=== PATIENT | female | born 1930 | race Caucasian/White ===

== ENCOUNTER 2017-12-25 17:10 | Inpatient (IN) ==
--- NOTE | 2017-12-25 17:24 | Emergency Department Note ---
Fall HPI - General Chief Complaint: Fall Stated Complaint: Fall Time Seen by Provider: 12/25/17 17:13 Source: patient Mode of arrival: EMS - History of Present Illness HPI Narrative: 87-year-old female who was seen 3 days ago for a fall in the bathroom which occurred days ago. She received some thoracic compression fractures.. She states that she was using a walker when she fell in the laundry room , she did have some help with the nursing staff with this fall. some tenderness to the right anterior rib cage area. There is no shortness of breath. no Loss of consciousness patient states she has very ;little pain, but unsure how reliable this is. she is on the indeendent living side and may need more asistance no head injury. - Related Data Home Medications Medication Instructions Recorded Confirmed FLUoxetine HCL [Fluoxetine HCl] 40 mg PO DAILYP 12/02/16 12/21/17 Gabapentin [Neurontin] 100 mg PO BID 12/02/16 12/21/17 Levothyroxine [Synthroid] 100 mcg PO DAILY 12/02/16 12/21/17 Losartan [Cozaar] 100 mg PO DAILY 12/02/16 12/21/17 Memantine [Namenda] 10 mg PO DAILY 12/02/16 12/21/17 Tolterodine [Detrol LA] 2 mg PO DAILY 12/02/16 12/21/17 Trimethoprim 100 mg PO DAILY 12/02/16 12/21/17 amLODIPine [Norvasc] 2.5 mg PO ONCE 12/02/16 12/21/17 Ranitidine HCl [Zantac] 300 mg PO DAILY 09/18/17 12/21/17 Previous Rx's Medication Instructions Recorded Naproxen 500 mg PO BID #20 tab 12/23/17 Allergies Allergy/AdvReac Type Severity Reaction Status Date / Time No Known Drug Allergies Allergy Verified 12/25/17 17:12 Fall PMH - Past Medical History Medical history: Reports: dementia, GERD, hypertension, thyroid disease, other ( urinary incontinence) Psychiatric history: Reports: depression Family history: Reports: no significant family history - Social History smoking status: Never smoker Alcohol use: Reports: None Drug use: Reports: none Physical Exam Limitations: no limitations Course Vital Signs Temperature 97.0 F 12/25/17 17:10 Pulse Rate 84 12/25/17 17:10 Respiratory Rate 14 12/25/17 17:10 Blood Pressure 134/78 12/25/17 17:10 Pulse Oximetry (%) 91 12/25/17 17:10 Temperature 98.0 F 12/25/17 19:00 Pulse Rate 76 12/25/17 18:42 Respiratory Rate 14 12/25/17 17:10 Blood Pressure 122/65 12/25/17 18:42 Pulse Oximetry (%) 94 12/25/17 18:42 Fall - Lab Data Result diagrams: 12/25/17 08:03 Lab Results 12/25/17 12/25/17 12/25/17 Range/Units 08:03 17:55 18:03 WBC 12.1 H (4.5-11.0) K/mcL RBC 4.27 (4.00-5.20) M/mcL Hgb 13.1 (12.0-15.0) g/dL Hct 39.3 (36.0-48.0) % POC Hct 38.0 (36.0-48.0) % MCV 92.0 (80.0-100.0) fL MCH 30.6 (26.0-34.0) pg MCHC 33.2 (31.0-36.0) g/dL RDW 15.2 H (11.5-14.5) % Plt Count 383 (140-440) K/mcL MPV 7.4 (7.4-10.4) fL Gran % 74.9 (38.0-78.0) % Lymph % (Auto) 13.8 L (15.5-49.0) % [place] % (Auto) 6.8 (1.0-12.0) % Eos % (Auto) 4.2 (0.0-7.0) % Baso % (Auto) 0.3 (0.0-2.0) % Gran # 9.0 H (1.8-8.0) K/mcL Lymph # (Auto) 1.7 (1.5-4.8) K/mcL [place] # (Auto) 0.8 (0.1-0.9) K/mcL Eos # (Auto) 0.5 (0.0-0.7) K/mcL Baso # (Auto) 0 (0.0-0.3) K/mcL VBG Lactic Acid (0.5-2.2) mmol/L POC Sodium 138 (133-145) mmol/L POC Potassium 4.1 (3.3-5.1) mmol/L POC Chloride 102 (96-108) mmol/L POC Total CO2 26 (22-30) mmol/L POC BUN 24 H (8-23) mg/dl POC Creatinine 0.9 (0.6-1.1) mg/dl POC Glucose 96 (70-105) mg/dL POC WB Ioniz Calcium 1.20 (1.16-1.32) mmol/L Urine Color Yellow Urine Appearance Hazy Urine pH 5.0 (5.0-9.0) Ur Specific [place] 1.019 (1.000-1.035) Urine Protein 30 A (NEG) mg/dL Urine Glucose (UA) Negative (NEG) mg/dL Urine Ketones Neg (NEG) mg/dL Urine Occult Blood 0.03 A (<0.03) mg/dL Urine Nitrate Neg (NEG) Urine Bilirubin Neg (NEG) mg/dL Urine Urobilinogen Neg (NEG) mg/dL Ur Leukocyte Esterase 500 A (NEG) /uL Urine RBC 6 H (0-1) /hpf Urine WBC 95 H (0-4) /hpf Ur Squamous Epith Cells 7 H (0-4) /hpf Ur Transition Epith Cell 4 H (0-2) /hpf Urine Bacteria Many A (0) /hpf Urine Mucus Many A (0) /hpf 12/25/17 Range/Units 18:58 WBC (4.5-11.0) K/mcL RBC (4.00-5.20) M/mcL Hgb (12.0-15.0) g/dL Hct (36.0-48.0) % POC Hct (36.0-48.0) % MCV (80.0-100.0) fL MCH (26.0-34.0) pg MCHC (31.0-36.0) g/dL RDW (11.5-14.5) % Plt Count (140-440) K/mcL MPV (7.4-10.4) fL Gran % (38.0-78.0) % Lymph % (Auto) (15.5-49.0) % [place] % (Auto) (1.0-12.0) % Eos % (Auto) (0.0-7.0) % Baso % (Auto) (0.0-2.0) % Gran # (1.8-8.0) K/mcL Lymph # (Auto) (1.5-4.8) K/mcL [place] # (Auto) (0.1-0.9) K/mcL Eos # (Auto) (0.0-0.7) K/mcL Baso # (Auto) (0.0-0.3) K/mcL VBG Lactic Acid 0.8 (0.5-2.2) mmol/L POC Sodium (133-145) mmol/L POC Potassium (3.3-5.1) mmol/L POC Chloride (96-108) mmol/L POC Total CO2 (22-30) mmol/L POC BUN (8-23) mg/dl POC Creatinine (0.6-1.1) mg/dl POC Glucose (70-105) mg/dL POC WB Ioniz Calcium (1.16-1.32) mmol/L Urine Color Urine Appearance Urine pH (5.0-9.0) Ur Specific [place] (1.000-1.035) Urine Protein (NEG) mg/dL Urine Glucose (UA) (NEG) mg/dL Urine Ketones (NEG) mg/dL Urine Occult Blood (<0.03) mg/dL Urine Nitrate (NEG) Urine Bilirubin (NEG) mg/dL Urine Urobilinogen (NEG) mg/dL Ur Leukocyte Esterase (NEG) /uL Urine RBC (0-1) /hpf Urine WBC (0-4) /hpf Ur Squamous Epith Cells (0-4) /hpf Ur Transition Epith Cell (0-2) /hpf Urine Bacteria (0) /hpf Urine Mucus (0) /hpf Disposition Pt seen by [facility]/PA only: No Referrals: Shaye Noonan MD [Primary Care Provider] -
[2017-12-25 18:27] LABS: Basophils # (Auto) 0 K/mcL (0.0-0.3); Basophils % (Auto) 0.3 % (0.0-2.0); Eosinophils # (Auto) 0.5 K/mcL (0.0-0.7); Eosinophils % (Auto) 4.2 % (0.0-7.0); Granulocytes % (Auto) 74.9 % (38.0-78.0); Lymphocytes # (Auto) 1.7 K/mcL (1.5-4.8); Lymphocytes % (Auto) 13.8 % (15.5-49.0); Mean Corpuscular HGB Conc 33.2 g/dL (31.0-36.0); Mean Corpuscular Hemoglobin 30.6 pg (26.0-34.0); Monocytes # (Auto) 0.8 K/mcL (0.1-0.9); Monocytes % (Auto) 6.8 % (1.0-12.0); Platelet Count 383 K/mcL (140-440); RBC 4.27 M/mcL (4.00-5.20); Red Cell Distribution Width 15.2 % (11.5-14.5)
[2017-12-25 18:34] LABS: Appearance,Urine HAZY; Bacteria,Urine MANY /hpf (0); Bilirubin,Urine NEG (NEG); Color,Urine YELLOW; Glucose,Urine (UA) NEGATIVE (NEG); Leukocyte Esterase,Urine 500 /uL (NEG); Mucus,Urine MANY /hpf (0); Protein,Urine 30 mg/dL (NEG); Specific Gravity,Urine 1.019 (1.000-1.035); Urine Blood 0.03 mg/dL (<0.03); Urine RBC 6 /hpf (0-1); Urine Squamous Epithelial Cell 7 /hpf (0-4); Urine Transitional Epi Cells 4 /hpf (0-2); Urine WBC 95 /hpf (0-4); Urobilinogen,Urine NEG (NEG)
[2017-12-25] MEDS: 0.9 % SODIUM CHLORIDE 1,000 ML IV SCH ×2 (19:00→22:21)
--- NOTE | 2017-12-25 19:22 | XRay Report ---
CLINICAL INFORMATION: Trauma COMPARISON: 06/03/2017 FINDINGS: Heart size, mediastinum and pulmonary vessels are normal. There is minor bibasilar atelectasis. No effusions or pneumothorax. No evidence of rib fracture IMPRESSION: Negative Interpreted and Authenticated by: Oumar Lei 12/25/17
[2017-12-25] MEDS ORDERED: LEVOFLOXACIN 500 MG/100 ML BAG IV ONE (19:46)
[2017-12-25] MEDS ORDERED: ACETAMINOPHEN 325 MG TABLET PO PRN (21:52)
[2017-12-25] MEDS ORDERED: ONDANSETRON 4 MG/2 ML VIAL IV PRN (21:52)
[2017-12-25] MEDS ORDERED: traMADol 50 MG TABLET PO PRN (21:52)
[2017-12-25] MEDS ORDERED: BISACODYL 5 MG TABLET PO PRN (21:52)
[2017-12-25] MEDS ORDERED: MAGNESIUM HYDROXIDE 30 ML ORAL.SUSP PO PRN (21:52)
[2017-12-25] MEDS: 0.9 % SODIUM CHLORIDE 10 ML SYRINGE IV SCH (22:25)
--- NOTE | 2017-12-25 22:34 | Internal Med History&Physical ---
Medical - H&P: HPI Patient information: Note initiated : 12/25/17 at 10:30 pm Service Date, if different from initiated Date: [] Patient: Fidelina Blackwell 87 y/o F admitted on 12/25/17 for Fall. Chief Complaint: fall, found to have UTI History of present illness: The patient's an 87-year-old female with a history of hypertension, dementia, depression, hypothyroidism who presents after a fall. History is obtained through reviewing old records that are available, significant Dr. Martines from the Emergency Department. The patient was seen here 2 days ago after a fall at home. She had a T8 compression fracture on imaging, was unclear if that was new or old. She does have a history of frequent falls at home and reviewing ED records. She returned home. Apparently yesterday she was seen by primary care, as she now has a fentanyl patch on and Dr. Noonan had ordered MRI of the thoracic and lumbar spine (confirming an acute T8 compression fracture). Today she was at home, had another episode of a fall which led her to be brought to the emergency department. She states that she gets lightheaded/ woozy prior to these falls, does not think she trips. She had just gotten up from a seated position prior to this fall. Her memory is poor, but apparently this occurs frequently prior to her falls (having just gotten up from a seated position, developing lightheadedness). She may have had a little shortness of breath as stated with the lightheadedness. She generally can walk as much as she wants without dyspnea or chest symptoms. In the emergency department she was found to have pyuria and bacteriuria. She does take trimethoprim to prevent urinary tract infections. She does have a history of frequent UTIs as well as urge incontinence. Lately she's been urinating more than usual, but she's had no dysuria. She denies any fevers or chills. No headache, sore throat. No dyspnea, no cough, no sputum. No chest tightness or squeezing. No nausea or vomiting or diarrhea. She does have problems with constipation and after bowel care occasionally will have loose stools. Has noted no dysuria. She has poor memory which is chronic, perhaps as worsened. She is complaining of some back pain while lying in the gurney, unclear how long that's been going on. She is having some right-sided chest pain with deep inspirations and some pain on the right chest with movement. She is unsure if she fell on her right side earlier today. Radiographs have shown no fracture. She's been hospitalized secondary to urinary tract infection which has failed outpatient therapy as she developed a while on trimethoprim and as given this is the second fall in 3 days she is not safe to be home alone in an unmonitored situation. All systems: reviewed and no additional remarkable complaints except as stated Medical - H&P: PMH Medical history: Hypertension Hypothyroidism Depression Dementia GERD Urinary incontinence/urge incontinence History of frequent UTIs Hemorrhoids History of hives Frequent falls Surgical history: The patient does not recall surgeries, though lumbar fusion and laminectomies are evident on imaging done 12/24. Pertinent family history: Father had DM, CVA; Mother had DM. Social history: She lives at [facility], on the independent side. Never smoked, rare alcohol use. Recently (in past few years) moved here to be closer to her daughter, had been living in [place]. Medical - H&P: Meds Home Medications Medication Instructions Recorded Confirmed Type FLUoxetine HCL [Fluoxetine HCl] 40 mg PO DAILYP 12/02/16 12/21/17 History Gabapentin [Neurontin] 100 mg PO BID 12/02/16 12/21/17 History Levothyroxine [Synthroid] 100 mcg PO DAILY 12/02/16 12/21/17 History Losartan [Cozaar] 100 mg PO DAILY 12/02/16 12/21/17 History Memantine [Namenda] 10 mg PO DAILY 12/02/16 12/21/17 History Tolterodine [Detrol LA] 2 mg PO DAILY 12/02/16 12/21/17 History Trimethoprim 100 mg PO DAILY 12/02/16 12/21/17 History amLODIPine [Norvasc] 2.5 mg PO ONCE 12/02/16 12/21/17 History Ranitidine HCl [Zantac] 300 mg PO DAILY 09/18/17 12/21/17 History Naproxen 500 mg PO BID #20 tab 12/23/17 Rx fentaNYL [Fentanyl] 12 mcg TD Q3 12/25/17 12/25/17 History Allergies Allergy/AdvReac Type Severity Reaction Status Date / Time No Known Drug Allergies Allergy Verified 12/25/17 17:12 Medical - H&P: Exam - Constitutional Vitals: Temp Pulse Resp BP Pulse Ox 96.8 F L 71 18 114/97 93 12/25/17 21:47 12/25/17 21:47 12/25/17 21:47 12/25/17 21:47 12/25/17 21:47 General appearance: average body habitus, cooperative, no acute distress - Head Head exam: Present: atraumatic, normal inspection - Eye Eye exam: Present: PERRL. Absent: conjunctival injection, scleral icterus - ENT ENT exam: Present: mucous membranes moist, normal oropharynx - Neck Neck exam: Present: full ROM. Absent: lymphadenopathy, meningismus, thyromegaly - Respiratory Respiratory exam: Present: normal respiratory exam, CTAB. Absent: accessory muscle use, rales, rhonchi, wheezes - Cardiovascular Cardiovascular exam: Present: normal rate and rhythm. Absent: diastolic murmur , JVD, rubs, +S3, +S4, systolic murmur - GI/Abdominal GI/Abdominal exam: Present: normal bowel sounds, soft. Absent: guarding, rigid , tenderness - Extremities Exam Extremities exam: Present: full ROM, normal inspection, neurovascular intact. Absent: calf tenderness, joint swelling, pedal edema - Back Exam Back exam: Present: tenderness (Lower thoracic area) - Neurological Exam Neurological exam: Present: alert (oriented to person and being at hospital only ), CN II-XII intact. Absent: motor sensory deficit - Psychiatric Psychiatric exam: Present: normal affect, normal mood - Skin Skin exam: Present: dry, normal color, warm Medical - H&P: Reslt - Labs CBC & Chem 7: 12/25/17 08:03 Labs: Laboratory Results - last 24 hr 12/25/17 12/25/17 12/25/17 08:03 17:55 18:03 WBC 12.1 H RBC 4.27 Hgb 13.1 Hct 39.3 POC Hct 38.0 MCV 92.0 MCH 30.6 MCHC 33.2 RDW 15.2 H Plt Count 383 MPV 7.4 Gran % 74.9 Lymph % (Auto) 13.8 L [place] % (Auto) 6.8 Eos % (Auto) 4.2 Baso % (Auto) 0.3 Gran # 9.0 H Lymph # (Auto) 1.7 [place] # (Auto) 0.8 Eos # (Auto) 0.5 Baso # (Auto) 0 VBG Lactic Acid POC Sodium 138 POC Potassium 4.1 POC Chloride 102 POC Total CO2 26 POC BUN 24 H POC Creatinine 0.9 POC Glucose 96 POC WB Ioniz Calcium 1.20 TSH Urine Color Yellow Urine Appearance Hazy Urine pH 5.0 Ur Specific [place] 1.019 Urine Protein 30 A Urine Glucose (UA) Negative Urine Ketones Neg Urine Occult Blood 0.03 A Urine Nitrate Neg Urine Bilirubin Neg Urine Urobilinogen Neg Ur Leukocyte Esterase 500 A Urine RBC 6 H Urine WBC 95 H Ur Squamous Epith Cells 7 H Ur Transition Epith Cell 4 H Urine Bacteria Many A Urine Mucus Many A - Impressions CXR with Ribs 12/25, Reviewed FINDINGS: Heart size, mediastinum and pulmonary vessels are normal. There is minor bibasilar atelectasis. No effusions or pneumothorax. No evidence of rib fracture IMPRESSION: Negative MRI T-Spine 12/24 IMPRESSION: 1. Minimal acute T4 and moderate acute T8 compression fractures 2. Chronic mild T7, T10 and T12 compression fractures arrested by kyphoplasty 3. 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 No acute fracture or other acute posttraumatic change 2. Mild chronic L1 compression fracture 3. L3-4 and L4-5 anterior/posterior fusion and wide laminectomy. L2-3 anterior fusion and L5-S1 wide laminectomy. Alignment is anatomic. There are no marrow signal abnormalities. At L2-3, there is mild central canal stenosis due to facet arthropathy. At L5-S1 there is moderate IV foraminal narrowing due to facet arthropathy with mild impingement exiting L5 nerve roots. 4. Significant degenerative stenosis at T11-T12, T12-L1 and L1-2 resulting in central canal and IV foraminal narrowing. Please see above and correlate with radiculopathy in these nerve root distributions Medical - H&P: A/P (1) UTI (urinary tract infection) Current visit: Yes Status: Acute (2) Dementia Current visit: Yes Status: Chronic (3) Hypertension Current visit: Yes Status: Chronic (4) Compression fracture of body of thoracic vertebra Current visit: Yes Status: Acute (5) Chest wall pain Current visit: Yes Status: Acute - Narrative A/P Narrative: 87-year-old female with falls at home, returns to the ED after second fallen 3 days, found to have urinary tract infection. Urinary tract infection. She failed outpatient therapy, on trimethoprim at baseline. Likely has led to some of her recent falls. No evidence of sepsis. Plan: Hospitalization, received levofloxacin in the ED, continue with that, follow-up cultures. T8 thoracic spine compression fracture. Secondary to fall 2 days ago. Confirmed by MRI yesterday. Plan: Continue with fentanyl patch, tramadol when necessary Frequent falls. Looking back through ED records, she is presented frequently with falls. Complains of feeling lightheadedness/wobbly prior to the falls. She tells me she often falls after getting up from a seated position starting to walk, though given her memory impairment it's unclear how accurate that history is. Plan: Physical therapy evaluation and treatment. Check orthostatic blood pressures. Hypertension. On 2 antihypertensives. May be contributing to orthostatic symptoms. Plan: Monitor for orthostasis, hold blood pressure medicines for now and follow her hemodynamics. Hypothyroidism. Euthyroid on current replacement dose. Plan: Continue with levothyroxine replacement. Dementia. Currently pleasant and stable. At risk for delirium however. Plan: Avoid benzodiazepines, avoid anticholinergics, frequent reorientation. Continue Namenda Disposition: Patient may need higher level of care, may need to move to an assisted living situation. Prophylaxis: Low molecular weight heparin. CODE STATUS: DO NOT RESUSCITATE. Medical - H&P: Qual - VTE Deep Vein Thrombosis/Pulmonary Embolism Present on Admission: No
[2017-12-25] MEDS: FENTANYL 12 MCG TD SCH (23:42)
[2017-12-26] MEDS: FENTANYL 12 MCG TD SCH ×2 (01:14→11:02)
[2017-12-26] MEDS: 0.9 % SODIUM CHLORIDE 1,000 ML IV SCH ×2 (01:16→09:04)
[2017-12-26] MEDS: 0.9 % SODIUM CHLORIDE 10 ML SYRINGE IV SCH ×3 (06:01→20:12)
[2017-12-26 06:05] LABS: Basophils # (Auto) 0 K/mcL (0.0-0.3); Basophils % (Auto) 0.3 % (0.0-2.0); Eosinophils # (Auto) 0.4 K/mcL (0.0-0.7); Eosinophils % (Auto) 3.4 % (0.0-7.0); Granulocytes % (Auto) 76.3 % (38.0-78.0); Lymphocytes # (Auto) 1.5 K/mcL (1.5-4.8); Lymphocytes % (Auto) 13.2 % (15.5-49.0); Mean Cell Volume 92.1 fL (80.0-100.0); Mean Corpuscular HGB Conc 33.7 g/dL (31.0-36.0); Monocytes # (Auto) 0.8 K/mcL (0.1-0.9); Monocytes % (Auto) 6.8 % (1.0-12.0); Platelet Count 315 K/mcL (140-440); Red Cell Distribution Width 14.7 % (11.5-14.5)
[2017-12-26 06:24] LABS: Blood Urea Nitrogen 17 mg/dl (8-23)
[2017-12-26] MEDS ORDERED: ENOXAPARIN 40 MG/0.4 ML SYRINGE SQ SCH (09:00)
[2017-12-26] MEDS ORDERED: LEVOFLOXACIN 500 MG/100 ML BAG IV SCH (09:00)
[2017-12-26] MEDS ORDERED: DOCUSATE SODIUM 100 MG CAPSULE PO SCH (09:00)
[2017-12-26] MEDS ORDERED: BISACODYL 5 MG TABLET PO PRN (14:04)
[2017-12-26] MEDS ORDERED: ACETAMINOPHEN 325 MG TABLET PO PRN (14:04)
[2017-12-26] MEDS ORDERED: MAGNESIUM HYDROXIDE 30 ML ORAL.SUSP PO PRN (14:04)
[2017-12-26] MEDS ORDERED: traMADol 50 MG TABLET PO PRN (14:04)
[2017-12-26] MEDS ORDERED: ONDANSETRON 4 MG/2 ML VIAL IV PRN (14:04)
[2017-12-26] MEDS: amLODIPine 5 MG TABLET PO SCH (15:59)
[2017-12-26] MEDS: ACETAMINOPHEN W/CODEINE #3 1 TABLET PO PRN ×2 (15:59→20:11)
--- NOTE | 2017-12-26 16:54 | Internal Med Progress Note ---
Medical - PN: Subj Patient information: Note initiated : 12/26/17 at 4:51 pm Service Date, if different from initiated Date: [] Patient: Fidelina Blackwell 87 y/o F admitted on 12/25/17 for Fall. Chief Complaint: f/u fall, UTI Interval history: 12/25 The patient's an 87-year-old female with a history of hypertension, dementia, depression, hypothyroidism who presents after a fall. History is obtained through reviewing old records that are available, significant Dr. Martines from the Emergency Department. The patient was seen here 2 days ago after a fall at home. She had a T8 compression fracture on imaging, was unclear if that was new or old. She does have a history of frequent falls at home and reviewing ED records. She returned home. Apparently yesterday she was seen by primary care, as she now has a fentanyl patch on and Dr. Noonan had ordered MRI of the thoracic and lumbar spine (confirming an acute T8 compression fracture). Today she was at home, had another episode of a fall which led her to be brought to the emergency department. She states that she gets lightheaded/ woozy prior to these falls, does not think she trips. She had just gotten up from a seated position prior to this fall. Her memory is poor, but apparently this occurs frequently prior to her falls (having just gotten up from a seated position, developing lightheadedness). She may have had a little shortness of breath as stated with the lightheadedness. She generally can walk as much as she wants without dyspnea or chest symptoms. In the emergency department she was found to have pyuria and bacteriuria. She does take trimethoprim to prevent urinary tract infections. She does have a history of frequent UTIs as well as urge incontinence. Lately she's been urinating more than usual, but she's had no dysuria. She denies any fevers or chills. No headache, sore throat. No dyspnea, no cough, no sputum. No chest tightness or squeezing. No nausea or vomiting or diarrhea. She does have problems with constipation and after bowel care occasionally will have loose stools. Has noted no dysuria. She has poor memory which is chronic, perhaps as worsened. She is complaining of some back pain while lying in the gurney, unclear how long that's been going on. She is having some right-sided chest pain with deep inspirations and some pain on the right chest with movement. She is unsure if she fell on her right side earlier today. Radiographs have shown no fracture. She's been hospitalized secondary to urinary tract infection which has failed outpatient therapy as she developed a while on trimethoprim and as given this is the second fall in 3 days she is not safe to be home alone in an unmonitored situation. 12/26 Patient seen and examined. Discussed with her daughter. Patient's fall for which she was seen in the ED on the happened about 2 days earlier. After being seen in the ED on the , patient was seen by Dr. Noonan, her PCP later that day. MRI was ordered, reports of which are included in the H&P and was done on 12/24 showing acute T8 compression fracture amongst other degenerative changes. She then had another fall, apparently in the laundry room and was brought to the ED. Today the patient is complaining of back pain. She's been medicated with Ultram. Home meds are reconciled, she uses Tylenol 3. A fentanyl patch was started on the . She was able to get up and work with physical therapy today. The daughter confirms that she has a history of recurrent UTIs, was on antibiotics at the time of this current UTI. - Constitutional Vitals: Vital Signs Temp Pulse Resp BP Pulse Ox 98.5 F 78 16 182/82 94 12/26/17 15:31 12/26/17 09:00 12/26/17 15:31 12/26/17 15:31 12/26/17 15:31 Period Temp Pulse Resp BP Sys/Bacon Pulse Ox Last 24 Hr 96.8 F-98.5 F 71-88 14-18 114-188/55-97 91-97 Intake and Output 12/26/17 12/26/17 12/26/17 05:59 13:59 21:59 Intake Total 1483 / 1483 Output Total 375 / 375 275 / 275 100 / 100 Balance -375 / -375 1208 / 1208 -100 / -100 Weight 128 lb 8.472 oz Patient Weight 12/27/17 05:59 Weight 128 lb 8.472 oz Intake & Output: Intake & Output 12/26/17 12/26/17 12/26/17 05:59 13:59 21:59 Intake Total 1483 / 1483 Output Total 375 / 375 275 / 275 100 / 100 Balance -375 / -375 1208 / 1208 -100 / -100 Weight 128 lb 8.472 oz Intake: IV 1243 / 1243 Sodium Chloride 0.9% 1,000 ml @ 1143 / 1143 100 mls/hr IV .Q10H [facility] Rx#: [id number] Oral 240 / 240 Output: Void Amount 375 / 375 275 / 275 100 / 100 Other: Meal Lunch Percent of Meal Consumed 100% Feeding Ability Assist with Tray Set Up # Voids 1 Exam: General: Laying in bed, looks mildly uncomfortable Chest: Clear, no rales Cardiovascular: Regular, no murmur Abdomen: Soft, nontender Neuro: Alert, oriented to self, remembers me. Moves all extremities equally. Does not recall the events leading to her arrival at the hospital yesterday. Medical - PN: Obj Da - Labs CBC & Chem 7: 12/26/17 04:22 12/26/17 04:22 Labs: Abnormal Lab Results 12/26/17 12/25/17 12/25/17 04:22 18:03 17:55 WBC 11.5 H RBC 3.80 L Hgb 11.8 L Hct 34.9 L RDW 14.7 H Lymph % (Auto) 13.2 L Gran # 8.8 H POC BUN 24 H Urine Protein 30 A Urine Occult Blood 0.03 A Ur Leukocyte Esterase 500 A Urine RBC 6 H Urine WBC 95 H Ur Squamous Epith Cells 7 H Ur Transition Epith Cell 4 H Urine Bacteria Many A Urine Mucus Many A 12/25/17 08:03 WBC 12.1 H RBC Hgb Hct RDW 15.2 H Lymph % (Auto) 13.8 L Gran # 9.0 H POC BUN Urine Protein Urine Occult Blood Ur Leukocyte Esterase Urine RBC Urine WBC Ur Squamous Epith Cells Ur Transition Epith Cell Urine Bacteria Urine Mucus Microbiology 12/25/17 17:55 Urine Culture - Preliminary Urine - Clean Void Mid-Stream Gram negative bacillus 12/25/17 22:09 MRSA (PCR) - Final Nose Meds: Medications Acetaminophen (Tylenol) 650 mg PO Q6HP PRN PRN Reason: PAIN/FEVER > 101 Acetaminophen/Codeine Phosphate (Tylenol #3) 1 tab PO TIDP PRN PRN Reason: Pain Last Admin: 12/26/17 15:59 Dose: 1 tab Amlodipine Besylate (Norvasc) 2.5 mg PO DAILY [facility] Last Admin: 12/26/17 15:59 Dose: 2.5 mg Bisacodyl (Dulcolax) 10 mg PO DAILYP PRN PRN Reason: Constipation Docusate Sodium (Colace) 100 mg PO BID [facility] Enoxaparin Sodium (Lovenox) 40 mg SQ DAILY [facility] Famotidine (Pepcid) 20 mg PO DAILY [facility] Fentanyl (Duragesic) 12 mcg TOPICAL Q72H [facility] Fluoxetine HCl (Prozac) 40 mg PO DAILY [facility] Gabapentin (Neurontin) 200 mg PO BID [facility] Levofloxacin (Levaquin) 500 mg in 100 mls @ 100 mls/hr IV Q24H [facility] Levothyroxine Sodium (Synthroid) 100 mcg PO QAMAC [facility] Losartan Potassium (Cozaar) 100 mg PO DAILY [facility] Magnesium Hydroxide (Milk Of Magnesia) 30 ml PO DAILYP PRN PRN Reason: Constipation Memantine (Namenda) 10 mg PO DAILY [facility] Ondansetron HCl (Zofran) 4 mg IV Q4HP PRN PRN Reason: Nausea And Vomiting Sodium Chloride (Saline Flush) 10 ml IV Q8 [facility] Tolterodine Tartrate (Detrol La) 2 mg PO DAILY [facility] Vitamin D (Vitamin D3) 400 unit PO DAILY [facility] Medical - PN: A/P - Time Spent With Patient Total time spent is greater than 50% in coordination of care (as documented) at patient's floor/unit and/or counseling patient: 25 - 35 minutes (1) UTI (urinary tract infection) Status: Acute Current Visit: Yes (2) Dementia Status: Chronic Current Visit: Yes (3) Hypertension Status: Chronic Current Visit: Yes (4) Compression fracture of body of thoracic vertebra Status: Acute Current Visit: Yes (5) Chest wall pain Status: Acute Current Visit: Yes - Narrative A/P Narrative: 87-year-old female with falls at home, returns to the ED after second fallen 3 days, found to have urinary tract infection. Urinary tract infection. Failed outpatient therapy. Gram-negative bacillus on initial culture. Tolerating levofloxacin. White count still mildly elevated. Plan: Continue levofloxacin, follow-up cultures, adjust antibiotic as needed T8 thoracic spine compression fracture. Secondary to fall on about 12/21. Confirmed by MRI 12/24. Plan: Continue with fentanyl patch, resume PRN home Tylenol #3 Frequent falls. History of feeling lightheaded. No arrhythmia on telemetry. Plan: Physical therapy evaluation and treatment. [facility]red [facility]. Hypertension. On 2 antihypertensives. May be contributing to orthostatic symptoms, however blood pressures running high off medications, and was not orthostatic when checked earlier today. Plan: Resume home blood pressure medications, monitor for orthostasis. Hypothyroidism. Euthyroid on current replacement dose. Plan: Continue with levothyroxine replacement. Dementia. Currently pleasant and stable. At risk for delirium. Plan: Avoid benzodiazepines, avoid anticholinergics, frequent reorientation. Continue Namenda Disposition: Patient may need higher level of care, may need to move to an assisted living situation. Medical - PN: Qual - VTE Deep Vein Thrombosis/Pulmonary Embolism Present on Admission: No
[2017-12-26] MEDS: DOCUSATE SODIUM 100 MG CAPSULE PO SCH (20:10)
[2017-12-26] MEDS: GABAPENTIN 100 MG CAPSULE PO SCH (20:11)
[2017-12-26] MEDS ORDERED: fentaNYL 12 MCG PATCH TOPICAL SCH ×2 (21:00)
[2017-12-26] MEDS ORDERED: cloNIDine HCL 0.1 MG TABLET PO PRN (21:16)
[2017-12-26] MEDS ORDERED: hydrALAZINE 20 MG/ML VIAL IV PRN (21:16)
[2017-12-26] MEDS ORDERED: cloNIDine HCL 0.1 MG TABLET ONE (21:24)
[2017-12-26] MEDS: QUEtiapine 25 MG TABLET PO SCH (22:36)
[2017-12-27 05:53] LABS: Basophils # (Auto) 0 K/mcL (0.0-0.3); Basophils % (Auto) 0.3 % (0.0-2.0); Eosinophils # (Auto) 0.5 K/mcL (0.0-0.7); Eosinophils % (Auto) 4.6 % (0.0-7.0); Lymphocytes # (Auto) 1.7 K/mcL (1.5-4.8); Lymphocytes % (Auto) 16.6 % (15.5-49.0); Mean Cell Volume 92.3 fL (80.0-100.0); Mean Corpuscular HGB Conc 33.2 g/dL (31.0-36.0); Mean Corpuscular Hemoglobin 30.7 pg (26.0-34.0); Monocytes # (Auto) 0.6 K/mcL (0.1-0.9); Monocytes % (Auto) 6.5 % (1.0-12.0); Platelet Count 323 K/mcL (140-440); RBC 3.72 M/mcL (4.00-5.20); Red Cell Distribution Width 14.7 % (11.5-14.5)
[2017-12-27] MEDS: 0.9 % SODIUM CHLORIDE 10 ML SYRINGE IV SCH ×3 (05:56→20:19)
[2017-12-27 06:11] LABS: Blood Urea Nitrogen 10 mg/dl (8-23)
[2017-12-27] MEDS: TOLTERODINE 2 MG CAP.XL.24H PO SCH (07:29)
[2017-12-27] MEDS: LEVOTHYROXINE 100 MCG TABLET PO SCH (07:30)
[2017-12-27] MEDS: LEVOFLOXACIN 500 MG/100 ML BAG IV SCH (08:47)
[2017-12-27] MEDS: FLUoxetine HCL 20 MG CAPSULE PO SCH (08:48)
[2017-12-27] MEDS: GABAPENTIN 100 MG CAPSULE PO SCH ×2 (08:49→20:18)
[2017-12-27] MEDS: VITAMIN D3 400 UNIT TABLET PO SCH (08:49)
[2017-12-27] MEDS: MEMANTINE 10 MG TABLET PO SCH (08:49)
[2017-12-27] MEDS: FAMOTIDINE 20 MG TABLET PO SCH (08:50)
[2017-12-27] MEDS: amLODIPine 5 MG TABLET PO SCH (08:50)
[2017-12-27] MEDS: DOCUSATE SODIUM 100 MG CAPSULE PO SCH ×2 (08:51→20:18)
[2017-12-27] MEDS: ENOXAPARIN 40 MG/0.4 ML SYRINGE SQ SCH (08:52)
[2017-12-27] MEDS ORDERED: LOSARTAN 50 MG TABLET PO SCH (09:00)
[2017-12-27] MEDS: ACETAMINOPHEN W/CODEINE #3 1 TABLET PO PRN ×2 (10:34→19:27)
--- NOTE | 2017-12-27 14:15 | Internal Med Progress Note ---
Medical - PN: Subj Patient information: Note initiated : 12/27/17 at 2:13 pm Service Date, if different from initiated Date: [] Patient: Fidelina Blackwell 87 y/o F admitted on 12/25/17 for Fall,UTI. Chief Complaint: f/u fall, UTI Interval history: 12/25 The patient's an 87-year-old female with a history of hypertension, dementia, depression, hypothyroidism who presents after a fall. History is obtained through reviewing old records that are available, significant Dr. Martines from the Emergency Department. The patient was seen here 2 days ago after a fall at home. She had a T8 compression fracture on imaging, was unclear if that was new or old. She does have a history of frequent falls at home and reviewing ED records. She returned home. Apparently yesterday she was seen by primary care, as she now has a fentanyl patch on and Dr. Noonan had ordered MRI of the thoracic and lumbar spine (confirming an acute T8 compression fracture). Today she was at home, had another episode of a fall which led her to be brought to the emergency department. She states that she gets lightheaded/ woozy prior to these falls, does not think she trips. She had just gotten up from a seated position prior to this fall. Her memory is poor, but apparently this occurs frequently prior to her falls (having just gotten up from a seated position, developing lightheadedness). She may have had a little shortness of breath as stated with the lightheadedness. She generally can walk as much as she wants without dyspnea or chest symptoms. In the emergency department she was found to have pyuria and bacteriuria. She does take trimethoprim to prevent urinary tract infections. She does have a history of frequent UTIs as well as urge incontinence. Lately she's been urinating more than usual, but she's had no dysuria. She denies any fevers or chills. No headache, sore throat. No dyspnea, no cough, no sputum. No chest tightness or squeezing. No nausea or vomiting or diarrhea. She does have problems with constipation and after bowel care occasionally will have loose stools. Has noted no dysuria. She has poor memory which is chronic, perhaps as worsened. She is complaining of some back pain while lying in the gurney, unclear how long that's been going on. She is having some right-sided chest pain with deep inspirations and some pain on the right chest with movement. She is unsure if she fell on her right side earlier today. Radiographs have shown no fracture. She's been hospitalized secondary to urinary tract infection which has failed outpatient therapy as she developed a while on trimethoprim and as given this is the second fall in 3 days she is not safe to be home alone in an unmonitored situation. 12/26 Patient seen and examined. Discussed with her daughter. Patient's fall for which she was seen in the ED on the happened about 2 days earlier. After being seen in the ED on the , patient was seen by Dr. Noonan, her PCP later that day. MRI was ordered, reports of which are included in the H&P and was done on 12/24 showing acute T8 compression fracture amongst other degenerative changes. She then had another fall, apparently in the laundry room and was brought to the ED. Today the patient is complaining of back pain. She's been medicated with Ultram. Home meds are reconciled, she uses Tylenol 3. A fentanyl patch was started on the . She was able to get up and work with physical therapy today. The daughter confirms that she has a history of recurrent UTIs, was on antibiotics at the time of this current UTI. 12/27 No complaints today. Was anxious little confused overnight last night, feels fine this morning. Less suprapubic discomfort. Working with therapies. Back pain generally controlled. - Constitutional Vitals: Vital Signs Temp Pulse Resp BP Pulse Ox 98.4 F 72 16 118/57 94 12/27/17 12:12 12/27/17 12:12 12/27/17 12:12 12/27/17 12:12 12/27/17 12:12 Period Temp Pulse Resp BP Sys/Bacon Pulse Ox Last 24 Hr 98.3 F-99.0 F 71-86 -18 101-210/56-88 92-95 Intake and Output 12/27/17 12/27/17 12/27/17 05:59 13:59 21:59 Intake Total 300 / 300 480 / 480 Output Total 350 / 350 Balance -50 / -50 480 / 480 Intake & Output: Intake & Output 12/27/17 12/27/17 12/27/17 05:59 13:59 21:59 Intake Total 300 / 300 480 / 480 Output Total 350 / 350 Balance -50 / -50 480 / 480 Intake: Oral 300 / 300 480 / 480 Output: Void Amount 350 / 350 Other: Meal Nourishment/Supplement Breakfast Percent of Meal Consumed 100% 100% Feeding Ability Independent Independent # Voids 1 Exam: General: In no acute distress Chest: Clear, respirations are unlabored Cardiovascular: Regular Abdomen: Soft, very mild suprapubic tenderness, active bowel sounds Neuro: Alert, oriented person, recalls me from prior visits,in the hospital for urine infection. Medical - PN: Obj Da - Labs CBC & Chem 7: 12/27/17 04:10 12/27/17 04:10 Labs: Abnormal Lab Results 12/27/17 12/26/17 12/25/17 04:10 04:22 18:03 WBC 11.5 H RBC 3.72 L 3.80 L Hgb 11.4 L 11.8 L Hct 34.3 L 34.9 L RDW 14.7 H 14.7 H Lymph % (Auto) 13.2 L Gran # 8.8 H POC BUN 24 H Urine Protein Urine Occult Blood Ur Leukocyte Esterase Urine RBC Urine WBC Ur Squamous Epith Cells Ur Transition Epith Cell Urine Bacteria Urine Mucus 12/25/17 12/25/17 17:55 08:03 WBC 12.1 H RBC Hgb Hct RDW 15.2 H Lymph % (Auto) 13.8 L Gran # 9.0 H POC BUN Urine Protein 30 A Urine Occult Blood 0.03 A Ur Leukocyte Esterase 500 A Urine RBC 6 H Urine WBC 95 H Ur Squamous Epith Cells 7 H Ur Transition Epith Cell 4 H Urine Bacteria Many A Urine Mucus Many A Microbiology 12/25/17 17:55 Urine Culture - Final Urine - Clean Void Mid-Stream Klebsiella pneumoniae 12/25/17 19:22 Blood Culture - Preliminary Blood 12/25/17 18:58 Blood Culture - Preliminary Blood Meds: Medications Acetaminophen (Tylenol) 650 mg PO Q6HP PRN PRN Reason: PAIN/FEVER > 101 Acetaminophen/Codeine Phosphate (Tylenol #3) 1 tab PO TIDP PRN PRN Reason: Pain Last Admin: 12/27/17 10:34 Dose: 1 tab Amlodipine Besylate (Norvasc) 2.5 mg PO DAILY [facility] Last Admin: 12/27/17 08:50 Dose: 2.5 mg Bisacodyl (Dulcolax) 10 mg PO DAILYP PRN PRN Reason: Constipation Clonidine HCl (Catapres) 0.1 mg PO Q4HP PRN PRN Reason: Hypertension Docusate Sodium (Colace) 100 mg PO BID [facility] Last Admin: 12/27/17 08:51 Dose: 100 mg Enoxaparin Sodium (Lovenox) 40 mg SQ DAILY [facility] Last Admin: 12/27/17 08:52 Dose: 40 mg Famotidine (Pepcid) 20 mg PO DAILY [facility] Last Admin: 12/27/17 08:50 Dose: 20 mg Fentanyl (Duragesic) 12 mcg TOPICAL Q72H [facility] Last Admin: 12/26/17 20:11 Dose: 12 mcg Fluoxetine HCl (Prozac) 40 mg PO DAILY [facility] Last Admin: 12/27/17 08:48 Dose: 40 mg Gabapentin (Neurontin) 200 mg PO BID [facility] Last Admin: 12/27/17 08:49 Dose: 200 mg Hydralazine HCl (Apresoline) 10 mg IV Q4-6HP PRN PRN Reason: Hypertension Last Admin: 12/26/17 22:11 Dose: 10 mg Levofloxacin (Levaquin) 500 mg in 100 mls @ 100 mls/hr IV Q24H [facility] Last Admin: 12/27/17 08:47 Dose: 100 mls/hr Levothyroxine Sodium (Synthroid) 100 mcg PO QAMAC [facility] Last Admin: 12/27/17 07:30 Dose: 100 mcg Losartan Potassium (Cozaar) 100 mg PO DAILY [facility] Last Admin: 12/27/17 08:51 Dose: 100 mg Magnesium Hydroxide (Milk Of Magnesia) 30 ml PO DAILYP PRN PRN Reason: Constipation Memantine (Namenda) 10 mg PO DAILY [facility] Last Admin: 12/27/17 08:49 Dose: 10 mg Ondansetron HCl (Zofran) 4 mg IV Q4HP PRN PRN Reason: Nausea And Vomiting Quetiapine Fumarate (Seroquel) 25 mg PO HS [facility] Last Admin: 12/26/17 22:36 Dose: 25 mg Sodium Chloride (Saline Flush) 10 ml IV Q8 [facility] Last Admin: 12/27/17 05:56 Dose: 10 ml Tolterodine Tartrate (Detrol La) 2 mg PO DAILY [facility] Last Admin: 12/27/17 07:29 Dose: 2 mg Vitamin D (Vitamin D3) 400 unit PO DAILY [facility] Last Admin: 12/27/17 08:49 Dose: 400 unit Medical - PN: A/P - Time Spent With Patient Total time spent is greater than 50% in coordination of care (as documented) at patient's floor/unit and/or counseling patient: 25 - 35 minutes (1) UTI (urinary tract infection) Status: Acute Current Visit: Yes (2) Dementia Status: Chronic Current Visit: Yes (3) Hypertension Status: Chronic Current Visit: Yes (4) Compression fracture of body of thoracic vertebra Status: Acute Current Visit: Yes (5) Chest wall pain Status: Acute Current Visit: Yes - Narrative A/P Narrative: 87-year-old female with falls at home, returns to the ED after second fallen 3 days, found to have urinary tract infection. Urinary tract infection. Failed outpatient therapy. Klebsiella pneumoniae on culture. Tolerating levofloxacin. White count has now normalized. Blood cultures without growth to date. Plan: Continue levofloxacin, follow-up blood cultures T8 thoracic spine compression fracture. Secondary to fall on about 12/21. Confirmed by MRI 12/24. Plan: Continue with fentanyl patch, resume PRN home Tylenol #3 Frequent falls. History of feeling lightheaded. No arrhythmia on telemetry, no orthostasis. Plan: Physical therapy evaluation and treatment. Hypertension. On 2 antihypertensives. May be contributing to orthostatic symptoms, however blood pressures were high off of medications after admission. This morning, SBP did fall from 123 to 101 from supine to standing. Plan: Decrease losartan to 50 mg daily, continue amlodipine at 2.5 mg/day. Recheck orthostatics in AM. Hypothyroidism. Euthyroid on current replacement dose. Plan: Continue with levothyroxine replacement. Dementia. Currently pleasant and stable. At risk for delirium. Plan: Avoid benzodiazepines, avoid anticholinergics, frequent reorientation. Continue Namenda Disposition: Patient will need further strengthening before returning to an independent living. Should be stable for discharge tomorrow if blood cultures remain negative. Medical - PN: Qual - VTE Deep Vein Thrombosis/Pulmonary Embolism Present on Admission: No
--- NOTE | 2017-12-27 19:39 | Consultation ---
DATE OF CONSULTATION: 12/27/2017 CHIEF COMPLAINT: Back pain. HISTORY OF PRESENT ILLNESS: The patient is an 87-year-old woman who has a long history of thoracic and lumbar back pain. In 2013, she fell and had compression fractures and vertebroplasty at T7, 10 and 12. She apparently has gotten along regarding that, had chronic complaints of back pain and she fell again apparently on approximately 10/25. She has been having a lot of trouble with urinary tract infections, recurrent despite prophylaxis and was admitted to the hospital for more intensive therapy and treatment of her back pain. Dr. Noonan ordered an MRI of the thoracic and lumbar spine which shows an acute T8-T4 compression fracture. Today, she was seen and states her pain is definitely better. She still complains of some back pain but states while she is very unstable on her feet she can get up and move around pretty well. REVIEW OF SYSTEMS: Remarkable in that she states she has a little less urgency regarding her need to void today and her pain is somewhat better today as well. OBJECTIVE: GENERAL: On exam the patient is able to stand and ambulate without difficulty. She is able to get in and out of bed, going from a standing to sitting or lying position and back up again with minimal or no pain behavior or difficulty. LUNGS: Clear to auscultation. CARDIOVASCULAR: Regular rate and rhythm without murmur. EXTREMITIES: Are negative for edema. BACK: Back exam is remarkable in that percussion of her spinous processes is largely nontender. She has some minor tenderness to the lumbar spine. RADIOGRAPHIC STUDIES: The patient's thoracic MRI was viewed and this is remarkable in the stir images for having signal changes in T8 and T4. She has previous vertebroplasty at T7, 10 and 12. She has an extensive fusion of the lumbar spine. IMPRESSION: The patient is an 87-year-old woman who has a significant fall risk. Apparently fell approximately 5 days ago and was admitted with significant back pain which has markedly improved. At this point, it looks like she will go ahead and heal those fractures on her own. PLAN: I explained to the patient that she would continue to improve. If she has a marked escalation of her back pain, I would repeat AP and lateral thoracic spine films and if she continues to collapse those T4-T8 fractures, then vertebroplasty may be in order at that time. LES:tyrese Job ID: [id number] Doc ID: [id number] Robert Greer MD
[2017-12-27] MEDS: QUEtiapine 25 MG TABLET PO SCH (20:18)
[2017-12-28 05:32] LABS: Basophils # (Auto) 0 K/mcL (0.0-0.3); Basophils % (Auto) 0.3 % (0.0-2.0); Eosinophils # (Auto) 0.4 K/mcL (0.0-0.7); Lymphocytes # (Auto) 1.7 K/mcL (1.5-4.8); Lymphocytes % (Auto) 16.1 % (15.5-49.0); Mean Cell Volume 92.9 fL (80.0-100.0); Mean Corpuscular Hemoglobin 30.6 pg (26.0-34.0); Monocytes # (Auto) 0.7 K/mcL (0.1-0.9); Monocytes % (Auto) 6.6 % (1.0-12.0); Platelet Count 349 K/mcL (140-440); RBC 3.95 M/mcL (4.00-5.20); Red Cell Distribution Width 15.1 % (11.5-14.5)
[2017-12-28 06:17] LABS: Blood Urea Nitrogen 21 mg/dl (8-23)
[2017-12-28] MEDS: VITAMIN D3 400 UNIT TABLET PO SCH (08:04)
[2017-12-28] MEDS: FLUoxetine HCL 20 MG CAPSULE PO SCH (08:04)
[2017-12-28] MEDS: ACETAMINOPHEN W/CODEINE #3 1 TABLET PO PRN ×2 (08:05→13:13)
[2017-12-28] MEDS: amLODIPine 5 MG TABLET PO SCH (08:05)
[2017-12-28] MEDS: FAMOTIDINE 20 MG TABLET PO SCH (08:06)
[2017-12-28] MEDS: GABAPENTIN 100 MG CAPSULE PO SCH (08:06)
[2017-12-28] MEDS: TOLTERODINE 2 MG CAP.XL.24H PO SCH (08:06)
[2017-12-28] MEDS: MEMANTINE 10 MG TABLET PO SCH (08:06)
[2017-12-28] MEDS: DOCUSATE SODIUM 100 MG CAPSULE PO SCH (08:06)
[2017-12-28] MEDS: ENOXAPARIN 40 MG/0.4 ML SYRINGE SQ SCH (08:06)
[2017-12-28] MEDS: LEVOTHYROXINE 100 MCG TABLET PO SCH (08:08)
[2017-12-28] MEDS: 0.9 % SODIUM CHLORIDE 10 ML SYRINGE IV SCH (08:09)
[2017-12-28] MEDS ORDERED: LOSARTAN 50 MG TABLET PO SCH (09:00)
[2017-12-28] MEDS ORDERED: LIDOCAINE PATCH TOPICAL SCH ×2 (10:00→22:00)
[2017-12-28] MEDS: LEVOFLOXACIN 500 MG/100 ML BAG IV SCH (10:47)
--- NOTE | 2017-12-28 12:42 | Discharge Summary ---
Medical - DS: Prov Patient information: Note initiated : 12/28/17 at 12:40 pm Service Date, if different from initiated Date: [] Patient: Fidelina Blackwell 87 y/o F admitted on 12/25/17 for Fall,UTI. Date of admission: 12/25/17 21:47 Discharge date: 12/28/17 Primary care physician: Shaye Noonan Attending physician on admission: Jelena Greco Consults: 12/25/17 20:34 Consult to Physician [CONS] Stat Comment: Consulting Provider: Jelena Greco Reason For Exam: Physician to Consult Attending physician on discharge: Jelena Greco Medical - DS: Meds - Discharge Medications Prescriptions: Acetaminophen W/Codeine #3 [Tylenol #3] 1 tab PO TIDP PRN #30 tab PRN Reason: Pain fentaNYL [Fentanyl] 12 mcg TD Q72H #10 patch.td72 Nitrofurantoin Monohyd/M-Cryst [Macrobid 100 mg Capsule] 100 mg PO BID #8 cap Active and Home Medications: Home Medications FLUoxetine HCL [Fluoxetine HCl] 40 mg PO DAILY 12/02/16 [History Confirmed 12/26 Last Taken Unknown] Gabapentin [Neurontin] 200 mg PO BID 12/02/16 [History Confirmed 12/26/17 Last Taken Unknown] Levothyroxine [Synthroid] 100 mcg PO QAMAC 12/02/16 [History Confirmed 12/26/17 Last Taken Unknown] Losartan [Cozaar] 100 mg PO DAILY 12/02/16 [History Confirmed 12/26/17 Last Taken Unknown] Memantine [Namenda] 10 mg PO DAILY 12/02/16 [History Confirmed 12/26/17 Last Taken Unknown] Tolterodine [Detrol LA] 2 mg PO DAILY 12/02/16 [History Confirmed 12/26/17 Last Taken Unknown] Trimethoprim 100 mg PO DAILY 12/02/16 [History Confirmed 12/26/17 Last Taken Unknown] amLODIPine [Norvasc] 2.5 mg PO DAILY 12/02/16 [History Confirmed 12/26/17 Last Taken Unknown] Ranitidine HCl [Zantac] 300 mg PO DAILY 09/18/17 [History Confirmed 12/26/17 Last Taken Unknown] fentaNYL [Fentanyl] 12 mcg TD Q72H 12/25/17 [History Confirmed 12/26/17 Last Taken 12/23/17 21:00] Acetaminophen W/Codeine #3 [Tylenol #3] 1 tab PO TIDP PRN 12/26/17 [History Confirmed 12/26/17 Last Taken Unknown] Vitamin D3 400 unit PO DAILY 12/26/17 [History Confirmed 12/26/17 Last Taken Unknown] Medical - DS: Hosp Hospital course: 12/25 The patient's an 87-year-old female with a history of hypertension, dementia, depression, hypothyroidism who presents after a fall. History is obtained through reviewing old records that are available, significant Dr. Martines from the Emergency Department. The patient was seen here 2 days ago after a fall at home. She had a T8 compression fracture on imaging, was unclear if that was new or old. She does have a history of frequent falls at home and reviewing ED records. She returned home. Apparently yesterday she was seen by primary care, as she now has a fentanyl patch on and Dr. Noonan had ordered MRI of the thoracic and lumbar spine (confirming an acute T8 compression fracture). Today she was at home, had another episode of a fall which led her to be brought to the emergency department. She states that she gets lightheaded/ woozy prior to these falls, does not think she trips. She had just gotten up from a seated position prior to this fall. Her memory is poor, but apparently this occurs frequently prior to her falls (having just gotten up from a seated position, developing lightheadedness). She may have had a little shortness of breath as stated with the lightheadedness. She generally can walk as much as she wants without dyspnea or chest symptoms. In the emergency department she was found to have pyuria and bacteriuria. She does take trimethoprim to prevent urinary tract infections. She does have a history of frequent UTIs as well as urge incontinence. Lately she's been urinating more than usual, but she's had no dysuria. She denies any fevers or chills. No headache, sore throat. No dyspnea, no cough, no sputum. No chest tightness or squeezing. No nausea or vomiting or diarrhea. She does have problems with constipation and after bowel care occasionally will have loose stools. Has noted no dysuria. She has poor memory which is chronic, perhaps as worsened. She is complaining of some back pain while lying in the [facility], unclear how long that's been going on. She is having some right-sided chest pain with deep inspirations and some pain on the right chest with movement. She is unsure if she fell on her right side earlier today. Radiographs have shown no fracture. She's been hospitalized secondary to urinary tract infection which has failed outpatient therapy as she developed a while on trimethoprim and as given this is the second fall in 3 days she is not safe to be home alone in an unmonitored situation. 12/26 Patient seen and examined. Discussed with her daughter. Patient's fall for which she was seen in the ED on the happened about 2 days earlier. After being seen in the ED on the , patient was seen by Dr. Noonan, her PCP later that day. MRI was ordered, reports of which are included in the H&P and was done on 12/24 showing acute T8 compression fracture amongst other degenerative changes. She then had another fall, apparently in the laundry room and was brought to the ED. Today the patient is complaining of back pain. She's been medicated with Ultram. Home meds are reconciled, she uses Tylenol 3. A fentanyl patch was started on the . She was able to get up and work with physical therapy today. The daughter confirms that she has a history of recurrent UTIs, was on antibiotics at the time of this current UTI. 12/27 No complaints today. Was anxious little confused overnight last night, feels fine this morning. Less suprapubic discomfort. Working with therapies. Back pain generally controlled. 12/28 Remains stable. Back pain about the same. Also some sternal pain (chronic). Seen by pain management, they do not currently recommend kyphoplasty or a brace for the compression fracture. Discharge diagnosis: Urinary tract infection Secondary discharge diagnosis: T8 and T4 thoracic spine compression fracture. Frequent falls Hypertension Hypothyroidism Dementia Pertinent studies/significant findings: Urine culture positive for Klebsiella pneumoniae, only resistant to ampicillin - Time Spent with Patient Total time spent providing and/or coordinating discharge services: Greater than 30 minutes Medical - DS: Exam - Constitutional Vitals: Vital Signs Temp Pulse Resp BP BP Pulse Ox 12/28/17 07:06 99 F 14 159/83 92 12/28/17 04:43 166/82 12/28/17 04:00 99.1 F H 75 18 192/83 94 05/01/18 00:00 97.8 F 73 22 166/80 93 12/27/17 20:00 98.1 F 73 24 H 131/78 94 12/27/17 15:34 98 F 16 112/66 93 Intake and Output 12/27/17 12/28/17 12/28/17 21:59 05:59 13:59 Intake Total 620 / 620 400 / 400 240 / 240 Output Total 200 / 200 352 / 352 250 / 250 Balance 420 / 420 48 / 48 -10 / -10 Intake: Oral 620 / 620 400 / 400 240 / 240 Output: Void Amount 200 / 200 351 / 351 250 / 250 # of times incontinent of urine Other: Meal Dinner Breakfast Percent of Meal Consumed 75% 100% Feeding Ability Independent Independent # Voids 1 2 Weight 127 lb Additional comments: General: No acute distress Chest: Clear, unlabored Cardio vascular: Regular, no peripheral edema Abdomen: Soft, very mild suprapubic discomfort to palpation Neuro: Alert, oriented to self, knows she's in the hospital, moves all extremities equally. Gait is unsteady. Medical - DS: Data Labs on day of discharge: Labs from last 24 hours 12/28/17 12/28/17 03:45 03:45 WBC 10.5 RBC 3.95 L Hgb 12.1 Hct 36.7 MCV 92.9 MCH 30.6 MCHC 33.0 RDW 15.1 H Plt Count 349 MPV 7.6 Gran % 73.0 Lymph % (Auto) 16.1 [place] % (Auto) 6.6 Eos % (Auto) 4.0 Baso % (Auto) 0.3 Gran # 7.7 Lymph # (Auto) 1.7 [place] # (Auto) 0.7 Eos # (Auto) 0.4 Baso # (Auto) 0 Sodium 139 Potassium 3.8 Chloride 100 Carbon Dioxide 25 Anion Gap 14.0 BUN 21 Creatinine 0.8 GFR Calculation 67 Glucose 95 Calcium 9.0 Preliminary micro results at discharge 12/25/17 19:22 Blood Culture - Preliminary Blood 12/25/17 18:58 Blood Culture - Preliminary Blood - Impressions Rib X-ray FINDINGS: Heart size, mediastinum and pulmonary vessels are normal. There is minor bibasilar atelectasis. No effusions or pneumothorax. No evidence of rib fracture IMPRESSION: Negative MRI T-Spine 4/27 IMPRESSION: 1. Minimal acute T4 and moderate acute T8 compression fractures 2. Chronic mild T7, T10 and T12 compression fractures arrested by kyphoplasty 3. 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 No acute fracture or other acute posttraumatic change 2. Mild chronic L1 compression fracture 3. L3-4 and L4-5 anterior/posterior fusion and wide laminectomy. L2-3 anterior fusion and L5-S1 wide laminectomy. Alignment is anatomic. There are no marrow signal abnormalities. At L2-3, there is mild central canal stenosis due to facet arthropathy. At L5-S1 there is moderate IV foraminal narrowing due to facet arthropathy with mild impingement exiting L5 nerve roots. 4. Significant degenerative stenosis at T11-T12, T12-L1 and L1-2 resulting in central canal and IV foraminal narrowing. Please see above and correlate with radiculopathy in these nerve root distributions Medical - DS: A/P - Patient/Caregiver Discharge Instructions Activity: ambulate only with your walker, as per physical therapy, increase activity as tolerated Diet: Regular Diet Other Amb Orders: Physical Therapy at Discharge - General Location: Determined By Patient - Problem Maintenance (1) UTI (urinary tract infection) Status: Resolved Qualifiers: Urinary tract infection type: acute cystitis Hematuria presence: without hematuria Qualified Code(s): N30.00 - Acute cystitis without hematuria (2) Dementia Status: Chronic Qualifiers: Dementia type: unspecified type Dementia behavioral disturbance: without behavioral disturbance Qualified Code(s): F03.90 - Unspecified dementia without behavioral disturbance (3) Hypertension Status: Chronic Qualifiers: Hypertension type: essential hypertension Qualified Code(s): I10 - Essential (primary) hypertension (4) Compression fracture of body of thoracic vertebra Status: Acute (5) Chest wall pain Status: Acute - Follow up Plan Follow up with: Shaye Noonan MD [Primary Care Provider] - (1-2 weeks) Disposition: Xfer SNF Prognosis: Fair Rehab Potential: Fair I certify that the patient requires SNF services: Yes Overall status at discharge: patient is progressing back to baseline Medical - DS: Qual - VTE Deep Vein Thrombosis/Pulmonary Embolism Present on Admission: No
== END 2017-12-28 14:00 | DRG 690 ==
LOC: ED 17:10 → ICU 21:47 → MEDSUR 12-26 14:45
PROVIDERS: ADMIT Internal Medicine; ATTEND Internal Medicine

== ENCOUNTER 2018-03-07 18:37 | Inpatient (IN) ==
--- NOTE | 2018-03-07 18:59 | Emergency Department Note ---
Chest Pain HPI - General Chief Complaint: Chest Pain Stated Complaint: Chest Pain Time Seen by Provider: 03/07/18 18:52 Source: patient, EMS Mode of arrival: EMS Limitations: altered mental status - History of Present Illness HPI Narrative: Patient is sent from [facility] at the request of either her primary care or on- call for her primary care after having a sodium of 122 and then some chest pains that have been present off and on. Patient has had several falls in the past several days and the nurse at [facility] thought that the chest discomforts are most likely related to these falls. Patient has significant dementia making her history quite difficult and unreliable. She reports that her balance is off but is unable to otherwise explain why she is falling. Her review of systems is limited and unreliable. REVIEW OF SYSTEMS: Patient indicates she has some cough and some abdominal pain and some nausea but no vomiting and some headaches and some dizziness. It appears that most questions I asked her she will respond positively to. This makes her history quite unreliable. [facility] reports no other specific problems or symptoms. - Related Data Home Medications Medication Instructions Recorded Confirmed FLUoxetine HCL [Fluoxetine HCl] 40 mg PO DAILY 12/02/16 12/26/17 Levothyroxine [Synthroid] 100 mcg PO QAMAC 12/02/16 12/26/17 Losartan [Cozaar] 100 mg PO DAILY 12/02/16 12/26/17 Memantine [Namenda] 10 mg PO DAILY 12/02/16 12/26/17 Tolterodine [Detrol LA] 2 mg PO DAILY 12/02/16 12/26/17 Trimethoprim 100 mg PO DAILY 12/02/16 12/26/17 amLODIPine [Norvasc] 2.5 mg PO DAILY 12/02/16 12/26/17 Ranitidine HCl [Zantac] 300 mg PO DAILY 09/18/17 12/26/17 Vitamin D3 400 unit PO DAILY 12/26/17 12/26/17 Bisacodyl [Dulcolax] 10 mg ME DAILYP PRN 03/07/18 03/07/18 Docusate Sodium [Colace] 100 mg PO BID 03/07/18 03/07/18 Magnesium Hydroxide [Milk of 30 ml PO DAILYP PRN 03/07/18 03/07/18 Magnesia] Melatonin [Melatin] 3 mg PO HSP PRN 03/07/18 03/07/18 Spironolactone [Aldactone] 50 mg PO DAILY 03/07/18 03/07/18 Valsartan [Diovan] 80 mg PO DAILY 03/07/18 03/07/18 diphenhydrAMINE [Benadryl] 25 mg PO HSP PRN 03/07/18 03/07/18 Previous Rx's Medication Instructions Recorded Acetaminophen W/Codeine #3 1 tab PO TIDP PRN #30 tab 12/28/17 [Tylenol #3] Lidocaine [Lidoderm] 1 patch TOPICAL DAILY@1000 patch 12/28/17 fentaNYL [Fentanyl] 12 mcg TD Q72H #10 patch.td72 12/28/17 Allergies Allergy/AdvReac Type Severity Reaction Status Date / Time Sulfa (Sulfonamide AdvReac Intermediate Rash Verified 03/05/18 10:45 Antibiotics) Chest Pain PMH - Past Medical History [facility] Narrative: All Active Problems (Last Reviewed 12/21/17 @ 14:22 by Avi Weir PA-C) Hives (Acute) Allergic reaction (Acute) Fall (Acute) Hydrocephalus (Acute) Occipital scalp laceration (Acute) Neck pain, musculoskeletal (Acute) Atypical chest pain (Acute) Contusion, hip and thigh (Acute) Orthostatic hypotension (Acute) Hypertension (Chronic) Compression fracture of body of thoracic vertebra (Acute) Dementia (Chronic) Fall (Acute) Wrist sprain (Acute) Phalanx, distal fracture of finger (Acute) Contusion, hip (Acute) Bilateral hip pain (Acute) Chest wall pain (Acute) Thoracic back pain (Acute) Medical history: Reports: dementia, GERD, hypertension, thyroid disease, other ( urinary incontinence) Psychiatric history: Reports: depression Family history: Reports: no significant family history - Social History smoking status: Never smoker Alcohol use: Reports: None Drug use: Reports: none Physical Exam Limitations: altered mental status General appearance: alert, in no apparent distress Head: atraumatic, normocephalic Eye: Present: EOMI Neck: Present: trachea midline. Absent: lymphadenopathy, thyromegaly Chest: Present: symmetric chest wall rise, other (Rather market tenderness in the posterior lateral mid rib cage area. No obvious abrasion or redness.) Respiratory: Present: normal lung sounds bilaterally (Except for few scattered medium toned crackles in the bases bilaterally.). Absent: respiratory distress , wheezes, stridor, accessory muscle use, prolonged expiratory phase Cardiovascular: Present: regular rate, normal rhythm. Absent: systolic murmur, diastolic murmur Abdominal: Present: soft. Absent: distention, tenderness, guarding, rebound, rigidity, organomegaly, mass Extremities: Absent: pedal edema, pretibial edema, calf tenderness Neurological: Present: alert Patient oriented to: Present: person. Absent: place, time Speech: Present: fluid speech Cranial nerves: EOM function (II, III, IV, ): Normal Course Course Narrative: 6:45 PM Patient with low sodium and confusion with chest pain and falls. Falls are likely due to previous injuries but is at risk based on her age. Will do initial ACS workup. Vital Signs Temperature 98.1 F 03/07/18 18:38 Pulse Rate 85 03/07/18 18:38 Respiratory Rate 18 03/07/18 18:38 Blood Pressure 136/61 03/07/18 18:38 Pulse Oximetry (%) 93 03/07/18 18:38 Temperature 98.1 F 03/07/18 18:38 Pulse Rate 89 03/07/18 22:31 Respiratory Rate 18 03/07/18 18:38 Blood Pressure 183/114 03/07/18 22:31 Pulse Oximetry (%) 100 03/07/18 22:31 Chest Pain - Lab Data Result diagrams: 03/07/18 19:00 03/07/18 19:00 Lab Results 03/07/18 03/07/18 03/07/18 Range/Units 18:55 19:00 19:00 WBC 15.2 H (4.5-11.0) K/mcL RBC 4.11 (4.00-5.20) M/mcL Hgb 12.1 (12.0-15.0) g/dL Hct 36.0 (36.0-48.0) % MCV 87.6 (80.0-100.0) fL MCH 29.3 (26.0-34.0) pg MCHC 33.5 (31.0-36.0) g/dL RDW 13.9 (11.5-14.5) % Plt Count 506 H (140-440) K/mcL MPV 7.6 (7.4-10.4) fL Gran % 80.9 H (38.0-78.0) % Lymph % (Auto) 10.2 L (15.5-49.0) % [place] % (Auto) 6.9 (1.0-12.0) % Eos % (Auto) 1.7 (0.0-7.0) % Baso % (Auto) 0.3 (0.0-2.0) % Gran # 12.3 H (1.8-8.0) K/mcL Lymph # (Auto) 1.5 (1.5-4.8) K/mcL [place] # (Auto) 1.1 H (0.1-0.9) K/mcL Eos # (Auto) 0.3 (0.0-0.7) K/mcL Baso # (Auto) 0 (0.0-0.3) K/mcL Sodium 120 L (133-145) mmol/L Potassium 4.7 (3.3-5.1) mmol/L Chloride 86 L (96-108) mmol/L Carbon Dioxide 24 (22-30) mmol/L Anion Gap 10.0 (8-16) BUN 16 (8-23) mg/dl Creatinine 0.8 (0.6-1.1) mg/dl GFR Calculation 67 Glucose 134 H (70-105) mg/dL Calcium 9.8 (8.6-10.4) mg/dl Total Bilirubin 0.3 (0.0-1.0) mg/dL AST 15 (0-37) U/l ALT 19 (0-40) U/l Alkaline Phosphatase 110 (39-117) U/L Troponin T (0-0.03) ng/ml NT-Pro-B Natriuret Pep 54.2 (0-450) pg/ml Total Protein 7.4 (5.9-8.4) gm/dL Albumin 4.0 (3.2-5.2) gm/dL Globulin 3.4 (2.2-3.7) gm/dL Albumin/Globulin Ratio 1.2 (1.0-2.3) Urine Color Urine Appearance Urine pH (5.0-9.0) Ur Specific [place] (1.000-1.035) Urine Protein (NEG) mg/dL Urine Glucose (UA) (NEG) mg/dL Urine Ketones (NEG) mg/dL Urine Occult Blood (<0.03) mg/dL Urine Nitrate (NEG) Urine Bilirubin (NEG) mg/dL Urine Urobilinogen (NEG) mg/dL Ur Leukocyte Esterase (NEG) /uL Urine RBC (0-1) /hpf Urine WBC (0-4) /hpf Ur Squamous Epith Cells (0-4) /hpf Urine Bacteria (0) /hpf Urine Mucus (0) /hpf 03/07/18 03/07/18 Range/Units 19:00 20:30 WBC (4.5-11.0) K/mcL RBC (4.00-5.20) M/mcL Hgb (12.0-15.0) g/dL Hct (36.0-48.0) % MCV (80.0-100.0) fL MCH (26.0-34.0) pg MCHC (31.0-36.0) g/dL RDW (11.5-14.5) % Plt Count (140-440) K/mcL MPV (7.4-10.4) fL Gran % (38.0-78.0) % Lymph % (Auto) (15.5-49.0) % [place] % (Auto) (1.0-12.0) % Eos % (Auto) (0.0-7.0) % Baso % (Auto) (0.0-2.0) % Gran # (1.8-8.0) K/mcL Lymph # (Auto) (1.5-4.8) K/mcL [place] # (Auto) (0.1-0.9) K/mcL Eos # (Auto) (0.0-0.7) K/mcL Baso # (Auto) (0.0-0.3) K/mcL Sodium (133-145) mmol/L Potassium (3.3-5.1) mmol/L Chloride (96-108) mmol/L Carbon Dioxide (22-30) mmol/L Anion Gap (8-16) BUN (8-23) mg/dl Creatinine (0.6-1.1) mg/dl GFR Calculation Glucose (70-105) mg/dL Calcium (8.6-10.4) mg/dl Total Bilirubin (0.0-1.0) mg/dL AST (0-37) U/l ALT (0-40) U/l Alkaline Phosphatase (39-117) U/L Troponin T < 0.01 (0-0.03) ng/ml NT-Pro-B Natriuret Pep (0-450) pg/ml Total Protein (5.9-8.4) gm/dL Albumin (3.2-5.2) gm/dL Globulin (2.2-3.7) gm/dL Albumin/Globulin Ratio (1.0-2.3) Urine Color Yellow Urine Appearance Hazy Urine pH 7.0 (5.0-9.0) Ur Specific [place] 1.011 (1.000-1.035) Urine Protein Neg (NEG) mg/dL Urine Glucose (UA) Negative (NEG) mg/dL Urine Ketones Neg (NEG) mg/dL Urine Occult Blood Neg (<0.03) mg/dL Urine Nitrate Pos A (NEG) Urine Bilirubin Neg (NEG) mg/dL Urine Urobilinogen Neg (NEG) mg/dL Ur Leukocyte Esterase 500 A (NEG) /uL Urine RBC 1 (0-1) /hpf Urine WBC 116 H (0-4) /hpf Ur Squamous Epith Cells 1 (0-4) /hpf Urine Bacteria 0 (0) /hpf Urine Mucus Few (0) /hpf Disposition Pt seen by [facility]/PA only: No Clinical Impression: Falls frequently, Hyponatremia, Hydrocephalus, Abnormal ECG Chest pain Qualifiers: Chest pain type: other chest pain Qualified Code(s): R07.89 - Other chest pain ; R07.8 - Other chest pain Dementia Qualifiers: Dementia type: Alzheimer's disease Alzheimer's disease onset: late-onset Dementia behavioral disturbance: without behavioral disturbance Qualified Code(s ): G30.1 - Alzheimer's disease with late onset; F02.80 - Dementia in other diseases classified elsewhere without behavioral disturbance Leukocytosis (leucocytosis) Qualifiers: Leukocytosis type: leukemoid reaction Qualified Code(s): D72.823 - Leukemoid reaction UTI (urinary tract infection) Qualifiers: Urinary tract infection type: acute cystitis Hematuria presence: without hematuria Qualified Code(s): N30.00 - Acute cystitis without hematuria Summary: Patient's workup included her worsening of her hyponatremia, elevated white count at 15,000. Investigation further also of her previous hydrocephalus given that she has possible urinary symptoms with her being on tolterodine plus having dementia and the multiple falls suggesting normal pressure hydrocephalus. Urine demonstrates pyuria in spite of trimethoprim being in her chart as a daily medication. I discussed her case several times with Dr. Alford. Overall she is stable as far as her hydrocephalus compared to previous CTs and her new hyponatremia seems to be her major significant problem. This most likely was caused by her recent Spironolactone which was just very recently discontinued according to [facility]. A UTI with Jose may also sometimes cause some degree of this but this seems less likely. Her ECG seems to demonstrate an old inferior but old EKGs are not easily accessible at this point. BNP was normal as was troponin. Chest x-ray did not show infiltrates or effusion or signs of CHF. Dr. Alford kindly accepts care of this patient inpatient or observation. Disposition: Xfer As Inpt ([facility]) Condition: Fair Referrals: Shaye Noonan MD [Primary Care Provider] -
[2018-03-07] MEDS ORDERED: 0.9 % SODIUM CHLORIDE 1,000 ML IV ONE (19:11)
[2018-03-07 19:37] LABS: Basophils # (Auto) 0 K/mcL (0.0-0.3); Basophils % (Auto) 0.3 % (0.0-2.0); Eosinophils # (Auto) 0.3 K/mcL (0.0-0.7); Eosinophils % (Auto) 1.7 % (0.0-7.0); Granulocytes % (Auto) 80.9 % (38.0-78.0); Lymphocytes # (Auto) 1.5 K/mcL (1.5-4.8); Lymphocytes % (Auto) 10.2 % (15.5-49.0); Mean Cell Volume 87.6 fL (80.0-100.0); Mean Corpuscular HGB Conc 33.5 g/dL (31.0-36.0); Mean Corpuscular Hemoglobin 29.3 pg (26.0-34.0); Monocytes # (Auto) 1.1 K/mcL (0.1-0.9); Monocytes % (Auto) 6.9 % (1.0-12.0); Platelet Count 506 K/mcL (140-440); RBC 4.11 M/mcL (4.00-5.20); Red Cell Distribution Width 13.9 % (11.5-14.5)
[2018-03-07 20:02] LABS: ALT/SGPT 19 U/l (0-40); Albumin/Globulin Ratio 1.2 (1.0-2.3); Alkaline Phosphatase 110 U/L (39-117); Blood Urea Nitrogen 16 mg/dl (8-23)
[2018-03-07 21:31] LABS: proBNP 54.2 pg/ml (0-450)
--- NOTE | 2018-03-07 21:39 | Cat Scan Report ---
CLINICAL INFORMATION: Altered mental status COMPARISON: Brain CT scans dated 09/18/2017, 06/08/2017, 06/03/2017 TECHNIQUE: Axial noncontrast-enhanced images through the brain. FINDINGS: No acute intracranial hemorrhage. No subdural hematoma. No subarachnoid hemorrhage. No intra-axial hematoma. No new focal intra-axial attenuation abnormalities. No localized mass effect. No midline shift. Ventricles are enlarged but unchanged. There is periventricular white matter abnormality most consistent with small vessel ischemic change. Brainstem and cerebellum are negative. Basilar cisterns are normal. No hyperdense middle cerebral artery sign. No calvarial fracture. No lytic lesion. IMPRESSION: 1. Ventricular enlargement, unchanged since 2017 2. White matter abnormality consistent with small vessel ischemic change 3. No acute abnormality. No interval change since 06/03/2017 The exam was performed using radiation dose optimization techniques including, but not limited to, automated exposure control, adjustment of the mA and/or kV according to patient size and use of iterative reconstruction technique. Interpreted and Authenticated by: Oumar Walls 03/07/18
--- NOTE | 2018-03-07 21:44 | XRay Report ---
INDICATION: Chest pain TECHNIQUE: PA and lateral upright chest x-ray COMPARISON: Chest x-rays dated 12/23/2017, 08/16/2017, 02/11/2016. Thoracic MRI scan dated 12/24/2018 FINDINGS: Elevated right hemidiaphragm with interposed colon between the liver and diaphragm. Lungs are negative. No parenchymal infiltrate or mass. Heart size and vascularity are normal. No pulmonary edema. No pulmonary congestion. Kristel and mediastinum are negative. No pleural fluid. Patient has undergone previous kyphoplasty procedures. There is a T8 compression fracture which is unchanged since 12/24/2017. IMPRESSION: No acute abnormality. No interval change since 12/17/2017 Interpreted and Authenticated by: Oumar Walls 03/07/18
[2018-03-07 21:53] LABS: Appearance,Urine HAZY; Bacteria,Urine 0 /hpf (0); Bilirubin,Urine NEG (NEG); Color,Urine YELLOW; Glucose,Urine (UA) NEGATIVE (NEG); Leukocyte Esterase,Urine 500 /uL (NEG); Mucus,Urine FEW /hpf (0); Protein,Urine NEG (NEG); Specific Gravity,Urine 1.011 (1.000-1.035); Urine Blood NEG mg/dL (<0.03); Urine RBC 1 /hpf (0-1); Urine Squamous Epithelial Cell 1 /hpf (0-4); Urine WBC 116 /hpf (0-4); Urobilinogen,Urine NEG (NEG)
[2018-03-07] MEDS ORDERED: cefTRIAXone 1 GM VIAL IV ONE (22:19)
[2018-03-08] MEDS ORDERED: ACETAMINOPHEN W/CODEINE #3 1 TABLET PO ONE ×2 (00:13→04:17)
[2018-03-08] MEDS ORDERED: diphenhydrAMINE 25 MG CAPSULE PO ONE (00:13)
--- NOTE | 2018-03-08 00:51 | Internal Med History&Physical ---
Medical - H&P: [facility] Patient information: Note initiated : 03/08/18 at 12:51 am Service Date, if different from initiated Date: [] Patient: Fidelina Blackwell 87 y/o F admitted on for Chest Pain. Chief Complaint: [] Chief complaint: fall, pain, hyponatremia History of present illness: Ms. Blackwell is a 87 year old F history of dementia, hypertension, hypothyroidism, GERD, frequent falls, T8 compression fracture, and frequent UTI , has recently gone into [facility] from [place] (independence living) due to frequent falls and unsafe to be independent. Her primary care or on-call sent her in for evaluation after several falls in the past several days and finding her serum Na 122 and c/o then some off and on chest pains. The nurse at [facility] thought that the chest discomforts are most likely related to these falls. Preliminary evaluation and records reviewed by Dr. Ricketts (ER) show worsened sodium 120, UTI, leukocytosis (15 K) and CT evidence of hydrocephalus (since 05/2017) or enlarged ventricles, which appears enlarged but unchanged on repeat head CT. She apparently was on Aldactone recently, which was stopped yesterday. Because of her dementia and pains from recent falls, attempted orthostatic check fails. She (and her hyponatremia) is likely dehydrated from Aldactone, will observe her with gentle fluid replacement. ROS unobtainable: due to mental status All systems: reviewed and no additional remarkable complaints except as stated - Constitutional Constitutional: Present: frequent falls, weakness Additional comments: Right hip bruises - Neurological Neurological: Present: memory loss - Psychiatric Psychiatric: Present: memory loss Medical - H&P: [facility] Medical history: T8 compression fractures, enlarged ventricles (Hydrocephalus), Hypertension, frequent UTI, Hypothyroidism, Dementia, Depression, GERD, Frequent Falls. Surgical history: History of lumbar fusion and laminectomies Family history: reviewed and not pertinent Pertinent family history: Parents had diabetes, father had CVA Smoking status: Never smoker Drug use: none Alcohol use: none Medical - H&P: Meds Home Medications Medication Instructions Recorded Confirmed Type FLUoxetine HCL [Fluoxetine HCl] 40 mg PO DAILY 12/02/16 03/08/18 History Levothyroxine [Synthroid] 100 mcg PO QAMAC 12/02/16 03/08/18 History Losartan [Cozaar] 100 mg PO DAILY 12/02/16 03/08/18 History Memantine [Namenda] 10 mg PO DAILY 12/02/16 03/08/18 History Tolterodine [Detrol LA] 2 mg PO DAILY 12/02/16 03/08/18 History Trimethoprim 100 mg PO DAILY 12/02/16 03/08/18 History amLODIPine [Norvasc] 2.5 mg PO DAILY 12/02/16 03/08/18 History Ranitidine HCl [Zantac] 300 mg PO DAILY 09/18/17 03/08/18 History Vitamin D3 5,000 unit PO DAILY 12/26/17 03/08/18 History Acetaminophen W/Codeine #3 1 tab PO TIDP PRN #30 tab 12/28/17 03/08/18 Rx [Tylenol #3] fentaNYL [Fentanyl] 12 mcg TD Q72H #10 patch.td72 12/28/17 03/08/18 Rx Bisacodyl [Dulcolax] 10 mg MA DAILYP PRN 03/07/18 03/08/18 History Docusate Sodium [Colace] 100 mg PO BID 03/07/18 03/08/18 History Magnesium Hydroxide [Milk of 30 ml PO DAILYP PRN 03/07/18 03/08/18 History Magnesia] Melatonin [Melatin] 3 mg PO HSP PRN 03/07/18 03/08/18 History Spironolactone [Aldactone] 25 mg PO DAILY 03/07/18 03/08/18 History Valsartan [Diovan] 80 mg PO DAILY 03/07/18 03/08/18 History diphenhydrAMINE [Benadryl] 25 mg PO HSP PRN 03/07/18 03/08/18 History Lidocaine [Lidoderm] 1 patch TOPICAL DAILY 03/08/18 03/08/18 History Allergies Allergy/AdvReac Type Severity Reaction Status Date / Time Sulfa (Sulfonamide Allergy Intermediate Rash Verified 03/08/18 06:12 Antibiotics) Medical - H&P: Exam - Constitutional Vitals: Temp Pulse Resp BP Pulse Ox 98.1 F 99 H 18 139/107 96 03/07/18 18:38 03/07/18 23:55 03/07/18 18:38 03/07/18 23:31 03/07/18 23:55 General appearance: mild distress Exam: Small framed elderly with slight central obesity, distraught about her own poor memory - Head Head exam: Present: atraumatic, normocephalic - Eye Eye exam: Present: EOMI Pupils: Present: normal accommodation, PERRL - ENT ENT exam: Present: mucous membranes dry, normal oropharynx - Neck Neck exam: Present: full ROM. Absent: lymphadenopathy, meningismus - Respiratory Respiratory exam: Present: CTAB. Absent: accessory muscle use - Cardiovascular Cardiovascular exam: Present: RRR, +S1, +S2. Absent: gallop, JVD, rubs - GI/Abdominal GI/Abdominal exam: Present: normal bowel sounds, soft. Absent: guarding, rebound, tenderness - Extremities Exam Extremities exam: Present: normal capillary refill, tenderness. Absent: pedal edema Additional comments: Right trochanteric bursitis with bulging, bruises and tenderness, apparently due to a recent fall - Neurological Exam Neurological exam: Present: alert, CN II-XII intact, oriented X3 Additional comments: senile dementia and confusion at times - Skin Additional comments: Right trochanteric bursitis with bulging, bruises and tenderness, apparently due to a recent fall Medical - H&P: Reslt - Labs CBC & Chem 7: 03/09/18 04:05 03/09/18 04:05 Labs: Short CBC 03/07/18 Range/Units 19:00 WBC 15.2 H (4.5-11.0) K/mcL Hgb 12.1 (12.0-15.0) g/dL Hct 36.0 (36.0-48.0) % Plt Count 506 H (140-440) K/mcL BMP 03/07/18 19:00 Sodium 120 L Potassium 4.7 Chloride 86 L Carbon Dioxide 24 BUN 16 Creatinine 0.8 Glucose 134 H Calcium 9.8 Cardiac Enzymes 03/07/18 Range/Units 19:00 Troponin T < 0.01 (0-0.03) ng/ml Liver Function 03/07/18 Range/Units 19:00 Total Bilirubin 0.3 (0.0-1.0) mg/dL AST 15 (0-37) U/l ALT 19 (0-40) U/l Alkaline Phosphatase 110 (39-117) U/L Albumin 4.0 (3.2-5.2) gm/dL Urine 03/07/18 Range/Units 20:30 Urine Color Yellow Urine Appearance Hazy Urine pH 7.0 (5.0-9.0) Ur Specific [place] 1.011 (1.000-1.035) Urine Protein Neg (NEG) mg/dL Urine Glucose (UA) Negative (NEG) mg/dL - EKG Data EKG shows normal: sinus rhythm - EKG Data Prior EKG available for review: no (evidence of old inferior infarct) - Imaging and Cardiology CT scan - head Additional comments: IMPRESSION: 1. Ventricular enlargement, unchanged since 2017 2. White matter abnormality consistent with small vessel ischemic change 3. No acute abnormality. No interval change since 06/03/2017 Interpreted and Authenticated by: Oumar Walls 03/07/18 Chest x-ray Additional comments: IMPRESSION: XR chest 2V No acute abnormality. No interval change since 12/17/2017 Interpreted and Authenticated by: Oumar Walls 03/07/18 36 36 Key Carrier: <Electronically signed by Oumar Walls M.D. in [place]> 05/17 Medical - H&P: A/P (1) Hyponatremia Current visit: Yes Status: Acute Unknown volume status, unknown cardiac and kidney function, clinically looks a little bit dry. Her EKG showed evidence of prior cardiac events, she might be on Aldactone for cardiac hypertension. 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 will check thyroid function studies status, adrenal functions, renal functions, and multi-pharmacy review We'll hold diuretic for now, and hold her antihypertensive medications, trimethoprim (2) UTI (urinary tract infection) Current visit: Yes Status: Acute urine cultures, then Rocephin IV antibiotics (3) Leukocytosis (leucocytosis) Current visit: Yes Status: Acute Blood culture 2, Rocephin IV antibiotics (4) Hydrocephalus Current visit: Yes Status: Acute Repeat head CT showed enlarged ventricles, but no change from 2017, Clinically she appears stable and neurologically intact, Will defer hydrocephalus workup to outpatient with her PCP. 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
[2018-03-08] MEDS ORDERED: NALOXONE HCL 0.4 MG/ML VIAL IV PRN (01:56)
[2018-03-08] MEDS ORDERED: cefTRIAXone 1 GM in DEXTROSE 5% IN WATER 50 ML IV SCH (01:56)
[2018-03-08] MEDS ORDERED: ONDANSETRON 4 MG/2 ML VIAL IV PRN (01:56)
[2018-03-08 01:59] LABS: Uric Acid,Urine Random 23.6 mg/dL
[2018-03-08] MEDS: 0.45 % SODIUM CHLORIDE 1,000 ML IV SCH ×2 (02:00→16:04)
[2018-03-08 02:58] LABS: Basophils # (Auto) 0 K/mcL (0.0-0.3); Basophils % (Auto) 0.3 % (0.0-2.0); Eosinophils # (Auto) 0.2 K/mcL (0.0-0.7); Eosinophils % (Auto) 1.4 % (0.0-7.0); Granulocytes % (Auto) 84.1 % (38.0-78.0); Lymphocytes # (Auto) 1.2 K/mcL (1.5-4.8); Lymphocytes % (Auto) 7.9 % (15.5-49.0); Mean Cell Volume 89.2 fL (80.0-100.0); Mean Corpuscular Hemoglobin 29.5 pg (26.0-34.0); Monocytes % (Auto) 6.3 % (1.0-12.0); Platelet Count 445 K/mcL (140-440); RBC 3.65 M/mcL (4.00-5.20); Red Cell Distribution Width 13.8 % (11.5-14.5)
[2018-03-08 03:17] LABS: Blood Urea Nitrogen 15 mg/dl (8-23)
[2018-03-08] MEDS ORDERED: HALOPERIDOL LACTATE 5 MG/ML VIAL ONE (05:04)
[2018-03-08] MEDS: 0.9 % SODIUM CHLORIDE 10 ML SYRINGE IV SCH ×4 (06:21→23:19)
[2018-03-08] MEDS ORDERED: HALOPERIDOL LACTATE 5 MG/ML VIAL IV PRN (06:23)
[2018-03-08] MEDS: DOCUSATE SODIUM 100 MG CAPSULE PO SCH ×2 (09:00→20:14)
[2018-03-08 09:18] LABS: Blood Urea Nitrogen 13 mg/dl (8-23)
[2018-03-08 12:42] LABS: Appearance,Urine CLEAR; Bacteria,Urine FEW /hpf (0); Bilirubin,Urine NEG (NEG); Color,Urine STRAW; Glucose,Urine (UA) NEGATIVE (NEG); Leukocyte Esterase,Urine 250 /uL (NEG); Mucus,Urine FEW /hpf (0); Protein,Urine NEG (NEG); Specific Gravity,Urine 1.012 (1.000-1.035); Urine Blood NEG mg/dL (<0.03); Urine RBC 2 /hpf (0-1); Urine Squamous Epithelial Cell 1 /hpf (0-4); Urine WBC 13 /hpf (0-4); Urobilinogen,Urine NEG (NEG)
[2018-03-08] MEDS: ACETAMINOPHEN W/CODEINE #3 1 TABLET PO PRN ×2 (16:04→23:36)
[2018-03-08] MEDS: cefTRIAXone 1 GM VIAL IV SCH (16:04)
[2018-03-08 16:42] LABS: Blood Urea Nitrogen 13 mg/dl (8-23)
[2018-03-08 21:37] LABS: ALT/SGPT 15 U/l (0-40); Albumin 3.5 gm/dL (3.2-5.2); Albumin/Globulin Ratio 1.1 (1.0-2.3); Alkaline Phosphatase 90 U/L (39-117); Blood Urea Nitrogen 14 mg/dl (8-23); Uric Acid 2.4 mg/dL (2.5-8.0)
[2018-03-08] MEDS ORDERED: ACETAMINOPHEN W/CODEINE #3 1 TABLET PO PRN (22:56)
[2018-03-09] MEDS: 0.9 % SODIUM CHLORIDE 10 ML SYRINGE IV SCH ×3 (05:21→21:07)
[2018-03-09 05:32] LABS: Basophils # (Auto) 0 K/mcL (0.0-0.3); Basophils % (Auto) 0.3 % (0.0-2.0); Eosinophils # (Auto) 0.2 K/mcL (0.0-0.7); Eosinophils % (Auto) 1.8 % (0.0-7.0); Lymphocytes # (Auto) 1.7 K/mcL (1.5-4.8); Lymphocytes % (Auto) 12.9 % (15.5-49.0); Mean Cell Volume 88.3 fL (80.0-100.0); Mean Corpuscular HGB Conc 33.9 g/dL (31.0-36.0); Mean Corpuscular Hemoglobin 29.9 pg (26.0-34.0); Monocytes # (Auto) 0.8 K/mcL (0.1-0.9); Platelet Count 473 K/mcL (140-440); Red Cell Distribution Width 14.1 % (11.5-14.5)
[2018-03-09 05:48] LABS: Blood Urea Nitrogen 10 mg/dl (8-23)
[2018-03-09] MEDS: amLODIPine 5 MG TABLET PO SCH ×2 (06:52→09:33)
[2018-03-09 07:19] LABS: proBNP 71.8 pg/ml (0-450)
[2018-03-09 07:27] LABS: Cortisol,AM 13.9 ug/dl (6.2-19.4)
[2018-03-09] MEDS: LEVOTHYROXINE 100 MCG TABLET PO SCH (07:38)
[2018-03-09] MEDS ORDERED: NON FORMULARY MEDICATION 1 DOSE MISCELL (Ranitidine Hcl [Zantac] 300 MG) PO SCH (09:00)
[2018-03-09] MEDS: DOCUSATE SODIUM 100 MG CAPSULE PO SCH ×2 (09:18→20:47)
[2018-03-09] MEDS: FLUoxetine HCL 20 MG CAPSULE PO SCH (09:19)
[2018-03-09] MEDS: MEMANTINE 10 MG TABLET PO SCH (09:19)
[2018-03-09] MEDS: TOLTERODINE 2 MG CAP.XL.24H PO SCH (09:19)
[2018-03-09] MEDS: VITAMIN D3 400 UNIT TABLET PO SCH (09:34)
[2018-03-09] MEDS: cefTRIAXone 1 GM VIAL IV SCH (09:37)
[2018-03-09] MEDS: LIDOCAINE PATCH TOPICAL SCH ×2 (10:14→22:02)
--- NOTE | 2018-03-09 20:19 | Internal Med Progress Note ---
Medical - PN: Subj Patient information: Note initiated : 03/09/18 at 8:19 pm Service Date, if different from initiated Date: [] Patient: Fidelina Blackwell 87 y/o F admitted on 03/08/18 for Chest Pain/ Hyponatremia. Chief Complaint: [] Interval history: 87 year old F history of dementia, hypertension, hypothyroidism, GERD, frequent falls, T8 compression fracture, and frequent UTI, has recently gone into [facility] from [place] (independence living) due to frequent falls and unsafe to be independent. Her primary care or on-call sent her in for evaluation after several falls in the past several days and finding her serum Na 122 and c/o then some off and on chest pains. The nurse at [facility] thought that the chest discomforts are most likely related to these falls. Preliminary evaluation and records reviewed by Dr. Ricketts (ER) show worsened sodium 120, UTI, leukocytosis (15 K) and CT evidence of hydrocephalus (since 2016) or enlarged ventricles, which appears enlarged but unchanged on repeat head CT. She apparently was on Aldactone recently, which was stopped yesterday. Because of her dementia and pains from recent falls, attempted orthostatic check fails. She (and her hyponatremia) is likely dehydrated from Aldactone, will observe her with gentle fluid replacement. 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 Sodium fluctuated but now up to 124 today. Resume Norvas for antihypertensive medication, recheck orthostatic, cortisol, BN peptide, serial BMP, physical therapy, pain control. - Constitutional Vitals: Vital Signs Temp Pulse Resp BP Pulse Ox 98.7 F 88 20 147/73 97 03/09/18 19:27 03/09/18 19:27 03/09/18 19:27 03/09/18 19:27 03/09/18 19:27 Period Temp Pulse Resp BP Sys/Bacon Pulse Ox Last 24 Hr 97.3 F-98.7 F 81-94 14-22 104-179/64-80 94-97 Intake and Output 03/09/18 03/09/18 03/09/18 05:59 13:59 21:59 Intake Total 120 / 120 400 / 400 80 / 80 Output Total 501 / 501 350 / 350 Balance -381 / -381 400 / 400 -270 / -270 Weight 131 lb 126 lb Patient Weight 03/10/18 05:59 Weight 126 lb Intake & Output: Intake & Output 03/09/18 03/09/18 03/09/18 05:59 13:59 21:59 Intake Total 120 / 120 400 / 400 80 / 80 Output Total 501 / 501 350 / 350 Balance -381 / -381 400 / 400 -270 / -270 Weight 131 lb 126 lb Intake: Oral 120 / 120 400 / 400 80 / 80 Output: Void Amount 500 / 500 350 / 350 # of times incontinent of urine Other: Meal Dinner Percent of Meal Consumed 100% Feeding Ability Independent Stool Size Moderate Small Stool Color Brown Brown Stool Consistency Soft Soft Formed Watery # Voids 1 # Bowel Movements 1 1 # Emeses 0 - Head Additional comments: Now have developed bruises on the right forehead - Eye Eye exam: Present: EOMI Pupils: Present: normal accommodation, PERRL - ENT ENT exam: Present: mucous membranes moist - Neck Neck exam: Absent: lymphadenopathy, meningismus - Respiratory Respiratory exam: Present: CTAB. Absent: accessory muscle use - Cardiovascular Cardiovascular exam: Present: RRR, +S1, +S2. Absent: gallop, rubs - GI/Abdominal GI/Abdominal exam: Present: normal bowel sounds. Absent: guarding, rebound, tenderness - Extremities Exam Extremities exam: Present: normal capillary refill. Absent: pedal edema - Neurological Exam Neurological exam: Present: altered, CN II-XII intact, oriented X3 Additional comments: senile dementia and confusion at times - Skin Additional comments: Right trochanteric bursitis with bulging, bruises and tenderness, apparently due to a recent fall Medical - PN: Obj Da - Labs CBC & Chem 7: 03/10/18 04:05 03/10/18 04:05 Labs: Abnormal Lab Results 03/09/18 03/09/18 03/08/18 04:05 04:05 20:33 WBC 13.1 H RBC 3.80 L Hgb 11.4 L Hct 33.5 L Plt Count 473 H Gran % 79.0 H Lymph % (Auto) 12.9 L Gran # 10.4 H Lymph # (Auto) Garvin # (Auto) ESR Sodium 124 L 124 L Chloride 87 L 88 L Glucose Uric Acid 2.4 L Urine Nitrate Ur Leukocyte Esterase Urine RBC Urine WBC Urine Bacteria 03/08/18 03/08/18 03/08/18 14:07 11:52 07:57 WBC RBC Hgb Hct Plt Count Gran % Lymph % (Auto) Gran # Lymph # (Auto) Garvin # (Auto) ESR Sodium 128 L 130 L Chloride 91 L 92 L Glucose 115 H Uric Acid Urine Nitrate Ur Leukocyte Esterase 250 A Urine RBC 2 H Urine WBC 13 H Urine Bacteria Few A 03/08/18 03/08/18 03/08/18 02:30 02:30 02:30 WBC 15.6 H RBC 3.65 L Hgb 10.8 L Hct 32.6 L Plt Count 445 H Gran % 84.1 H Lymph % (Auto) 7.9 L Gran # 13.1 H Lymph # (Auto) 1.2 L Garvin # (Auto) 1.0 H ESR 48 H Sodium 123 L Chloride 88 L Glucose 167 H Uric Acid Urine Nitrate Ur Leukocyte Esterase Urine RBC Urine WBC Urine Bacteria 03/07/18 03/07/18 03/07/18 20:30 19:00 19:00 WBC 15.2 H RBC Hgb Hct Plt Count 506 H Gran % 80.9 H Lymph % (Auto) 10.2 L Gran # 12.3 H Lymph # (Auto) Garvin # (Auto) 1.1 H ESR Sodium 120 L Chloride 86 L Glucose 134 H Uric Acid Urine Nitrate Pos A Ur Leukocyte Esterase 500 A Urine RBC Urine WBC 116 H Urine Bacteria Meds: Medications Acetaminophen (Tylenol) 650 mg PO Q6HP PRN PRN Reason: PAIN/FEVER > 101 Acetaminophen/Codeine Phosphate (Tylenol #3) 1 tab PO Q6HP PRN PRN Reason: PAIN LEVEL 3-6 Last Admin: 03/08/18 23:36 Dose: 1 tab Acetaminophen/Codeine Phosphate (Tylenol #3) 1 tab PO TIDP PRN PRN Reason: Pain Amlodipine Besylate (Norvasc) 2.5 mg PO DAILY [facility] Last Admin: 03/09/18 09:33 Dose: Not Given Ceftriaxone Sodium (Rocephin) 1 gm IV Q24H [facility] Last Admin: 03/09/18 09:37 Dose: 1 gm Docusate Sodium (Colace) 100 mg PO BID [facility] Last Admin: 03/09/18 09:18 Dose: 100 mg Famotidine (Pepcid) 40 mg PO HS [facility] Fluoxetine HCl (Prozac) 40 mg PO DAILY [facility] Last Admin: 03/09/18 09:19 Dose: 40 mg Levothyroxine Sodium (Synthroid) 100 mcg PO QAMAC [facility] Last Admin: 03/09/18 07:38 Dose: 100 mcg Lidocaine (Lidoderm) 1 patch TOPICAL DAILY@1000 [facility] Last Admin: 03/09/18 10:14 Dose: 1 patch Lidocaine (Lidoderm) 0 patch TOPICAL HS@2200 [facility] Memantine (Namenda) 10 mg PO DAILY [facility] Last Admin: 03/09/18 09:19 Dose: 10 mg Naloxone HCl (Narcan) 0.1 mg IV Q2MIN PRN PRN Reason: Opiate Reversal Ondansetron HCl (Zofran) 4 mg IV Q6HP PRN PRN Reason: Nausea And Vomiting Sodium Chloride (Saline Flush) 10 ml IV Q8 [facility] Last Admin: 03/09/18 13:56 Dose: 10 ml Tolterodine Tartrate (Detrol La) 2 mg PO DAILY [facility] Last Admin: 03/09/18 09:19 Dose: 2 mg Vitamin D (Vitamin D3) 5,000 unit PO DAILY [facility] Last Admin: 03/09/18 09:34 Dose: Not Given Medical - PN: A/P - Time Spent With Patient Total time spent is greater than 50% in coordination of care (as documented) at patient's floor/unit and/or counseling patient: Greater than 35 minutes (1) Hyponatremia Status: Acute Assessment and plan: Continue fluid restriction, serial labs to monitor sodium, pain control, physical therapy, hopefully placement back to [facility] assisted living/SNF in couple days. Current Visit: Yes (2) UTI (urinary tract infection) Status: Acute Assessment and plan: Continue Rocephin IV, awaiting for urine culture results Current Visit: Yes (3) Leukocytosis (leucocytosis) Status: Acute Assessment and plan: WBC down to 13.1 K (from 15.6 K), on IV Rocephin for UTI, pending urine culture and sensitivity. Current Visit: Yes (4) Contusion, hip Status: Acute Assessment and plan: Right hip lateral trochanteric bursitis from recent fall. Pain control with topical Lidoderm, and [place] as needed for breakthrough pain. Current Visit: Yes (5) Hydrocephalus Status: Acute Assessment and plan: Appears stable, will defer outpatient workup with her PCP Current Visit: Yes (6) Dementia Status: Chronic Assessment and plan: Occasional nighttime confusion, otherwise pleasant with poor memory most of the time. Current Visit: Yes (7) Abnormal ECG Status: Acute Assessment and plan: Likely had silent cardiac event in the past Current Visit: Yes (8) Falls frequently Status: Acute Assessment and plan: She likely will need SNF placement Current Visit: Yes Medical - PN: Qual - VTE Deep Vein Thrombosis/Pulmonary Embolism Present on Admission: No
[2018-03-09] MEDS: ACETAMINOPHEN W/CODEINE #3 1 TABLET PO PRN (20:47)
[2018-03-09] MEDS: FAMOTIDINE 20 MG TABLET PO SCH (20:49)
[2018-03-09 22:07] LABS: Blood Urea Nitrogen 16 mg/dl (8-23)
[2018-03-10] MEDS: 0.9 % SODIUM CHLORIDE 10 ML SYRINGE IV SCH ×3 (04:48→22:30)
[2018-03-10 06:14] LABS: Basophils # (Auto) 0 K/mcL (0.0-0.3); Basophils % (Auto) 0.2 % (0.0-2.0); Eosinophils # (Auto) 0.2 K/mcL (0.0-0.7); Eosinophils % (Auto) 1.5 % (0.0-7.0); Granulocytes % (Auto) 76.3 % (38.0-78.0); Lymphocytes # (Auto) 1.8 K/mcL (1.5-4.8); Lymphocytes % (Auto) 14.5 % (15.5-49.0); Mean Cell Volume 87.9 fL (80.0-100.0); Mean Corpuscular Hemoglobin 29.8 pg (26.0-34.0); Monocytes # (Auto) 0.9 K/mcL (0.1-0.9); Monocytes % (Auto) 7.5 % (1.0-12.0); Platelet Count 469 K/mcL (140-440); RBC 3.73 M/mcL (4.00-5.20); Red Cell Distribution Width 14.1 % (11.5-14.5)
[2018-03-10 06:44] LABS: Blood Urea Nitrogen 12 mg/dl (8-23)
[2018-03-10] MEDS: LEVOTHYROXINE 100 MCG TABLET PO SCH (06:48)
[2018-03-10] MEDS: amLODIPine 5 MG TABLET PO SCH (08:07)
[2018-03-10] MEDS: DOCUSATE SODIUM 100 MG CAPSULE PO SCH ×2 (08:07→20:49)
[2018-03-10] MEDS: FLUoxetine HCL 20 MG CAPSULE PO SCH (08:08)
[2018-03-10] MEDS: MEMANTINE 10 MG TABLET PO SCH (08:08)
[2018-03-10] MEDS: cefTRIAXone 1 GM VIAL IV SCH (08:09)
[2018-03-10] MEDS: VITAMIN D3 400 UNIT TABLET PO SCH (08:10)
[2018-03-10] MEDS: ACETAMINOPHEN W/CODEINE #3 1 TABLET PO PRN (08:31)
[2018-03-10] MEDS: LIDOCAINE PATCH TOPICAL SCH ×2 (10:24→22:30)
--- NOTE | 2018-03-10 10:57 | Internal Med Progress Note ---
Medical - PN: Subj Patient information: Note initiated : 03/10/18 at 10:55 am Service Date, if different from initiated Date: [] Patient: Fidelina Blackwell 87 y/o F admitted on 03/08/18 for Chest Pain/ Hyponatremia. Chief Complaint: [] Interval history: 87 year old F history of dementia, hypertension, hypothyroidism, GERD, frequent falls, T8 compression fracture, and frequent UTI, has recently gone into [facility] from [place] (independence living) due to frequent falls and unsafe to be independent. Her primary care or on-call sent her in for evaluation after several falls in the past several days and finding her serum Na 122 and c/o some off and on pleuritic chest pains. The nurse at [facility] thought that the chest discomforts are most likely related to these falls. Preliminary evaluation and records reviewed by Dr. Ricketts (ER) show worsened sodium 120, UTI, leukocytosis (15 K) and CT evidence of hydrocephalus ( since 05/2017) or enlarged ventricles, which appears enlarged unchanged on repeat head CT. She apparently was on Aldactone recently, which was stopped yesterday. Because of her dementia and pains from recent falls, attempted orthostatic check fails. 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 Sodium fluctuated 03/08 to 130 but now 124[address] [facility] for antihypertensive medication, recheck orthostatic, cortisol, BN peptide, serial BMP, physical therapy, pain control. 03/10/2018 Had nighttime confusion, UTI on Rocephin. Sodium up to 126, WBC decreased to 12 k, blood pressure is high again, likely secondary to confusion or agitation. Urine culture with coag negative staph so far, pending sensitivity panel. Continue fluid restriction titrate or add antihypertensive. - Constitutional Vitals: Vital Signs Temp Pulse Resp BP Pulse Ox 99 F 82 16 155/73 94 03/10/18 06:56 03/10/18 06:56 03/10/18 06:56 03/10/18 09:00 03/10/18 06:56 Period Temp Pulse Resp BP Sys/Bacon Pulse Ox Last 24 Hr 97.6 F-99 F 80-94 14-20 109-168/63-82 94-97 Intake and Output 03/09/18 03/10/18 03/10/18 21:59 05:59 13:59 Intake Total 80 / 80 360 / 360 30 / 30 Output Total 475 / 475 475 / 475 110 / 110 Balance -395 / -395 -115 / -115 -80 / -80 Weight 126 lb Intake & Output: Intake & Output 03/09/18 03/10/18 03/10/18 21:59 05:59 13:59 Intake Total 80 / 80 360 / 360 30 / 30 Output Total 475 / 475 475 / 475 110 / 110 Balance -395 / -395 -115 / -115 -80 / -80 Weight 126 lb Intake: Oral 80 / 80 360 / 360 IV - Manual Only 30 Output: Void Amount 475 / 475 475 / 475 110 / 110 Other: Meal Dinner Breakfast Percent of Meal Consumed 100% 75% Feeding Ability Independent Independent Stool Size Moderate Moderate Stool Color Brown Brown Stool Consistency Soft Formed Formed # Voids 1 2 # Bowel Movements 1 1 General appearance: no acute distress - Head Additional comments: bruises on the right forehead - Eye Eye exam: Present: EOMI Pupils: Present: normal accommodation, PERRL - ENT ENT exam: Present: mucous membranes moist - Neck Neck exam: Absent: lymphadenopathy, meningismus - Respiratory Respiratory exam: Present: CTAB. Absent: accessory muscle use - Cardiovascular Cardiovascular exam: Present: +S1, +S2. Absent: gallop, rubs - GI/Abdominal GI/Abdominal exam: Present: normal bowel sounds, soft. Absent: guarding, rebound - Extremities Exam Extremities exam: Absent: pedal edema Additional comments: Right trochanteric bursitis with bulging, bruises and tenderness, due to a recent fall - Neurological Exam Neurological exam: Present: alert, CN II-XII intact Additional comments: senile dementia and confusion at times Medical - PN: Obj Da - Labs CBC & Chem 7: 03/10/18 04:05 03/10/18 04:05 Labs: Abnormal Lab Results 03/10/18 03/10/18 03/09/18 04:05 04:05 20:42 WBC 12.2 H RBC 3.73 L Hgb 11.1 L Hct 32.8 L Plt Count 469 H Gran % Lymph % (Auto) 14.5 L Gran # 9.3 H Lymph # (Auto) [place] # (Auto) ESR Sodium 126 L 122 L Chloride 89 L 88 L Glucose Uric Acid Urine Nitrate Ur Leukocyte Esterase Urine RBC Urine WBC Urine Bacteria 03/09/18 03/09/18 03/08/18 04:05 04:05 20:33 WBC 13.1 H RBC 3.80 L Hgb 11.4 L Hct 33.5 L Plt Count 473 H Gran % 79.0 H Lymph % (Auto) 12.9 L Gran # 10.4 H Lymph # (Auto) [place] # (Auto) ESR Sodium 124 L 124 L Chloride 87 L 88 L Glucose Uric Acid 2.4 L Urine Nitrate Ur Leukocyte Esterase Urine RBC Urine WBC Urine Bacteria 03/08/18 03/08/18 03/08/18 14:07 11:52 07:57 WBC RBC Hgb Hct Plt Count Gran % Lymph % (Auto) Gran # Lymph # (Auto) [place] # (Auto) ESR Sodium 128 L 130 L Chloride 91 L 92 L Glucose 115 H Uric Acid Urine Nitrate Ur Leukocyte Esterase 250 A Urine RBC 2 H Urine WBC 13 H Urine Bacteria Few A 03/08/18 03/08/18 03/08/18 02:30 02:30 02:30 WBC 15.6 H RBC 3.65 L Hgb 10.8 L Hct 32.6 L Plt Count 445 H Gran % 84.1 H Lymph % (Auto) 7.9 L Gran # 13.1 H Lymph # (Auto) 1.2 L [place] # (Auto) 1.0 H ESR 48 H Sodium 123 L Chloride 88 L Glucose 167 H Uric Acid Urine Nitrate Ur Leukocyte Esterase Urine RBC Urine WBC Urine Bacteria 03/07/18 03/07/18 03/07/18 20:30 19:00 19:00 WBC 15.2 H RBC Hgb Hct Plt Count 506 H Gran % 80.9 H Lymph % (Auto) 10.2 L Gran # 12.3 H Lymph # (Auto) [place] # (Auto) 1.1 H ESR Sodium 120 L Chloride 86 L Glucose 134 H Uric Acid Urine Nitrate Pos A Ur Leukocyte Esterase 500 A Urine RBC Urine WBC 116 H Urine Bacteria Meds: Medications Acetaminophen (Tylenol) 650 mg PO Q6HP PRN PRN Reason: PAIN/FEVER > 101 Acetaminophen/Codeine Phosphate (Tylenol #3) 1 tab PO Q6HP PRN PRN Reason: PAIN LEVEL 3-6 Last Admin: 03/10/18 08:31 Dose: 1 tab Acetaminophen/Codeine Phosphate (Tylenol #3) 1 tab PO TIDP PRN PRN Reason: Pain Amlodipine Besylate (Norvasc) 2.5 mg PO DAILY [facility] Last Admin: 03/10/18 08:07 Dose: 2.5 mg Ceftriaxone Sodium (Rocephin) 1 gm IV Q24H [facility] Last Admin: 03/10/18 08:09 Dose: 1 gm Docusate Sodium (Colace) 100 mg PO BID [facility] Last Admin: 03/10/18 08:07 Dose: 100 mg Famotidine (Pepcid) 40 mg PO HS [facility] Last Admin: 03/09/18 20:49 Dose: 40 mg Fluoxetine HCl (Prozac) 40 mg PO DAILY [facility] Last Admin: 03/10/18 08:08 Dose: 40 mg Levothyroxine Sodium (Synthroid) 100 mcg PO QAMAC [facility] Last Admin: 03/10/18 06:48 Dose: 100 mcg Lidocaine (Lidoderm) 1 patch TOPICAL DAILY@1000 [facility] Last Admin: 03/10/18 10:24 Dose: 1 patch Lidocaine (Lidoderm) 0 patch TOPICAL HS@2200 [facility] Last Admin: 03/09/18 22:02 Dose: 1 patch Memantine (Namenda) 10 mg PO DAILY [facility] Last Admin: 03/10/18 08:08 Dose: 10 mg Naloxone HCl (Narcan) 0.1 mg IV Q2MIN PRN PRN Reason: Opiate Reversal Ondansetron HCl (Zofran) 4 mg IV Q6HP PRN PRN Reason: Nausea And Vomiting Sodium Chloride (Saline Flush) 10 ml IV Q8 [facility] Last Admin: 03/10/18 04:48 Dose: 10 ml Tolterodine Tartrate (Detrol La) 2 mg PO DAILY [facility] Last Admin: 03/09/18 09:19 Dose: 2 mg Vitamin D (Vitamin D3) 5,000 unit PO DAILY [facility] Last Admin: 03/10/18 08:10 Dose: Not Given Medical - PN: A/P - Time Spent With Patient Total time spent is greater than 50% in coordination of care (as documented) at patient's floor/unit and/or counseling patient: 25 - 35 minutes (1) Hyponatremia Status: Acute Assessment and plan: As above, continue fluid restriction, monitor progressing improvement on sodium. Current Visit: Yes (2) UTI (urinary tract infection) Status: Acute Assessment and plan: Coag negative staph on preliminary urine culture results, change Rocephin to cefazolin Current Visit: Yes (3) Leukocytosis (leucocytosis) Status: Acute Assessment and plan: WBC down to 12.2K from 13.1 K (from 15.6 K), on IV Rocephin for UTI, gram- negative staph on preliminary urine culture, pending sensitivity. Current Visit: Yes (4) Contusion, hip Status: Acute Assessment and plan: Right hip lateral trochanteric bursitis from recent fall. Pain control with topical Lidoderm, and [place] as needed for breakthrough pain. Current Visit: Yes (5) Hydrocephalus Status: Acute Assessment and plan: Appears stable, will defer outpatient workup with her PCP Current Visit: Yes (6) Dementia Status: Chronic Assessment and plan: Occasional nighttime confusion, otherwise pleasant with poor memory most of the time. Current Visit: Yes (7) Abnormal ECG Status: Acute Assessment and plan: Likely had silent cardiac event in the past Current Visit: Yes (8) Falls frequently Status: Acute Assessment and plan: Back to [facility] soon, with PT OT Current Visit: Yes Medical - PN: Qual - VTE Deep Vein Thrombosis/Pulmonary Embolism Present on Admission: No
[2018-03-10] MEDS: TOLTERODINE 2 MG CAP.XL.24H PO SCH (12:52)
[2018-03-10] MEDS: FAMOTIDINE 20 MG TABLET PO SCH (20:49)
[2018-03-10] MEDS ORDERED: ceFAZolin 1 GM VIAL IV SCH (22:00)
[2018-03-10] MEDS ORDERED: ceFAZolin 1 GM VIAL ONE (22:24)
[2018-03-11] MEDS: ACETAMINOPHEN 325 MG TABLET PO PRN (02:32)
[2018-03-11] MEDS ORDERED: cloNIDine HCL 0.1 MG TABLET PO SCH (04:00)
[2018-03-11] MEDS ORDERED: cloNIDine HCL 0.1 MG TABLET ONE (04:08)
[2018-03-11] MEDS: 0.9 % SODIUM CHLORIDE 10 ML SYRINGE IV SCH ×3 (06:08→23:00)
[2018-03-11 06:33] LABS: Basophils # (Auto) 0.1 K/mcL (0.0-0.3); Basophils % (Auto) 0.4 % (0.0-2.0); Eosinophils # (Auto) 0.3 K/mcL (0.0-0.7); Eosinophils % (Auto) 1.9 % (0.0-7.0); Granulocytes % (Auto) 77.6 % (38.0-78.0); Lymphocytes # (Auto) 1.9 K/mcL (1.5-4.8); Mean Cell Volume 88.8 fL (80.0-100.0); Mean Corpuscular HGB Conc 33.5 g/dL (31.0-36.0); Mean Corpuscular Hemoglobin 29.8 pg (26.0-34.0); Monocytes # (Auto) 1.1 K/mcL (0.1-0.9); Monocytes % (Auto) 7.1 % (1.0-12.0); Platelet Count 490 K/mcL (140-440); RBC 3.89 M/mcL (4.00-5.20); Red Cell Distribution Width 13.8 % (11.5-14.5)
[2018-03-11 06:40] LABS: Blood Urea Nitrogen 14 mg/dl (8-23)
--- NOTE | 2018-03-11 06:53 | Internal Med Progress Note ---
Medical - PN: Subj Patient information: Note initiated : 03/11/18 at 6:52 am Service Date, if different from initiated Date: [] Patient: Fidelina Blackwell 87 y/o F admitted on 03/08/18 for Chest Pain/ Hyponatremia. Chief Complaint: [] Interval history: 87 year old F history of dementia, hypertension, hypothyroidism, GERD, frequent falls, T8 compression fracture, and frequent UTI, has recently gone into [facility] from [place] (independence living) due to frequent falls and unsafe to be independent. Her primary care or on-call sent her in for evaluation after several falls in the past several days and finding her serum Na 122 and c/o some off and on pleuritic chest pains. The nurse at [facility] thought that the chest discomforts are most likely related to these falls. Preliminary evaluation and records reviewed by Dr. Ricketts (ER) show worsened sodium 120, UTI, leukocytosis (15 K) and CT evidence of hydrocephalus ( since 05/2017) or enlarged ventricles, which appears enlarged unchanged on repeat head CT. She apparently was on Aldactone recently, which was stopped yesterday. Because of her dementia and pains from recent falls, attempted orthostatic check fails. 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 Sodium fluctuated 03/08 to 130 but now 124. Resume [facility] for antihypertensive medication, recheck orthostatic, cortisol, BN peptide, serial BMP, physical therapy, pain control. 03/10/2018 Had nighttime confusion, UTI on Rocephin. Sodium up to 126, WBC decreased to 12 k, blood pressure is high again, likely secondary to confusion or agitation. Urine culture with coag negative staph so far, pending sensitivity panel. Continue fluid restriction titrate or add antihypertensive. 03/11/2018 sodium 123, hypertensive, stress overnight --Change to regular diet for oral salt resumption. - Constitutional Vitals: Vital Signs Temp Pulse Resp BP Pulse Ox 98.1 F 79 14 153/73 94 03/11/18 03:18 03/11/18 05:37 03/11/18 03:18 03/11/18 05:37 03/11/18 03:18 Period Temp Pulse Resp BP Sys/Bacon Pulse Ox Last 24 Hr 97.6 F-99 F 75-88 14-20 109-170/64-77 94-95 Intake and Output 03/10/18 03/11/18 03/11/18 21:59 05:59 13:59 Intake Total 180 / 180 180 / 180 Output Total 325 / 325 350 / 350 Balance -145 / -145 -170 / -170 Weight 123 lb Intake & Output: Intake & Output 03/10/18 03/11/18 03/11/18 21:59 05:59 13:59 Intake Total 180 / 180 180 / 180 Output Total 325 / 325 350 / 350 Balance -145 / -145 -170 / -170 Weight 123 lb Intake: Oral 180 / 180 180 / 180 Output: Void Amount 325 / 325 350 / 350 Other: Meal Dinner Percent of Meal Consumed 50% Feeding Ability Independent # Voids 1 Medical - PN: Obj Da - Labs CBC & Chem 7: 03/11/18 04:25 03/11/18 10:07 Labs: Abnormal Lab Results 03/11/18 03/11/18 03/10/18 04:25 04:25 04:05 WBC 14.8 H RBC 3.89 L Hgb 11.6 L Hct 34.6 L Plt Count 490 H Gran % Lymph % (Auto) 13.0 L Gran # 11.5 H [place] # (Auto) 1.1 H Sodium 123 L 126 L Chloride 87 L 89 L Glucose Uric Acid Ur Leukocyte Esterase Urine RBC Urine WBC Urine Bacteria 03/10/18 03/09/18 03/09/18 04:05 20:42 04:05 WBC 12.2 H RBC 3.73 L Hgb 11.1 L Hct 32.8 L Plt Count 469 H Gran % Lymph % (Auto) 14.5 L Gran # 9.3 H [place] # (Auto) Sodium 122 L 124 L Chloride 88 L 87 L Glucose Uric Acid Ur Leukocyte Esterase Urine RBC Urine WBC Urine Bacteria 03/09/18 03/08/18 03/08/18 04:05 20:33 14:07 WBC 13.1 H RBC 3.80 L Hgb 11.4 L Hct 33.5 L Plt Count 473 H Gran % 79.0 H Lymph % (Auto) 12.9 L Gran # 10.4 H [place] # (Auto) Sodium 124 L 128 L Chloride 88 L 91 L Glucose 115 H Uric Acid 2.4 L Ur Leukocyte Esterase Urine RBC Urine WBC Urine Bacteria 03/08/18 03/08/18 11:52 07:57 WBC RBC Hgb Hct Plt Count Gran % Lymph % (Auto) Gran # [place] # (Auto) Sodium 130 L Chloride 92 L Glucose Uric Acid Ur Leukocyte Esterase 250 A Urine RBC 2 H Urine WBC 13 H Urine Bacteria Few A Meds: Medications Acetaminophen (Tylenol) 650 mg PO Q6HP PRN PRN Reason: PAIN/FEVER > 101 Last Admin: 03/11/18 02:32 Dose: 650 mg Acetaminophen/Codeine Phosphate (Tylenol #3) 1 tab PO Q6HP PRN PRN Reason: PAIN LEVEL 3-6 Last Admin: 03/10/18 08:31 Dose: 1 tab Acetaminophen/Codeine Phosphate (Tylenol #3) 1 tab PO TIDP PRN PRN Reason: Pain Amlodipine Besylate (Norvasc) 2.5 mg PO DAILY [facility] Last Admin: 03/10/18 08:07 Dose: 2.5 mg Cefazolin Sodium (Ancef) 2 gm IV Q24H [facility] Last Admin: 03/10/18 22:31 Dose: Not Given Clonidine HCl (Catapres) 0.1 mg PO ONCE [facility] Stop: 03/11/18 23:59 Last Admin: 03/11/18 04:16 Dose: Not Given Docusate Sodium (Colace) 100 mg PO BID [facility] Last Admin: 03/10/18 20:49 Dose: 100 mg Famotidine (Pepcid) 40 mg PO HS [facility] Last Admin: 03/10/18 20:49 Dose: 40 mg Fluoxetine HCl (Prozac) 40 mg PO DAILY [facility] Last Admin: 03/10/18 08:08 Dose: 40 mg Levothyroxine Sodium (Synthroid) 100 mcg PO QAMAC [facility] Last Admin: 03/10/18 06:48 Dose: 100 mcg Lidocaine (Lidoderm) 1 patch TOPICAL DAILY@1000 [facility] Last Admin: 03/10/18 10:24 Dose: 1 patch Lidocaine (Lidoderm) 0 patch TOPICAL HS@2200 [facility] Last Admin: 03/10/18 22:30 Dose: Not Given Memantine (Namenda) 10 mg PO DAILY [facility] Last Admin: 03/10/18 08:08 Dose: 10 mg Naloxone HCl (Narcan) 0.1 mg IV Q2MIN PRN PRN Reason: Opiate Reversal Ondansetron HCl (Zofran) 4 mg IV Q6HP PRN PRN Reason: Nausea And Vomiting Sodium Chloride (Saline Flush) 10 ml IV Q8 [facility] Last Admin: 03/11/18 06:08 Dose: 10 ml Tolterodine Tartrate (Detrol La) 2 mg PO DAILY [facility] Last Admin: 03/10/18 12:52 Dose: 2 mg Vitamin D (Vitamin D3) 5,000 unit PO DAILY [facility] Last Admin: 03/10/18 08:10 Dose: Not Given Medical - PN: A/P - Time Spent With Patient Total time spent is greater than 50% in coordination of care (as documented) at patient's floor/unit and/or counseling patient: (1) Hyponatremia Status: Acute Assessment and plan: As above, continue fluid restriction, monitor progressing improvement on sodium. Current Visit: Yes (2) UTI (urinary tract infection) Status: Acute Assessment and plan: Coag negative staph on preliminary urine culture results, change Rocephin to cefazolin Current Visit: Yes (3) Leukocytosis (leucocytosis) Status: Acute Assessment and plan: WBC down to 12.2K from 13.1 K (from 15.6 K), on IV Rocephin for UTI, gram- negative staph on preliminary urine culture, pending sensitivity. Current Visit: Yes (4) Contusion, hip Status: Acute Assessment and plan: Right hip lateral trochanteric bursitis from recent fall. Pain control with topical Lidoderm, and [place] as needed for breakthrough pain. Current Visit: Yes (5) Hydrocephalus Status: Acute Assessment and plan: Appears stable, will defer outpatient workup with her PCP Current Visit: Yes (6) Dementia Status: Chronic Assessment and plan: Occasional nighttime confusion, otherwise pleasant with poor memory most of the time. Current Visit: Yes (7) Abnormal ECG Status: Acute Assessment and plan: Likely had silent cardiac event in the past Current Visit: Yes (8) Falls frequently Status: Acute Assessment and plan: Back to [facility] soon, with PT OT Current Visit: Yes Medical - PN: Qual - VTE Deep Vein Thrombosis/Pulmonary Embolism Present on Admission: No
[2018-03-11] MEDS: LEVOTHYROXINE 100 MCG TABLET PO SCH (07:16)
[2018-03-11] MEDS: ceFAZolin 1 GM VIAL IV SCH ×3 (07:55→21:43)
[2018-03-11] MEDS: FLUoxetine HCL 20 MG CAPSULE PO SCH (08:09)
[2018-03-11] MEDS: TOLTERODINE 2 MG CAP.XL.24H PO SCH (08:09)
[2018-03-11] MEDS: DOCUSATE SODIUM 100 MG CAPSULE PO SCH ×2 (08:10→21:42)
[2018-03-11] MEDS: MEMANTINE 10 MG TABLET PO SCH (08:10)
[2018-03-11] MEDS: amLODIPine 5 MG TABLET PO SCH (08:10)
[2018-03-11] MEDS: ACETAMINOPHEN W/CODEINE #3 1 TABLET PO PRN ×2 (08:10→21:45)
[2018-03-11] MEDS: VITAMIN D3 400 UNIT TABLET PO SCH (08:14)
[2018-03-11] MEDS: LIDOCAINE PATCH TOPICAL SCH (10:00)
[2018-03-11] MEDS: FAMOTIDINE 20 MG TABLET PO SCH (21:42)
[2018-03-12] MEDS: LIDOCAINE PATCH TOPICAL SCH ×3 (01:22→21:40)
[2018-03-12] MEDS: ACETAMINOPHEN W/CODEINE #3 1 TABLET PO PRN ×2 (04:49→22:40)
[2018-03-12] MEDS: 0.9 % SODIUM CHLORIDE 10 ML SYRINGE IV SCH ×3 (04:53→21:40)
[2018-03-12] MEDS: ceFAZolin 1 GM VIAL IV SCH ×3 (05:29→21:38)
[2018-03-12 06:48] LABS: Basophils # (Auto) 0 K/mcL (0.0-0.3); Basophils % (Auto) 0.4 % (0.0-2.0); Eosinophils # (Auto) 0.3 K/mcL (0.0-0.7); Eosinophils % (Auto) 2.5 % (0.0-7.0); Lymphocytes # (Auto) 1.7 K/mcL (1.5-4.8); Lymphocytes % (Auto) 15.2 % (15.5-49.0); Mean Corpuscular HGB Conc 33.7 g/dL (31.0-36.0); Mean Corpuscular Hemoglobin 29.7 pg (26.0-34.0); Monocytes # (Auto) 0.9 K/mcL (0.1-0.9); Monocytes % (Auto) 7.9 % (1.0-12.0); Platelet Count 452 K/mcL (140-440); RBC 3.73 M/mcL (4.00-5.20); Red Cell Distribution Width 13.3 % (11.5-14.5)
[2018-03-12 07:22] LABS: ALT/SGPT 13 U/l (0-40); Albumin 3.5 gm/dL (3.2-5.2); Albumin/Globulin Ratio 1.1 (1.0-2.3); Alkaline Phosphatase 86 U/L (39-117); Blood Urea Nitrogen 12 mg/dl (8-23)
[2018-03-12] MEDS: LEVOTHYROXINE 100 MCG TABLET PO SCH (07:35)
[2018-03-12] MEDS: TOLTERODINE 2 MG CAP.XL.24H PO SCH (08:28)
[2018-03-12] MEDS: DOCUSATE SODIUM 100 MG CAPSULE PO SCH ×2 (08:29→20:19)
[2018-03-12] MEDS: amLODIPine 5 MG TABLET PO SCH (08:29)
[2018-03-12] MEDS: VITAMIN D3 5,000 UNIT CAPSULE PO SCH (08:29)
[2018-03-12] MEDS: FLUoxetine HCL 20 MG CAPSULE PO SCH (08:29)
[2018-03-12] MEDS: MEMANTINE 10 MG TABLET PO SCH (08:29)
[2018-03-12 10:44] LABS: proBNP 70.9 pg/ml (0-450)
--- NOTE | 2018-03-12 11:18 | Internal Med Progress Note ---
Medical - PN: Subj Patient information: Note initiated : 03/12/18 at 11:17 am Service Date, if different from initiated Date: [] Patient: Fidelina Blackwell 87 y/o F admitted on 03/08/18 for Chest Pain/ Hyponatremia. Chief Complaint: [] Interval history: 87 year old F history of dementia, hypertension, hypothyroidism, GERD, frequent falls, T8 compression fracture, and frequent UTI, has recently gone into [facility] from [place] (ind[facility] living) due to frequent falls and unsafe to be independent. Her primary care or on-call sent her in for evaluation after several falls in the past several days and finding her serum Na 122 and c/o some off and on pleuritic chest pains. The nurse at [facility] thought that the chest discomforts are most likely related to these falls. Preliminary evaluation and records reviewed by Dr. Ricketts (ER) show worsened sodium 120, UTI, leukocytosis (15 K) and CT evidence of hydrocephalus ( since 05/2017) or enlarged ventricles, which appears enlarged unchanged on repeat head CT. She apparently was on Aldactone recently, which was stopped yesterday. Because of her dementia and pains from recent falls, attempted orthostatic check fails. 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 Sodium fluctuated 03/08 to 130 but now 124. Resume [facility] for antihypertensive medication, recheck orthostatic, cortisol, BN peptide, serial BMP, physical therapy, pain control. 03/10/2018 Had nighttime confusion, UTI on Rocephin. Sodium up to 126, WBC decreased to 12 k, blood pressure is high again, likely secondary to confusion or agitation. Urine culture with coag negative staph so far, pending sensitivity panel. Continue fluid restriction titrate or add antihypertensive. 03/11/2018 sodium 123, hypertensive, stress overnight --Change to regular diet for oral salt resumption. 03/12/18 - Constitutional Vitals: Vital Signs Temp Pulse Resp BP Pulse Ox 98 F 78 20 148/74 93 03/12/18 07:15 03/12/18 07:15 03/12/18 07:15 03/12/18 08:37 03/12/18 07:15 Period Temp Pulse Resp BP Sys/Bacon Pulse Ox Last 24 Hr 97.6 F-98 F 74-80 16-22 116-158/57-76 93-98 Intake and Output 03/11/18 03/12/18 03/12/18 21:59 05:59 13:59 Intake Total 360 / 360 150 / 150 150 / 150 Output Total 280 / 280 301 / 301 125 / 125 Balance 80 / 80 -151 / -151 25 / 25 Weight 125 lb 8 oz Intake & Output: Intake & Output 03/11/18 03/12/18 03/12/18 21:59 05:59 13:59 Intake Total 360 / 360 150 / 150 150 / 150 Output Total 280 / 280 301 / 301 125 / 125 Balance 80 / 80 -151 / -151 25 / 25 Weight 125 lb 8 oz Intake: Oral 360 / 360 150 / 150 150 / 150 Output: Void Amount 280 / 280 300 / 300 125 / 125 # of times incontinent of urine Other: Meal Breakfast Percent of Meal Consumed 100% # Voids 1 # Bowel Movements 1 Medical - PN: Obj Da - Labs CBC & Chem 7: 03/12/18 06:00 03/12/18 06:00 Labs: Abnormal Lab Results 03/12/18 03/12/18 03/11/18 06:00 06:00 10:07 WBC 11.4 H RBC 3.73 L Hgb 11.1 L Hct 32.8 L Plt Count 452 H MPV 7.1 L Lymph % (Auto) 15.2 L Gran # 8.4 H [place] # (Auto) Sodium 124 L 124 L Chloride 87 L 03/11/18 03/11/18 03/10/18 04:25 04:25 04:05 WBC 14.8 H RBC 3.89 L Hgb 11.6 L Hct 34.6 L Plt Count 490 H MPV Lymph % (Auto) 13.0 L Gran # 11.5 H [place] # (Auto) 1.1 H Sodium 123 L 126 L Chloride 87 L 89 L 03/10/18 03/09/18 04:05 20:42 WBC 12.2 H RBC 3.73 L Hgb 11.1 L Hct 32.8 L Plt Count 469 H MPV Lymph % (Auto) 14.5 L Gran # 9.3 H [place] # (Auto) Sodium 122 L Chloride 88 L Meds: Medications Acetaminophen (Tylenol) 650 mg PO Q6HP PRN PRN Reason: PAIN/FEVER > 101 Last Admin: 03/11/18 02:32 Dose: 650 mg Acetaminophen/Codeine Phosphate (Tylenol #3) 1 tab PO Q6HP PRN PRN Reason: PAIN LEVEL 3-6 Last Admin: 03/12/18 04:49 Dose: 1 tab Acetaminophen/Codeine Phosphate (Tylenol #3) 1 tab PO TIDP PRN PRN Reason: Pain Amlodipine Besylate (Norvasc) 2.5 mg PO DAILY [facility] Last Admin: 03/12/18 08:29 Dose: 2.5 mg Cefazolin Sodium (Ancef) 1 gm IV Q8H [facility] Last Admin: 03/12/18 05:29 Dose: 1 gm Docusate Sodium (Colace) 100 mg PO BID [facility] Last Admin: 03/12/18 08:29 Dose: 100 mg Famotidine (Pepcid) 40 mg PO HS [facility] Last Admin: 03/11/18 21:42 Dose: 40 mg Fluoxetine HCl (Prozac) 40 mg PO DAILY [facility] Last Admin: 03/12/18 08:29 Dose: 40 mg Levothyroxine Sodium (Synthroid) 100 mcg PO QAMAC [facility] Last Admin: 03/12/18 07:35 Dose: 100 mcg Lidocaine (Lidoderm) 1 patch TOPICAL DAILY@1000 [facility] Last Admin: 03/12/18 10:14 Dose: 1 patch Lidocaine (Lidoderm) 0 patch TOPICAL HS@2200 [facility] Last Admin: 03/12/18 01:22 Dose: Not Given Memantine (Namenda) 10 mg PO DAILY [facility] Last Admin: 03/12/18 08:29 Dose: 10 mg Naloxone HCl (Narcan) 0.1 mg IV Q2MIN PRN PRN Reason: Opiate Reversal Ondansetron HCl (Zofran) 4 mg IV Q6HP PRN PRN Reason: Nausea And Vomiting Sodium Chloride (Saline Flush) 10 ml IV Q8 [facility] Last Admin: 03/12/18 04:53 Dose: 10 ml Tolterodine Tartrate (Detrol La) 2 mg PO DAILY [facility] Last Admin: 03/12/18 08:28 Dose: 2 mg Vitamin D (Vitamin D3) 5,000 unit PO DAILY [facility] Last Admin: 03/12/18 08:29 Dose: 5,000 unit Medical - PN: A/P - Time Spent With Patient Total time spent is greater than 50% in coordination of care (as documented) at patient's floor/unit and/or counseling patient: (1) Hyponatremia Status: Acute Assessment and plan: As above, continue fluid restriction, monitor progressing improvement on sodium. Current Visit: Yes (2) UTI (urinary tract infection) Status: Acute Assessment and plan: Coag negative staph on preliminary urine culture results, change Rocephin to cefazolin Current Visit: Yes (3) Leukocytosis (leucocytosis) Status: Acute Assessment and plan: WBC down to 12.2K from 13.1 K (from 15.6 K), on IV Rocephin for UTI, gram- negative staph on preliminary urine culture, pending sensitivity. Current Visit: Yes (4) Contusion, hip Status: Acute Assessment and plan: Right hip lateral trochanteric bursitis from recent fall. Pain control with topical Lidoderm, and [place] as needed for breakthrough pain. Current Visit: Yes (5) Hydrocephalus Status: Acute Assessment and plan: Appears stable, will defer outpatient workup with her PCP Current Visit: Yes (6) Dementia Status: Chronic Assessment and plan: Occasional nighttime confusion, otherwise pleasant with poor memory most of the time. Current Visit: Yes (7) Abnormal ECG Status: Acute Assessment and plan: Likely had silent cardiac event in the past Current Visit: Yes (8) Falls frequently Status: Acute Assessment and plan: Back to [facility] soon, with PT OT Current Visit: Yes Medical - PN: Qual - VTE Deep Vein Thrombosis/Pulmonary Embolism Present on Admission: No
--- NOTE | 2018-03-12 14:06 | Ultrasound Report ---
CLINICAL INFORMATION: Right hip injury. Soft tissue hematoma TECHNIQUE: Routine soft tissue ultrasound. Grayscale and color flow Doppler spectral imaging COMPARISON: None. FINDINGS: There is a hypoechoic mass lateral to the right hip. This measures approximately 8.5 x 2.0 x 5.4 cm. This is heterogeneous and is consistent with a soft tissue hematoma. No active bleeding identified. This is not a simple fluid collection IMPRESSION: 8 cm hypoechoic but not sonolucent abnormality in the soft tissues overlying the right hip. Appearance is consistent with soft tissue hematoma Interpreted and Authenticated by: Oumar Walls 03/12/18
[2018-03-12] MEDS: FAMOTIDINE 20 MG TABLET PO SCH (20:18)
[2018-03-13] MEDS: 0.9 % SODIUM CHLORIDE 10 ML SYRINGE IV SCH ×3 (05:17→21:02)
[2018-03-13] MEDS: ceFAZolin 1 GM VIAL IV SCH ×3 (05:18→21:01)
[2018-03-13 05:21] LABS: Basophils # (Auto) 0.1 K/mcL (0.0-0.3); Basophils % (Auto) 0.4 % (0.0-2.0); Eosinophils # (Auto) 0.4 K/mcL (0.0-0.7); Eosinophils % (Auto) 2.6 % (0.0-7.0); Granulocytes % (Auto) 73.6 % (38.0-78.0); Lymphocytes # (Auto) 2.1 K/mcL (1.5-4.8); Lymphocytes % (Auto) 15.5 % (15.5-49.0); Mean Cell Volume 88.3 fL (80.0-100.0); Mean Corpuscular HGB Conc 33.5 g/dL (31.0-36.0); Mean Corpuscular Hemoglobin 29.6 pg (26.0-34.0); Monocytes # (Auto) 1.1 K/mcL (0.1-0.9); Monocytes % (Auto) 7.9 % (1.0-12.0); Platelet Count 458 K/mcL (140-440); RBC 3.64 M/mcL (4.00-5.20); Red Cell Distribution Width 13.9 % (11.5-14.5)
[2018-03-13 05:48] LABS: Blood Urea Nitrogen 10 mg/dl (8-23)
--- NOTE | 2018-03-13 08:17 | Internal Med Progress Note ---
Medical - PN: Subj Patient information: Note initiated : 03/13/18 at 8:17 am Service Date, if different from initiated Date: [] Patient: Fidelina Blackwell 87 y/o F admitted on 03/08/18 for Chest Pain/ Hyponatremia. Chief Complaint: [] Interval history: 87 year old F history of dementia, hypertension, hypothyroidism, GERD, frequent falls, T8 compression fracture, and frequent UTI, has recently gone into [facility] from [place] (independence living) due to frequent falls and unsafe to be independent. Her primary care or on-call sent her in for evaluation after several falls in the past several days and finding her serum Na 122 and c/o some off and on pleuritic chest pains. The nurse at [facility] thought that the chest discomforts are most likely related to these falls. Preliminary evaluation and records reviewed by Dr. Ricketts (ER) show worsened sodium 120, UTI, leukocytosis (15 K) and CT evidence of hydrocephalus ( since 05/2017) or enlarged ventricles, which appears enlarged unchanged on repeat head CT. She apparently was on Aldactone recently, which was stopped yesterday. Because of her dementia and pains from recent falls, attempted orthostatic check fails. 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 Sodium fluctuated 03/08 to 130 but now 124. Resume [facility] for antihypertensive medication, recheck orthostatic, cortisol, BN peptide, serial BMP, physical therapy, pain control. 03/10/2018 Had nighttime confusion, UTI on Rocephin. Sodium up to 126, WBC decreased to 12 k, blood pressure is high again, likely secondary to confusion or agitation. Urine culture with coag negative staph so far, pending sensitivity panel. Continue fluid restriction titrate or add antihypertensive. 03/11/2018 sodium 123, hypertensive, stress overnight --Change to regular diet for oral salt resumption. 03/12/18 - Constitutional Vitals: Vital Signs Temp Pulse Resp BP Pulse Ox 97.3 F 71 24 H 161/75 94 03/13/18 06:47 03/13/18 06:47 03/13/18 06:47 03/13/18 06:47 03/13/18 06:47 Period Temp Pulse Resp BP Sys/Bacon Pulse Ox Last 24 Hr 97.3 F-98.0 F 70-77 14-24 108-174/64-76 93-96 Intake and Output 03/12/18 03/13/18 03/13/18 21:59 05:59 13:59 Intake Total 420 / 420 360 / 360 Output Total 275 / 275 325 / 325 225 / 225 Balance 145 / 145 35 / 35 -225 / -225 Weight 126 lb Intake & Output: Intake & Output 03/12/18 03/13/18 03/13/18 21:59 05:59 13:59 Intake Total 420 / 420 360 / 360 Output Total 275 / 275 325 / 325 225 / 225 Balance 145 / 145 35 / 35 -225 / -225 Weight 126 lb Intake: Oral 420 / 420 360 / 360 Output: Void Amount 275 / 275 325 / 325 225 / 225 Other: Meal Dinner Percent of Meal Consumed 50% Feeding Ability Assist with Tray Set Up Stool Size Moderate Stool Color Brown Stool Consistency Formed # Voids 1 1 # Bowel Movements 1 Medical - PN: Obj Da - Labs CBC & Chem 7: 03/13/18 04:00 03/13/18 04:00 Labs: Abnormal Lab Results 03/13/18 03/13/18 03/12/18 04:00 04:00 06:00 WBC 13.6 H RBC 3.64 L Hgb 10.8 L Hct 32.1 L Plt Count 458 H MPV 7.3 L Lymph % (Auto) Gran # 10.0 H [place] # (Auto) 1.1 H Sodium 126 L 124 L Chloride 91 L 87 L Creatinine 0.5 L 03/12/18 03/11/18 03/11/18 06:00 10:07 04:25 WBC 11.4 H RBC 3.73 L Hgb 11.1 L Hct 32.8 L Plt Count 452 H MPV 7.1 L Lymph % (Auto) 15.2 L Gran # 8.4 H [place] # (Auto) Sodium 124 L 123 L Chloride 87 L Creatinine 03/11/18 04:25 WBC 14.8 H RBC 3.89 L Hgb 11.6 L Hct 34.6 L Plt Count 490 H MPV Lymph % (Auto) 13.0 L Gran # 11.5 H [place] # (Auto) 1.1 H Sodium Chloride Creatinine Meds: Medications Acetaminophen (Tylenol) 650 mg PO Q6HP PRN PRN Reason: PAIN/FEVER > 101 Last Admin: 03/11/18 02:32 Dose: 650 mg Acetaminophen/Codeine Phosphate (Tylenol #3) 1 tab PO Q6HP PRN PRN Reason: PAIN LEVEL 3-6 Last Admin: 03/12/18 22:40 Dose: 1 tab Acetaminophen/Codeine Phosphate (Tylenol #3) 1 tab PO TIDP PRN PRN Reason: Pain Amlodipine Besylate (Norvasc) 2.5 mg PO DAILY [facility] Last Admin: 03/12/18 08:29 Dose: 2.5 mg Cefazolin Sodium (Ancef) 1 gm IV Q8H [facility] Last Admin: 03/13/18 05:18 Dose: 1 gm Docusate Sodium (Colace) 100 mg PO BID [facility] Last Admin: 03/12/18 20:19 Dose: 100 mg Famotidine (Pepcid) 40 mg PO HS [facility] Last Admin: 03/12/18 20:18 Dose: 40 mg Fluoxetine HCl (Prozac) 40 mg PO DAILY [facility] Last Admin: 03/12/18 08:29 Dose: 40 mg Levothyroxine Sodium (Synthroid) 100 mcg PO QAMAC [facility] Last Admin: 03/12/18 07:35 Dose: 100 mcg Lidocaine (Lidoderm) 1 patch TOPICAL DAILY@1000 [facility] Last Admin: 03/12/18 10:14 Dose: 1 patch Lidocaine (Lidoderm) 0 patch TOPICAL HS@2200 [facility] Last Admin: 03/12/18 21:40 Dose: Not Given Memantine (Namenda) 10 mg PO DAILY [facility] Last Admin: 03/12/18 08:29 Dose: 10 mg Naloxone HCl (Narcan) 0.1 mg IV Q2MIN PRN PRN Reason: Opiate Reversal Ondansetron HCl (Zofran) 4 mg IV Q6HP PRN PRN Reason: Nausea And Vomiting Sodium Chloride (Saline Flush) 10 ml IV Q8 [facility] Last Admin: 03/13/18 05:17 Dose: 10 ml Tolterodine Tartrate (Detrol La) 2 mg PO DAILY [facility] Last Admin: 03/12/18 08:28 Dose: 2 mg Vitamin D (Vitamin D3) 5,000 unit PO DAILY [facility] Last Admin: 03/12/18 08:29 Dose: 5,000 unit Medical - PN: A/P - Time Spent With Patient Total time spent is greater than 50% in coordination of care (as documented) at patient's floor/unit and/or counseling patient: (1) Hyponatremia Status: Acute Assessment and plan: As above, continue fluid restriction, monitor progressing improvement on sodium. Current Visit: Yes (2) UTI (urinary tract infection) Status: Acute Assessment and plan: Coag negative staph on preliminary urine culture results, change Rocephin to cefazolin Current Visit: Yes (3) Leukocytosis (leucocytosis) Status: Acute Assessment and plan: WBC down to 12.2K from 13.1 K (from 15.6 K), on IV Rocephin for UTI, gram- negative staph on preliminary urine culture, pending sensitivity. Current Visit: Yes (4) Contusion, hip Status: Acute Assessment and plan: Right hip lateral trochanteric bursitis from recent fall. Pain control with topical Lidoderm, and [place] as needed for breakthrough pain. Current Visit: Yes (5) Hydrocephalus Status: Acute Assessment and plan: Appears stable, will defer outpatient workup with her PCP Current Visit: Yes (6) Dementia Status: Chronic Assessment and plan: Occasional nighttime confusion, otherwise pleasant with poor memory most of the time. Current Visit: Yes (7) Abnormal ECG Status: Acute Assessment and plan: Likely had silent cardiac event in the past Current Visit: Yes (8) Falls frequently Status: Acute Assessment and plan: Back to [facility] soon, with PT OT Current Visit: Yes Medical - PN: Qual - VTE Deep Vein Thrombosis/Pulmonary Embolism Present on Admission: No
[2018-03-13] MEDS: DOCUSATE SODIUM 100 MG CAPSULE PO SCH ×2 (08:55→21:01)
[2018-03-13] MEDS: FLUoxetine HCL 20 MG CAPSULE PO SCH (08:55)
[2018-03-13] MEDS: amLODIPine 5 MG TABLET PO SCH (08:55)
[2018-03-13] MEDS: TOLTERODINE 2 MG CAP.XL.24H PO SCH (08:56)
[2018-03-13] MEDS: MEMANTINE 10 MG TABLET PO SCH (08:56)
[2018-03-13] MEDS: LEVOTHYROXINE 100 MCG TABLET PO SCH (08:56)
[2018-03-13] MEDS: VITAMIN D3 5,000 UNIT CAPSULE PO SCH (08:56)
[2018-03-13] MEDS: ACETAMINOPHEN 325 MG TABLET PO PRN ×2 (08:56→21:02)
[2018-03-13] MEDS: LIDOCAINE PATCH TOPICAL SCH ×2 (11:13→21:02)
[2018-03-13] MEDS: FAMOTIDINE 20 MG TABLET PO SCH (21:01)
[2018-03-14] MEDS: ACETAMINOPHEN 325 MG TABLET PO PRN (03:17)
[2018-03-14] MEDS: 0.9 % SODIUM CHLORIDE 10 ML SYRINGE IV SCH (05:26)
[2018-03-14] MEDS: ceFAZolin 1 GM VIAL IV SCH ×2 (05:26→14:11)
[2018-03-14 06:17] LABS: Basophils # (Auto) 0.1 K/mcL (0.0-0.3); Basophils % (Auto) 0.4 % (0.0-2.0); Eosinophils # (Auto) 0.3 K/mcL (0.0-0.7); Eosinophils % (Auto) 2.4 % (0.0-7.0); Granulocytes % (Auto) 74.4 % (38.0-78.0); Lymphocytes % (Auto) 15.2 % (15.5-49.0); Mean Cell Volume 88.2 fL (80.0-100.0); Mean Corpuscular HGB Conc 34.2 g/dL (31.0-36.0); Mean Corpuscular Hemoglobin 30.1 pg (26.0-34.0); Monocytes % (Auto) 7.6 % (1.0-12.0); Platelet Count 437 K/mcL (140-440); RBC 3.56 M/mcL (4.00-5.20); Red Cell Distribution Width 13.9 % (11.5-14.5)
[2018-03-14 06:21] LABS: Blood Urea Nitrogen 9 mg/dl (8-23)
[2018-03-14] MEDS: MEMANTINE 10 MG TABLET PO SCH (08:26)
[2018-03-14] MEDS: amLODIPine 5 MG TABLET PO SCH (08:26)
[2018-03-14] MEDS: VITAMIN D3 5,000 UNIT CAPSULE PO SCH (08:27)
[2018-03-14] MEDS: FLUoxetine HCL 20 MG CAPSULE PO SCH (08:27)
[2018-03-14] MEDS: DOCUSATE SODIUM 100 MG CAPSULE PO SCH (08:27)
[2018-03-14] MEDS: LEVOTHYROXINE 100 MCG TABLET PO SCH (08:27)
[2018-03-14] MEDS: TOLTERODINE 2 MG CAP.XL.24H PO SCH (08:28)
[2018-03-14] MEDS ORDERED: LOSARTAN 25 MG TABLET PO SCH (09:00)
--- NOTE | 2018-03-14 12:44 | Discharge Summary ---
Medical - DS: Prov Patient information: Note initiated : 03/14/18 at 12:20 pm Service Date, if different from initiated Date: [] Patient: Fidelina Blackwell 87 y/o F admitted on 03/08/18 for Chest Pain/ Hyponatremia. Chief Complaint: [] Date of admission: 03/08/18 01:55 Discharge date: 03/14/18 Primary care physician: Shaye Noonan Admitting clinician: Yesi Alford Consults: 03/07/18 20:41 Consult to Physician [CONS] Stat Comment: Consulting Provider: Yesi Alford Reason For Exam: Physician to Consult Attending physician on discharge: Yesi Alford Medical - DS: Meds - Discharge Medications Prescriptions: Losartan [Cozaar] 25 mg PO QHS #20 tab Cephalexin [Keflex] 500 mg PO BID #10 cap Active and Home Medications: Home Medications FLUoxetine HCL [Fluoxetine HCl] 40 mg PO DAILY 12/02/16 [History Confirmed 03/08 Last Taken 03/07/18 07:00] Levothyroxine [Synthroid] 100 mcg PO QAMAC 12/02/16 [History Confirmed 03/08/18 Last Taken 03/07/18 05:08] Losartan [Cozaar] 100 mg PO DAILY 12/02/16 [History Confirmed 03/08/18 Last Taken 02/28/18 07:26] Memantine [Namenda] 10 mg PO DAILY 12/02/16 [History Confirmed 03/08/18 Last Taken 03/07/18 07:00] Tolterodine [Detrol LA] 2 mg PO DAILY 12/02/16 [History Confirmed 03/08/18 Last Taken 03/07/18 07:00] Trimethoprim 100 mg PO DAILY 12/02/16 [History Confirmed 03/08/18 Last Taken 05/17 07:00] amLODIPine [Norvasc] 2.5 mg PO DAILY 12/02/16 [History Confirmed 03/08/18 Last Taken 03/07/18 11:43] Ranitidine HCl [Zantac] 300 mg PO DAILY 09/18/17 [History Confirmed 03/08/18 Last Taken 03/07/18 07:00] Vitamin D3 5,000 unit PO DAILY 12/26/17 [History Confirmed 03/08/18 Last Taken 03/07/18 07:00] Acetaminophen W/Codeine #3 [Tylenol #3] 1 tab PO TIDP PRN #30 tab 12/28/17 [Rx Confirmed 03/08/18 Last Taken 03/06/18] fentaNYL [Fentanyl] 12 mcg TD Q72H #10 patch.td72 12/28/17 [Rx Confirmed Last Taken 03/05/18 09:12] Bisacodyl [Dulcolax] 10 mg VT DAILYP PRN 03/07/18 [History Confirmed 03/08/18 Last Taken Unknown] Docusate Sodium [Colace] 100 mg PO BID 03/07/18 [History Confirmed 03/08/18 Last Taken 03/06/18] Magnesium Hydroxide [Milk of Magnesia] 30 ml PO DAILYP PRN 03/07/18 [History Confirmed 03/08/18 Last Taken Unknown] Melatonin [Melatin] 3 mg PO HSP PRN 03/07/18 [History Confirmed 03/08/18 Last Taken 03/05/18 08:41] Spironolactone [Aldactone] 25 mg PO DAILY 03/07/18 [History Confirmed 03/08/18 Last Taken 03/07/18 09:05] Valsartan [Diovan] 80 mg PO DAILY 03/07/18 [History Confirmed 03/08/18 Last Taken 03/07/18 09:05] diphenhydrAMINE [Benadryl] 25 mg PO HSP PRN 03/07/18 [History Confirmed Last Taken 03/01/18 23:51] Lidocaine [Lidoderm] 1 patch TOPICAL DAILY 03/08/18 [History Confirmed 03/08/18 Last Taken 02/24/18 07:57] Medical - DS: Hosp Hospital course: Mr. Blackwell is a 87 year old F 87 year old F history of dementia, hypertension, hypothyroidism, GERD, frequent falls, T8 compression fracture, and frequent UTI, has recently gone into [facility] from [place] (independence living) due to frequent falls and unsafe to be independent. Her primary care or on-call sent her in for evaluation after several falls in the past several days and finding her serum Na 122 and c/o some off and on pleuritic chest pains. The nurse at [facility] thought that the chest discomforts are most likely related to these falls. Preliminary evaluation and records reviewed by Dr. Ricketts (ER) show worsened sodium 120, UTI, leukocytosis (15 K) and CT evidence of hydrocephalus ( since 05/2017) or enlarged ventricles, which appears enlarged unchanged on repeat head CT. She apparently was on Aldactone recently, which was stopped yesterday. Because of her dementia and pains from recent falls, attempted orthostatic check fails. 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 Sodium fluctuated 03/08 to 130 but now [address]ume [facility] for antihypertensive medication, recheck orthostatic, cortisol, BN peptide, serial BMP, physical therapy, pain control. 03/10/2018 Had nighttime confusion, UTI on Rocephin. Sodium up to 126, WBC decreased to 12 k, blood pressure is high again, likely secondary to confusion or agitation. Urine culture with coag negative staph so far, pending sensitivity panel. Continue fluid restriction titrate or add antihypertensive. 03/11/2018 sodium 123, hypertensive, stress overnight, otherwise asymptomatic. Throughout the rest of her hospital course, her sodium fluctuated, however without any symptoms. Her low sodium is secondary to SIADH, worsen and compounded by stress and pain, and and should be self corrected over time as she'll recover from her recent falls. Her urine culture came back with coag-negative staph resistant to Levaquin and Bactrim, and most sensitive to cefazolin. She tolerated IV ceftezole and participated with PT OT. She continued to have evening hypertension, which is likely secondary to her pain from her recent falls, especially right hip trochanteric hematoma, which ultrasound showed no drainable fluid collection. There are incidental finding of ventricle enlargement on head CT, she'll need to follow with PCP to further evaluate etiology and if potential treatments are warranted. Her fentanyl, Aldactone, trimethoprim, valsartan has been discontinued. Low-dose losartan 25 mg every afternoon is resume for evening hypertension. Therefore she is to be discharged home at [facility] with PT OT. She is to return repeat UA after finish 5 day course of Keflex, and lab work for CBC and CMP, results to PCP (Dr. Lasha Tamez, Shaye Coon for review and medication changes. Discharge diagnosis: Hyponatremia, SIADH Secondary discharge diagnosis: UTI (urinary tract infection), gram-negative staph, resistant to Levaquin and Bactrim. Contusion, right hip Leukocytosis, resolving and stable Hydrocephalus, stable, will defer outpatient workup with her PCP Abnormal ECG, stable, Likely had silent cardiac event in the past Falls frequently, Back to [facility], with PT OT, fall precaution. - Time Spent with Patient Total time spent providing and/or coordinating discharge services: Greater than 30 minutes Medical - DS: Exam - Constitutional Vitals: Vital Signs Temp Pulse Resp BP Pulse Ox 03/14/18 11:12 98.8 F 16 126/55 97 03/14/18 06:34 98.5 F 16 132/71 94 03/14/18 03:21 97.3 F 77 19 170/78 95 03/13/18 23:21 98.4 F 73 20 184/75 96 03/13/18 19:09 97.9 F 75 21 128/68 93 03/13/18 18:57 21 03/13/18 15:25 98.9 F 79 20 123/67 95 Intake and Output 03/13/18 03/14/18 03/14/18 21:59 05:59 13:59 Intake Total 450 / 450 400 / 400 240 / 240 Output Total 300 / 300 450 / 450 300 / 300 Balance 150 / 150 -50 / -50 -60 / -60 Intake: Oral 450 / 450 400 / 400 240 / 240 Output: Void Amount 300 / 300 450 / 450 300 / 300 Other: Meal Dinner ice cream Percent of Meal Consumed 50% 100% Stool Size Moderate Large Stool Color Brown Brown Stool Consistency Formed Soft Formed # Voids 1 # Bowel Movements 1 1 Weight 126 lb 8 oz General appearance: no acute distress - Head Head exam: Present: atraumatic, normocephalic Additional comments: Right frontal face bruises looks almost back to normal - Eye Eye exam: Present: EOMI Pupils: Present: normal accommodation, PERRL - ENT ENT exam: Present: mucous membranes moist - Neck Neck exam: Present: full ROM. Absent: meningismus - Respiratory Respiratory exam: Present: CTAB. Absent: accessory muscle use - Cardiovascular Cardiovascular exam: Present: +S1, +S2. Absent: gallop, rubs - GI/Abdominal GI/Abdominal exam: Present: normal bowel sounds, soft. Absent: guarding, rebound, tenderness - Extremities Exam Extremities exam: Present: full ROM. Absent: pedal edema, tenderness - Neurological Exam Neurological exam: Present: alert, CN II-XII intact Additional comments: Oriented, but with memory problems, senile dementia and confusion at times - Skin Skin exam: Present: dry, warm Medical - DS: Data Procedures and tests throughout hospitalization: Head CT without contrast IMPRESSION: 1. Ventricular enlargement, unchanged since 2017 2. White matter abnormality consistent with small vessel ischemic change 3. No acute abnormality. No interval change since 06/03/2017 The exam was performed using radiation dose optimization techniques including, but not limited to, automated exposure control, adjustment of the mA and/or kV according to patient size and use of iterative reconstruction technique. Interpreted and Authenticated by: Oumar Walls 03/07/18 US extremity nonvascular, right hip IMPRESSION: 8 cm hypoechoic but not sonolucent abnormality in the soft tissues overlying the right hip. Appearance is consistent with soft tissue hematoma Interpreted and Authenticated by: Oumar Walls 03/12/18 Labs on day of discharge: Labs from last 24 hours 03/14/18 03/14/18 04:00 04:00 WBC 13.4 H RBC 3.56 L Hgb 10.7 L Hct 31.4 L MCV 88.2 MCH 30.1 MCHC 34.2 RDW 13.9 Plt Count 437 MPV 7.5 Gran % 74.4 Lymph % (Auto) 15.2 L [place] % (Auto) 7.6 Eos % (Auto) 2.4 Baso % (Auto) 0.4 Gran # 9.9 H Lymph # (Auto) 2.0 [place] # (Auto) 1.0 H Eos # (Auto) 0.3 Baso # (Auto) 0.1 Sodium 125 L Potassium 3.5 Chloride 89 L Carbon Dioxide 25 Anion Gap 11.0 BUN 9 Creatinine 0.5 L GFR Calculation 88 Glucose 92 Calcium 9.1 Medical - DS: A/P - Patient/Caregiver Discharge Instructions Activity: as per physical therapy Diet: Regular Diet, Low Fat Additional Instructions: Follow with PCP in 1-2 weeks, lab work in 1 week (results to PCP for review and medication changes). Other Amb Orders: Complete Blood Count Time Frame: 1 Week, Location: Determined By Patient Comprehensive Metabolic Panel Time Frame: 1 Week, Location: Determined By Patient Urinalysis Time Frame: 1 Week, Location: Determined By Patient - Problem Maintenance (1) Hyponatremia Status: Acute Comment: SIADH, hypertensive, and pain exacerbation (2) UTI (urinary tract infection) Status: Acute Comment: gram-negative staph, resistant to Levaquin and Bactrim , 5 day course of Keflex orally. Qualifiers: Urinary tract infection type: acute cystitis Hematuria presence: without hematuria Qualified Code(s): N30.00 - Acute cystitis without hematuria (3) Leukocytosis (leucocytosis) Status: Acute Comment: Likely secondary to UTI, 5 day course of Keflex orally Qualifiers: Qualified Code(s): D72.823 - Leukemoid reaction (4) Contusion, hip Status: Acute (5) Hydrocephalus Status: Acute Comment: stable, outpatient workup with her PCP (6) Dementia Status: Chronic Qualifiers: Dementia type: Alzheimer's disease Alzheimer's disease onset: late-onset Dementia behavioral disturbance: without behavioral disturbance Qualified Code (s): G30.1 - Alzheimer's disease with late onset; F02.80 - Dementia in other diseases classified elsewhere without behavioral disturbance (7) Abnormal ECG Status: Acute Comment: Stable, silent cardiac event in the past (8) Falls frequently Status: Acute - Follow up Plan Follow up with: Shaye Noonan MD [Primary Care Provider] - Disposition: Xfer SNF Prognosis: Fair Rehab Potential: Fair I certify that the patient requires SNF services: Yes (PT OT rehabilitation) Overall status at discharge: patient is progressing back to baseline Medical - DS: Qual - VTE Deep Vein Thrombosis/Pulmonary Embolism Present on Admission: No
[2018-03-14] MEDS: LIDOCAINE PATCH TOPICAL SCH (14:09)
== END 2018-03-14 14:37 | DRG 644 ==
LOC: ED 18:37 → ICU 03-08 01:55 → MEDSUR 03-08 12:43
PROVIDERS: ADMIT Emergency Medicine; ATTEND Emergency Medicine

== ENCOUNTER 2018-08-23 11:35 | Inpatient (IN) ==
[2018-08-23] MEDS ORDERED: ASPIRIN 81 MG TAB.CHEW CHEWED ONE (11:39)
[2018-08-23] MEDS ORDERED: ONDANSETRON 4 MG/2 ML VIAL IV ONE (11:52)
--- NOTE | 2018-08-23 11:54 | Emergency Department Note ---
Chest Pain HPI - General Chief Complaint: Chest Pain Stated Complaint: Chest Pain Time Seen by Provider: 08/23/18 11:48 Source: patient Mode of arrival: ambulatory Limitations: no limitations - History of Present Illness HPI Narrative: This is a demented female who says she has had chest pain for a week. She was seen yesterday in minor care and started on nitrofurantoin for UTI. She is developed nausea vomiting diarrhea and some mild discomfort. Chest pain is vague across the central chest. No history of cardiac disease. Her initial EKG is normal. She is here with her daughter who gives some history. - Related Data Home Medications Medication Instructions Recorded Confirmed FLUoxetine HCL [Fluoxetine HCl] 40 mg PO DAILY 12/02/16 08/23/18 Levothyroxine [Synthroid] 100 mcg PO QAMAC 12/02/16 08/23/18 Memantine [Namenda] 10 mg PO DAILY 12/02/16 08/23/18 amLODIPine [Norvasc] 2.5 mg PO DAILY 12/02/16 08/23/18 Ranitidine HCl [Zantac] 300 mg PO DAILY 09/18/17 08/23/18 Vitamin D3 5,000 unit PO DAILY 12/26/17 08/23/18 Docusate Sodium [Colace] 100 mg PO BID 03/07/18 08/23/18 Melatonin [Melatin] 3 mg PO HSP PRN 03/07/18 08/23/18 Losartan [Cozaar] 50 mg PO QHS 08/23/18 08/23/18 Spironolactone [Aldactone] 25 mg PO ONCE 08/23/18 08/23/18 Previous Rx's Medication Instructions Recorded Acetaminophen W/Codeine #3 1 tab PO TIDP PRN #10 tab 03/14/18 [Tylenol #3] nitrofurantoin 1 cap PO Q12H 7 Days #14 cap 08/22/18 monohydrate/macrocrystals 100 mg capsule phenazopyridine 200 mg tablet 200 mg PO TID PRN #6 tab 08/22/18 Allergies Allergy/AdvReac Type Severity Reaction Status Date / Time Sulfa (Sulfonamide Allergy Intermediate Rash Verified 08/22/18 14:46 Antibiotics) Review of Systems All systems ED: reviewed and negative except as stated. Chest Pain PMH - Past Medical History PMFSH Narrative: Medical History (Last Reviewed 12/21/17 @ 14:22 by Avi Weir PA-C) Hives (Acute) Allergic reaction (Acute) Fall (Acute) Medical history: Reports: dementia, GERD, hypertension, thyroid disease, other ( urinary incontinence) Psychiatric history: Reports: depression Family history: Reports: no significant family history - Social History smoking status: Never smoker Alcohol use: Reports: None Drug use: Reports: none Physical Exam Limitations: no limitations General appearance: alert Head: atraumatic, normocephalic Eye: Present: normal appearance ENT: normal exam Neck: Present: normal inspection Chest: Present: normal inspection Respiratory: Present: rales/crackles Cardiovascular: Present: regular rate, normal rhythm, normal heart sounds Abdominal: Present: soft, tenderness. Absent: distention, guarding, rebound, rigidity Abdominal tenderness: Present: diffuse, mild Neurological: Present: alert Psychiatric: Present: normal affect Skin: Present: warm, dry, intact Course Vital Signs Pulse Rate 90 08/23/18 11:35 Respiratory Rate 20 08/23/18 11:35 Pulse Oximetry (%) 94 08/23/18 11:35 Pulse Rate 81 08/23/18 13:31 Respiratory Rate 17 08/23/18 12:31 Blood Pressure 122/68 08/23/18 13:31 Pulse Oximetry (%) 92 08/23/18 13:31 Chest Pain - MDM Narrative Medical decision making narrative: This patient appears to have a UTI and possible sepsis given her high white count is slightly elevated lactic acid. I discussed case with Dr. Barragan and will bring her into the hospital. - Lab Data Lab results reviewed: Yes I reviewed the patient's lab results. Result diagrams: 08/23/18 11:36 08/23/18 11:36 Lab Results 08/23/18 08/23/18 08/23/18 Range/Units 11:36 11:36 11:36 WBC 28.4 H (4.5-11.0) K/mcL RBC 4.44 (4.00-5.20) M/mcL Hgb 12.6 (12.0-15.0) g/dL Hct 38.7 (36.0-48.0) % MCV 87.2 (80.0-100.0) fL MCH 28.5 (26.0-34.0) pg MCHC 32.7 (31.0-36.0) g/dL RDW 16.5 H (11.5-14.5) % Plt Count 464 H (140-440) K/mcL MPV 7.4 (7.4-10.4) fL Gran % 97.4 H (38.0-78.0) % Lymph % (Auto) 0.9 L (15.5-49.0) % [place] % (Auto) 1.7 (1.0-12.0) % Eos % (Auto) 0 (0.0-7.0) % Baso % (Auto) 0 (0.0-2.0) % Gran # 27.6 H (1.8-8.0) K/mcL Lymph # (Auto) 0.3 L (1.5-4.8) K/mcL [place] # (Auto) 0.5 (0.1-0.9) K/mcL Eos # (Auto) 0 (0.0-0.7) K/mcL Baso # (Auto) 0 (0.0-0.3) K/mcL Differential Comment VBG Lactic Acid (0.5-2.0) mmol/L Sodium 128 L (133-145) mmol/L Potassium 4.7 (3.3-5.1) mmol/L Chloride 92 L (96-108) mmol/L Carbon Dioxide 22 (22-30) mmol/L Anion Gap 14.0 (8-16) BUN 17 (8-23) mg/dl Creatinine 1.0 (0.6-1.1) mg/dl GFR Calculation 51 Glucose 140 H (70-105) mg/dL Calcium 9.7 (8.6-10.4) mg/dl Total Bilirubin 0.6 (0.0-1.0) mg/dL AST 239 H (0-37) U/l ALT 207 H (0-40) U/l Alkaline Phosphatase 109 (39-117) U/L Total Creatine Kinase 32 (24-170) IU/L CK-MB (CK-2) < 1.0 (0-2.9) ng/ml Myoglobin 38 (25-58) ng/ml Troponin T < 0.01 (0-0.03) ng/ml NT-Pro-B Natriuret Pep (0-450) pg/ml Total Protein 7.3 (5.9-8.4) gm/dL Albumin 3.8 (3.2-5.2) gm/dL Globulin 3.5 (2.2-3.7) gm/dL Albumin/Globulin Ratio 1.1 (1.0-2.3) Urine Color Urine Appearance Urine pH (5.0-9.0) Ur Specific [place] (1.000-1.035) Urine Protein (NEG) mg/dL Urine Glucose (UA) (NEG) mg/dL Urine Ketones (NEG) mg/dL Urine Occult Blood (<0.03) mg/dL Urine Nitrate (NEG) Urine Bilirubin (NEG) mg/dL Urine Urobilinogen (NEG) mg/dL Ur Leukocyte Esterase (NEG) /uL Urine RBC (0-1) /hpf Urine WBC (0-4) /hpf Ur Squamous Epith Cells (0-4) /hpf Urine Bacteria (0) /hpf Hyaline Casts (0-2) /lpf Urine Mucus (0) /hpf 08/23/18 08/23/18 08/23/18 Range/Units 12:24 12:27 12:48 WBC (4.5-11.0) K/mcL RBC (4.00-5.20) M/mcL Hgb (12.0-15.0) g/dL Hct (36.0-48.0) % MCV (80.0-100.0) fL MCH (26.0-34.0) pg MCHC (31.0-36.0) g/dL RDW (11.5-14.5) % Plt Count (140-440) K/mcL MPV (7.4-10.4) fL Gran % (38.0-78.0) % Lymph % (Auto) (15.5-49.0) % [place] % (Auto) (1.0-12.0) % Eos % (Auto) (0.0-7.0) % Baso % (Auto) (0.0-2.0) % Gran # (1.8-8.0) K/mcL Lymph # (Auto) (1.5-4.8) K/mcL [place] # (Auto) (0.1-0.9) K/mcL Eos # (Auto) (0.0-0.7) K/mcL Baso # (Auto) (0.0-0.3) K/mcL Differential Comment VBG Lactic Acid 2.1 H (0.5-2.0) mmol/L Sodium (133-145) mmol/L Potassium (3.3-5.1) mmol/L Chloride (96-108) mmol/L Carbon Dioxide (22-30) mmol/L Anion Gap (8-16) BUN (8-23) mg/dl Creatinine (0.6-1.1) mg/dl GFR Calculation Glucose (70-105) mg/dL Calcium (8.6-10.4) mg/dl Total Bilirubin (0.0-1.0) mg/dL AST (0-37) U/l ALT (0-40) U/l Alkaline Phosphatase (39-117) U/L Total Creatine Kinase (24-170) IU/L CK-MB (CK-2) (0-2.9) ng/ml Myoglobin (25-58) ng/ml Troponin T (0-0.03) ng/ml NT-Pro-B Natriuret Pep 616.3 H (0-450) pg/ml Total Protein (5.9-8.4) gm/dL Albumin (3.2-5.2) gm/dL Globulin (2.2-3.7) gm/dL Albumin/Globulin Ratio (1.0-2.3) Urine Color [place] Urine Appearance Clear Urine pH 5.0 (5.0-9.0) Ur Specific [place] 1.015 (1.000-1.035) Urine Protein Neg (NEG) mg/dL Urine Glucose (UA) Negative (NEG) mg/dL Urine Ketones Neg (NEG) mg/dL Urine Occult Blood 0.03 A (<0.03) mg/dL Urine Nitrate Pos A (NEG) Urine Bilirubin Neg (NEG) mg/dL Urine Urobilinogen 4.0 A (NEG) mg/dL Ur Leukocyte Esterase 25 A (NEG) /uL Urine RBC 1 (0-1) /hpf Urine WBC 46 H (0-4) /hpf Ur Squamous Epith Cells 1 (0-4) /hpf Urine Bacteria Many A (0) /hpf Hyaline Casts 12 H (0-2) /lpf Urine Mucus Many A (0) /hpf - Radiology Data Radiology results reviewed: Yes I reviewed the patient's radiology results. Disposition Pt seen by BAIL BONDING AGENT/PA only: No Clinical Impression: UTI (urinary tract infection) Disposition: Xfer As Inpt ([facility]) Condition: Fair Referrals: Shaye Noonan MD [Primary Care Provider] - Time of Disposition: 13:57
[2018-08-23] MEDS ORDERED: LACTATED RINGERS 1,000 ML IV SCH (12:00)
[2018-08-23 12:09] LABS: Basophils # (Auto) 0 K/mcL (0.0-0.3); Basophils % (Auto) 0 % (0.0-2.0); Eosinophils # (Auto) 0 K/mcL (0.0-0.7); Eosinophils % (Auto) 0 % (0.0-7.0); Granulocytes % (Auto) 97.4 % (38.0-78.0); Lymphocytes # (Auto) 0.3 K/mcL (1.5-4.8); Lymphocytes % (Auto) 0.9 % (15.5-49.0); Mean Cell Volume 87.2 fL (80.0-100.0); Mean Corpuscular HGB Conc 32.7 g/dL (31.0-36.0); Monocytes # (Auto) 0.5 K/mcL (0.1-0.9); Monocytes % (Auto) 1.7 % (1.0-12.0); Platelet Count 464 K/mcL (140-440); RBC 4.44 M/mcL (4.00-5.20); Red Cell Distribution Width 16.5 % (11.5-14.5)
[2018-08-23 12:38] LABS: Creatine Kinase MB < 1.0 ng/ml (0-2.9); Myoglobin 38 ng/ml (25-58)
[2018-08-23 12:43] LABS: ALT/SGPT 207 U/l (0-40); Albumin 3.8 gm/dL (3.2-5.2); Albumin/Globulin Ratio 1.1 (1.0-2.3); Alkaline Phosphatase 109 U/L (39-117); Blood Urea Nitrogen 17 mg/dl (8-23); Creatine Kinase 32 IU/L (24-170)
[2018-08-23 13:35] LABS: Appearance,Urine CLEAR; Bacteria,Urine MANY /hpf (0); Bilirubin,Urine NEG (NEG); Color,Urine ORANGE; Glucose,Urine (UA) NEGATIVE (NEG); Leukocyte Esterase,Urine 25 /uL (NEG); Mucus,Urine MANY /hpf (0); Protein,Urine NEG (NEG); Specific Gravity,Urine 1.015 (1.000-1.035); Urine Blood 0.03 mg/dL (<0.03); Urine Hyaline Cast 12 /lpf (0-2); Urine RBC 1 /hpf (0-1); Urine Squamous Epithelial Cell 1 /hpf (0-4); Urine WBC 46 /hpf (0-4)
[2018-08-23] MEDS ORDERED: LEVOFLOXACIN 750 MG/150 ML BAG IV ONE (13:56)
--- NOTE | 2018-08-23 14:36 | Internal Med History&Physical ---
Medical - H&P: HPI Patient information: Note initiated : 08/23/18 at 2:33 pm Service Date, if different from initiated Date: [] Patient: Fidelina Blackwell a 87 y/o F admitted on for Chest Pain. Chief Complaint: [] History of present illness: Ms. Blackwell is a 87 year old F with history of dementia, according to daughter wheelchair-bound, lives in preferred care assisted living presents to the emergency room today for evaluation of not feeling well for last 1 day. The patient complained about burning urination or painful urination yesterday, she was seen at the urgent care center yesterday and was diagnosed with a urinary tract infection started on nitrofurantoin. The patient this morning had some nausea vomiting and diarrhea. She had a low-grade temperature and was therefore sent to the hospital for further management. The patient has a history of dementia is unable to provide any meaningful history most of the history is from the daughter. The patient denies any acute complaints or concerns at this time. In the emergency room patient was noted to have a low-grade temperature 100.1 heart rate and blood pressure are stable oxygen saturation is normal. Labs show elevated WBC count at 28.4 hemoglobin 12 platelets 464 lactic acid mildly elevated at 2.1 urinalysis is positive for nitrites sodium 128 potassium 4.7 bicarbonate 22 creatinine 1 glucose 140 AST ALT elevated to 39-207 alk phos is normal at 106 total bilirubin normal 0.6 troponin is -0.01 myoglobin normal at 38 BNP 616. 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 Chest x-ray possible left basilar infiltrate versus atelectasis. EKG is negative for any acute ST-T wave changes Patient is being admitted to the hospital for further management ROS unobtainable: due to mental status Medical - H&P: PM Medical history: Medical History (Last Reviewed 12/21/17 @ 14:22 by Avi Weir PA-C) Hives (Acute) Allergic reaction (Acute) Fall (Acute) DEmentia HTN Recurrent UTI Hydrocephalus. Vertebral fracture Hypothyroidism Depession GERD Surgical history: h/o Back surgeries Pertinent family history: Mother father with DM Father CVA Social history: lives in assisted living no smoking no drugs no etoh Medical - H&P: Meds Home Medications Medication Instructions Recorded Confirmed Type FLUoxetine HCL [Fluoxetine HCl] 40 mg PO DAILY 12/02/16 08/23/18 History Levothyroxine [Synthroid] 100 mcg PO QAMAC 12/02/16 08/23/18 History Memantine [Namenda] 10 mg PO DAILY 12/02/16 08/23/18 History amLODIPine [Norvasc] 2.5 mg PO DAILY 12/02/16 08/23/18 History Ranitidine HCl [Zantac] 300 mg PO DAILY 09/18/17 08/23/18 History Vitamin D3 5,000 unit PO DAILY 12/26/17 08/23/18 History Docusate Sodium [Colace] 100 mg PO BID 03/07/18 08/23/18 History Melatonin [Melatin] 3 mg PO HSP PRN 03/07/18 08/23/18 History Acetaminophen W/Codeine #3 1 tab PO TIDP PRN #10 tab 03/14/18 08/23/18 Rx [Tylenol #3] nitrofurantoin 1 cap PO Q12H 7 Days #14 cap 08/22/18 08/23/18 Rx monohydrate/macrocrystals 100 mg capsule phenazopyridine 200 mg tablet 200 mg PO TID PRN #6 tab 08/22/18 08/23/18 Rx Losartan [Cozaar] 50 mg PO QHS 08/23/18 08/23/18 History Spironolactone [Aldactone] 25 mg PO ONCE 08/23/18 08/23/18 History Allergies Allergy/AdvReac Type Severity Reaction Status Date / Time Sulfa (Sulfonamide Allergy Intermediate Rash Verified 08/22/18 14:46 Antibiotics) Medical - H&P: Exam - Constitutional Vitals: Temp Pulse Resp BP Pulse Ox 100.4 F H 88 22 127/57 94 08/23/18 14:29 08/23/18 14:29 08/23/18 14:29 08/23/18 14:16 08/23/18 14:29 Exam: Constitutional; Afebrile, cooperative, alert, not in distress. Eyes- No icterus, , No periorbital swelling Ears- Ext ear normal, hearing normal to conversation. Neck- Midline trachea, supple Respiratory system: Air Entry equal on both sides, No crackles or wheezing, no rhonchi. CVS- Rate rhythm regular, S1,S2 heard, no gallop, no rub. Abdomen- Soft abdomen, hypogastric tenderness noted. normal bowel sounds. 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, Cranial nerves normal, Medical - H&P: Reslt - Labs CBC & Chem 7: 08/23/18 11:36 08/23/18 11:36 Labs: Short CBC 08/23/18 Range/Units 11:36 WBC 28.4 H (4.5-11.0) K/mcL Hgb 12.6 (12.0-15.0) g/dL Hct 38.7 (36.0-48.0) % Plt Count 464 H (140-440) K/mcL BMP 08/23/18 11:36 Sodium 128 L Potassium 4.7 Chloride 92 L Carbon Dioxide 22 BUN 17 Creatinine 1.0 Glucose 140 H Calcium 9.7 Cardiac Enzymes 08/23/18 08/23/18 Range/Units 11:36 11:36 Total Creatine Kinase 32 (24-170) IU/L CK-MB (CK-2) < 1.0 (0-2.9) ng/ml Troponin T < 0.01 (0-0.03) ng/ml Liver Function 08/23/18 Range/Units 11:36 Total Bilirubin 0.6 (0.0-1.0) mg/dL AST 239 H (0-37) U/l ALT 207 H (0-40) U/l Alkaline Phosphatase 109 (39-117) U/L Albumin 3.8 (3.2-5.2) gm/dL Urine 08/23/18 Range/Units 12:48 Urine Color [place] Urine Appearance Clear Urine pH 5.0 (5.0-9.0) Ur Specific [place] 1.015 (1.000-1.035) Urine Protein Neg (NEG) mg/dL Urine Glucose (UA) Negative (NEG) mg/dL Medical - H&P: A/P - Narrative A/P Narrative: A/P Sepsis Urinary tract infection. Hypertension Hypothyroidism Dementia Hyponatremia Elevated LFT Chronic pain Plan Admit to med surg as inpatient IV rocephin for UTI, follwo cultures, prevouis culture klebsiella sensitive to rocephin. trend lft for now, if trends up get liver usg and send workup IV fluids for sepsis, trend lactic acid. Resume home medications as appropriate Hold bp meds for now, resume once bp is stable x 24 hrs DVT hep sq Diet regular ST/OT/PT eval
--- NOTE | 2018-08-23 14:46 | XRay Report ---
CLINICAL INFORMATION: Chest Pain COMPARISON: 03/07/2018 FINDINGS: Heart size, mediastinum and pulmonary vessels are normal. Minor atelectasis or scarring seen in the left base. The remaining lungs are clear. No effusions. Moderate right diaphragm elevation is chronic. IMPRESSION: Minor left basilar atelectasis. Interpreted and Authenticated by: Oumar Lei 08/23/18
[2018-08-23] MEDS ORDERED: ONDANSETRON 4 MG/2 ML VIAL IV PRN (15:02)
[2018-08-23] MEDS ORDERED: cefTRIAXone 1 GM in DEXTROSE 5% IN WATER 50 ML IV SCH (15:02)
[2018-08-23] MEDS: ACETAMINOPHEN 325 MG TABLET PO PRN (15:17)
[2018-08-23] MEDS: LACTATED RINGERS 1,000 ML IV SCH ×2 (15:17→16:35)
[2018-08-23] MEDS: oxyCODONE HCL 5 MG TABLET PO PRN (16:08)
[2018-08-23] MEDS: cefTRIAXone 1 GM VIAL IV SCH (16:09)
[2018-08-23] MEDS: HEPARIN 5,000 UNIT/ML VIAL SQ SCH (21:00)
[2018-08-23] MEDS: DOCUSATE SODIUM 100 MG CAPSULE PO SCH (21:00)
[2018-08-23] MEDS: FAMOTIDINE 20 MG TABLET PO SCH (21:00)
[2018-08-23] MEDS: 0.9 % SODIUM CHLORIDE 10 ML SYRINGE IV SCH (21:00)
[2018-08-24] MEDS ORDERED: LACTATED RINGERS 1,000 ML IV ONE ×2 (00:19)
[2018-08-24 05:51] LABS: Basophils # (Auto) 0 K/mcL (0.0-0.3); Basophils % (Auto) 0.2 % (0.0-2.0); Eosinophils # (Auto) 0.4 K/mcL (0.0-0.7); Eosinophils % (Auto) 1.9 % (0.0-7.0); Granulocytes % (Auto) 90.8 % (38.0-78.0); Lymphocytes # (Auto) 0.7 K/mcL (1.5-4.8); Lymphocytes % (Auto) 3.6 % (15.5-49.0); Mean Cell Volume 87.3 fL (80.0-100.0); Mean Corpuscular HGB Conc 32.9 g/dL (31.0-36.0); Monocytes # (Auto) 0.7 K/mcL (0.1-0.9); Monocytes % (Auto) 3.5 % (1.0-12.0); Platelet Count 360 K/mcL (140-440); RBC 3.53 M/mcL (4.00-5.20); Red Cell Distribution Width 15.8 % (11.5-14.5)
[2018-08-24] MEDS: 0.9 % SODIUM CHLORIDE 10 ML SYRINGE IV SCH ×3 (06:13→20:39)
[2018-08-24 06:19] LABS: ALT/SGPT 394 U/l (0-40); Albumin 2.7 gm/dL (3.2-5.2); Albumin/Globulin Ratio 0.9 (1.0-2.3); Alkaline Phosphatase 141 U/L (39-117); Bilirubin,Direct 1.2 mg/dL (0.0-0.3); Blood Urea Nitrogen 16 mg/dl (8-23); Gamma Glutamyl Transpeptidase 141 U/L (5-36); Uric Acid 3.2 mg/dL (2.5-8.0)
[2018-08-24] MEDS ORDERED: MAGNESIUM SULFATE 2 GM/50 ML BAG IV ONE (07:46)
[2018-08-24] MEDS: LEVOTHYROXINE 100 MCG TABLET PO SCH (08:51)
[2018-08-24] MEDS: DOCUSATE SODIUM 100 MG CAPSULE PO SCH ×2 (10:44→20:39)
[2018-08-24] MEDS: FLUoxetine HCL 20 MG CAPSULE PO SCH (10:44)
[2018-08-24] MEDS: HEPARIN 5,000 UNIT/ML VIAL SQ SCH ×2 (10:44→20:39)
[2018-08-24] MEDS: MEMANTINE 10 MG TABLET PO SCH (10:44)
--- NOTE | 2018-08-24 11:55 | Ultrasound Report ---
CLINICAL INFORMATION: Increased LFTs COMPARISON: Abdomen CT 10/28/2012 and abdomen ultrasound 01/13/2018 FINDINGS: Liver is mildly unremarkable compatible with fatty changes also seen in 2013 CT. There is a 1.5 cm wedge-shaped hyperechoic lesion in the posterior segment right hepatic lobe compatible with a benign hemangioma. It is unchanged from the CT over five years ago. No significant hepatic lesions. Gallbladder is not identified: It is either contracted or surgically absent. Common bile is normal caliber at 5 mm. The pancreas is normal. There is no free fluid IMPRESSION: Mildly hyperechoic liver compatible with fatty changes also noted on previous CT. 1.5 cm wedge-shaped benign hemangioma posterior segment right hepatic lobe that stable for five years. Gallbladder not identified either severely contracted or surgically absent. Common bile duct and pancreas are normal Interpreted and Authenticated by: Oumar Lei 08/24/18
[2018-08-24] MEDS: VITAMIN D3 400 UNIT TABLET PO SCH (12:34)
[2018-08-24] MEDS: cefTRIAXone 1 GM VIAL IV SCH (12:43)
--- NOTE | 2018-08-24 14:28 | Internal Med Progress Note ---
Medical - PN: Subj Patient information: Note initiated : 08/24/18 at 2:19 pm Service Date, if different from initiated Date: [] Patient: Fidelina Blackwell 87 y/o F admitted on 08/23/18 for Chest Pain. Chief Complaint: [] Interval history: Ms. Blackwell is a 87 year old F with history of dementia, according to daughter wheelchair-bound, lives in preferred care assisted living presents to the emergency room today for evaluation of not feeling well for last 1 day. The patient complained about burning urination or painful urination yesterday, she was seen at the urgent care center yesterday and was diagnosed with a urinary tract infection started on nitrofurantoin. The patient this morning had some nausea vomiting and diarrhea. She had a low-grade temperature and was therefore sent to the hospital for further management. The patient has a history of dementia is unable to provide any meaningful history most of the history is from the daughter. The patient denies any acute complaints or concerns at this time. In the emergency room patient was noted to have a low-grade temperature 100.1 heart rate and blood pressure are stable oxygen saturation is normal. Labs show elevated WBC count at 28.4 hemoglobin 12 platelets 464 lactic acid mildly elevated at 2.1 urinalysis is positive for nitrites sodium 128 potassium 4.7 bicarbonate 22 creatinine 1 glucose 140 AST ALT elevated to 39-207 alk phos is normal at 106 total bilirubin normal 0.6 troponin is -0.01 myoglobin normal at 38 BNP 616. 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 Chest x-ray possible left basilar infiltrate versus atelectasis. EKG is negative for any acute ST-T wave changes Patient is being admitted to the hospital for further management 08/24 Pt seen examined, no acute overnight issues, lactic acidosis resolved pt in bed comfortable, pleasantly confused. ADmits to some pain in the abdomen, but points predominantly lower abdomen. No nausea/vomiting reported today LFT uptrending, t yamil elevated, USG liver is negative, CBD 5MM, Gall bladder absent. Urine culture gram neg bacillus, On rocephin. Wbc trending down. Pertinent ROS: Denies headache, dizziness Denies chest pain, palpitations Denies cough or shortness of breath present, hypogastric abdominal pain, No nausea or vomiting. - Constitutional Vitals: Vital Signs Temp Pulse Resp BP Pulse Ox 98.0 F 80 20 123/60 90 08/24/18 12:00 08/24/18 12:00 08/24/18 12:00 08/24/18 12:00 08/24/18 12:00 Period Temp Pulse Resp BP Sys/Bacon Pulse Ox Last 24 Hr 98.0 F-100.4 F 80-101 16-27 90-128/50-72 90-95 Intake and Output 08/24/18 08/24/18 08/24/18 05:59 13:59 21:59 Intake Total 100 / 100 1050 / 1050 Output Total 300 / 300 Balance -200 / -200 1050 / 1050 Intake & Output: Intake & Output 08/24/18 08/24/18 08/24/18 05:59 13:59 21:59 Intake Total 100 / 100 1050 / 1050 Output Total 300 / 300 Balance -200 / -200 1050 / 1050 Intake: IV 1050 / 1050 Lactated Ringers 1,000 ml @ 1000 / 1000 Wide Open IV BOLUS ONE Rx#: [id number] Oral 100 / 100 Output: Urine Catheter Amount 300 / 300 Other: Urine Appearance Clear Urine Color Dark [place] Urine Odor Strong Exam: Constitutional; Afebrile, cooperative, alert, not in distress. Respiratory system: Air Entry equal on both sides, No crackles or wheezing, no rhonchi. CVS- Rate rhythm regular, S1,S2 heard, no gallop, no rub. Abdomen- Soft hypogastric tender abdomen no rebound, no organomegaly, no guarding or rigidity, RUNNER WORKER- AOOx3, moving all extremities, Medical - PN: Obj Da - Labs CBC & Chem 7: 08/24/18 04:20 08/24/18 04:20 Labs: Abnormal Lab Results 08/24/18 08/24/18 08/23/18 04:20 04:20 17:55 WBC 19.4 H RBC 3.53 L Hgb 10.1 L Hct 30.8 L RDW 15.8 H Plt Count Gran % 90.8 H Lymph % (Auto) 3.6 L Gran # 17.6 H Lymph # (Auto) 0.7 L VBG Lactic Acid 3.1 H Sodium 130 L Chloride Glucose Phosphorus 2.4 L Magnesium 1.5 L Total Bilirubin 1.5 H Direct Bilirubin 1.2 H GGT 141 H AST 259 H ALT 394 H Alkaline Phosphatase 141 H Lactate Dehydrogenase 291 H NT-Pro-B Natriuret Pep Total Protein 5.6 L Albumin 2.7 L Albumin/Globulin Ratio 0.9 L Urine Occult Blood Urine Nitrate Urine Urobilinogen Ur Leukocyte Esterase Urine WBC Urine Bacteria Hyaline Casts Urine Mucus 08/23/18 08/23/18 08/23/18 12:48 12:27 12:24 WBC RBC Hgb Hct RDW Plt Count Gran % Lymph % (Auto) Gran # Lymph # (Auto) VBG Lactic Acid 2.1 H Sodium Chloride Glucose Phosphorus Magnesium Total Bilirubin Direct Bilirubin GGT AST ALT Alkaline Phosphatase Lactate Dehydrogenase NT-Pro-B Natriuret Pep 616.3 H Total Protein Albumin Albumin/Globulin Ratio Urine Occult Blood 0.03 A Urine Nitrate Pos A Urine Urobilinogen 4.0 A Ur Leukocyte Esterase 25 A Urine WBC 46 H Urine Bacteria Many A Hyaline Casts 12 H Urine Mucus Many A 08/23/18 08/23/18 11:36 11:36 WBC 28.4 H RBC Hgb Hct RDW 16.5 H Plt Count 464 H Gran % 97.4 H Lymph % (Auto) 0.9 L Gran # 27.6 H Lymph # (Auto) 0.3 L VBG Lactic Acid Sodium 128 L Chloride 92 L Glucose 140 H Phosphorus Magnesium Total Bilirubin Direct Bilirubin GGT AST 239 H ALT 207 H Alkaline Phosphatase Lactate Dehydrogenase NT-Pro-B Natriuret Pep Total Protein Albumin Albumin/Globulin Ratio Urine Occult Blood Urine Nitrate Urine Urobilinogen Ur Leukocyte Esterase Urine WBC Urine Bacteria Hyaline Casts Urine Mucus Meds: Medications Acetaminophen (Tylenol) 650 mg PO Q6HP PRN PRN Reason: PAIN/FEVER > 101 Last Admin: 08/23/18 15:17 Dose: 650 mg Albuterol Sulfate (Ventolin) 2.5 mg NEB Q2HP PRN PRN Reason: Shortness Of Breath Ceftriaxone Sodium (Rocephin) 1 gm IV Q24H [facility] Last Admin: 08/24/18 12:43 Dose: 1 gm Docusate Sodium (Colace) 100 mg PO BID [facility] Last Admin: 08/24/18 10:44 Dose: 100 mg Famotidine (Pepcid) 20 mg PO HS [facility] Last Admin: 08/23/18 21:00 Dose: 20 mg Fluoxetine HCl (Prozac) 40 mg PO DAILY [facility] Last Admin: 08/24/18 10:44 Dose: 40 mg Heparin Sodium (Porcine) (Heparin) 5,000 unit SQ Q12 [facility] Last Admin: 08/24/18 10:44 Dose: 5,000 unit Levothyroxine Sodium (Synthroid) 100 mcg PO QAMAC [facility] Last Admin: 08/24/18 08:51 Dose: 100 mcg Memantine (Namenda) 10 mg PO DAILY [facility] Last Admin: 08/24/18 10:44 Dose: 10 mg Ondansetron HCl (Zofran) 4 mg IV Q6HP PRN PRN Reason: Nausea And Vomiting Oxycodone HCl (Roxicodone) 5 mg PO Q4HP PRN PRN Reason: pain not responding to tylenol Last Admin: 08/23/18 16:08 Dose: 5 mg Sodium Chloride (Saline Flush) 10 ml IV Q8 [facility] Last Admin: 08/24/18 06:13 Dose: 10 ml Vitamin D (Vitamin D3) 5,000 unit PO DAILY [facility] Last Admin: 08/24/18 12:34 Dose: Not Given Medical - PN: A/P - Time Spent With Patient Total time spent is greater than 50% in coordination of care (as documented) at patient's floor/unit and/or counseling patient: - Narrative A/P Narrative: A/P Sepsis Urinary tract infection. Hypertension Hypothyroidism Dementia Hyponatremia Elevated LFT Chronic pain Plan Wbc trending down, urine culture shows gram neg bacillus, pt on rocephin lactic acidosis resolved Hyponatremia improving, monitor. LFT trending up, USG neg, likely releated to sepsis, if worsens, will get CT Abdomen and pelvis. Resume home medications as appropriate Hold bp meds for now, resume once bp is stable x 24 hrs DVT hep sq Diet regular ST/OT/PT eval Medical - PN: Qual - VTE Deep Vein Thrombosis/Pulmonary Embolism Present on Admission: No
[2018-08-24] MEDS: ALBUTEROL SULFATE 2.5 MG/3 ML NEBULIZER NEB PRN (18:44)
[2018-08-24] MEDS: FAMOTIDINE 20 MG TABLET PO SCH (20:39)
[2018-08-25] MEDS: ALBUTEROL SULFATE 2.5 MG/3 ML NEBULIZER NEB PRN (00:45)
[2018-08-25] MEDS: 0.9 % SODIUM CHLORIDE 10 ML SYRINGE IV SCH ×2 (04:37→15:41)
[2018-08-25] MEDS: ACETAMINOPHEN 325 MG TABLET PO PRN (04:38)
[2018-08-25] MEDS: oxyCODONE HCL 5 MG TABLET PO PRN (04:38)
[2018-08-25 05:55] LABS: Basophils # (Auto) 0 K/mcL (0.0-0.3); Basophils % (Auto) 0.1 % (0.0-2.0); Eosinophils # (Auto) 0.5 K/mcL (0.0-0.7); Eosinophils % (Auto) 3.8 % (0.0-7.0); Granulocytes % (Auto) 85.5 % (38.0-78.0); Lymphocytes # (Auto) 0.9 K/mcL (1.5-4.8); Lymphocytes % (Auto) 6.7 % (15.5-49.0); Mean Cell Volume 85.9 fL (80.0-100.0); Mean Corpuscular HGB Conc 33.5 g/dL (31.0-36.0); Monocytes # (Auto) 0.5 K/mcL (0.1-0.9); Monocytes % (Auto) 3.9 % (1.0-12.0); Platelet Count 344 K/mcL (140-440); RBC 3.32 M/mcL (4.00-5.20); Red Cell Distribution Width 16.7 % (11.5-14.5)
[2018-08-25 06:35] LABS: ALT/SGPT 233 U/l (0-40); Albumin 2.7 gm/dL (3.2-5.2); Albumin/Globulin Ratio 0.9 (1.0-2.3); Alkaline Phosphatase 143 U/L (39-117); Bilirubin,Direct < 0.2 mg/dL (0.0-0.3); Blood Urea Nitrogen 11 mg/dl (8-23); Gamma Glutamyl Transpeptidase 148 U/L (5-36); Uric Acid 2.7 mg/dL (2.5-8.0)
[2018-08-25] MEDS: LEVOTHYROXINE 100 MCG TABLET PO SCH (07:50)
[2018-08-25] MEDS: cefTRIAXone 1 GM VIAL IV SCH (09:18)
[2018-08-25] MEDS: FLUoxetine HCL 20 MG CAPSULE PO SCH (09:19)
[2018-08-25] MEDS: DOCUSATE SODIUM 100 MG CAPSULE PO SCH ×2 (09:19→21:05)
[2018-08-25] MEDS: HEPARIN 5,000 UNIT/ML VIAL SQ SCH ×2 (09:19→21:05)
[2018-08-25] MEDS: MEMANTINE 10 MG TABLET PO SCH (09:19)
[2018-08-25] MEDS: VITAMIN D3 400 UNIT TABLET PO SCH (10:21)
--- NOTE | 2018-08-25 12:24 | Internal Med Progress Note ---
Medical - PN: Subj Patient information: Note initiated : 08/25/18 at 12:22 pm Service Date, if different from initiated Date: [] Patient: Fidelina Blackwell 87 y/o F admitted on 08/23/18 for Chest Pain. Chief Complaint: [] Interval history: Ms. Blackwell is a 87 year old F with history of dementia, according to daughter wheelchair-bound, lives in preferred care assisted living presents to the emergency room today for evaluation of not feeling well for last 1 day. The patient complained about burning urination or painful urination yesterday, she was seen at the urgent care center yesterday and was diagnosed with a urinary tract infection started on nitrofurantoin. The patient this morning had some nausea vomiting and diarrhea. She had a low-grade temperature and was therefore sent to the hospital for further management. The patient has a history of dementia is unable to provide any meaningful history most of the history is from the daughter. The patient denies any acute complaints or concerns at this time. In the emergency room patient was noted to have a low-grade temperature 100.1 heart rate and blood pressure are stable oxygen saturation is normal. Labs show elevated WBC count at 28.4 hemoglobin 12 platelets 464 lactic acid mildly elevated at 2.1 urinalysis is positive for nitrites sodium 128 potassium 4.7 bicarbonate 22 creatinine 1 glucose 140 AST ALT elevated to 39-207 alk phos is normal at 106 total bilirubin normal 0.6 troponin is -0.01 myoglobin normal at 38 BNP 616. 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 Chest x-ray possible left basilar infiltrate versus atelectasis. EKG is negative for any acute ST-T wave changes Patient is being admitted to the hospital for further management 08/24 Pt seen examined, no acute overnight issues, lactic acidosis resolved pt in bed comfortable, pleasantly confused. ADmits to some pain in the abdomen, but points predominantly lower abdomen. No nausea/vomiting reported today LFT uptrending, t yamil elevated, USG liver is negative, CBD 5MM, Gall bladder absent. Urine culture gram neg bacillus, On rocephin. Wbc trending down. 08/25 pt seen examined, sitting comfortably ,having breakfast no complaints or concerns, abdominal pain better lft trending down. urine culture results pending, pt still has a low grade temp Pertinent ROS: Denies headache, dizziness Denies chest pain, palpitations Denies cough or shortness of breath Denies abdominal pain, nausea or vomiting.(resolved abdominal pain) - Constitutional Vitals: Vital Signs Temp Pulse Resp BP Pulse Ox 98.6 F 72 18 128/62 92 08/25/18 12:00 08/25/18 12:00 08/25/18 12:00 08/25/18 12:00 08/25/18 12:00 Period Temp Pulse Resp BP Sys/Bacon Pulse Ox Last 24 Hr 98.2 F-100.1 F 72-84 16-24 117-140/59-62 90-92 Intake and Output 08/24/18 08/25/18 08/25/18 21:59 05:59 13:59 Intake Total 360 / 360 225 / 225 240 / 240 Output Total 600 / 600 1025 / 1025 Balance -240 / -240 -800 / -800 240 / 240 Weight 131 lb Intake & Output: Intake & Output 08/24/18 08/25/18 08/25/18 21:59 05:59 13:59 Intake Total 360 / 360 225 / 225 240 / 240 Output Total 600 / 600 1025 / 1025 Balance -240 / -240 -800 / -800 240 / 240 Weight 131 lb Intake: Oral 360 / 360 225 / 225 240 / 240 Output: Urine Catheter Amount 600 / 600 1025 / 1025 Other: Meal Dinner Breakfast Percent of Meal Consumed 100% 100% Feeding Ability Independent Urine Appearance Clear Clear Uretheral (Last) Clear Clear Urine Color Dark Yellow Bright Yellow Uretheral (Last) Dark Yellow Bright Yellow Stool Size Moderate Stool Color Brown Stool Consistency Formed Exam: Constitutional; Afebrile, cooperative, alert, not in distress. Respiratory system: Air Entry equal on both sides, No crackles or wheezing, no rhonchi. CVS- Rate rhythm regular, S1,S2 heard, no gallop, no rub. 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 Medical - PN: Obj Da - Labs CBC & Chem 7: 08/25/18 03:55 08/25/18 03:55 Labs: Abnormal Lab Results 08/25/18 08/25/18 08/24/18 03:55 03:55 04:20 WBC 12.8 H RBC 3.32 L Hgb 9.5 L Hct 28.5 L RDW 16.7 H Plt Count Gran % 85.5 H Lymph % (Auto) 6.7 L Gran # 11.0 H Lymph # (Auto) 0.9 L VBG Lactic Acid Sodium 132 L 130 L Chloride Glucose Phosphorus 2.4 L Magnesium 1.5 L Total Bilirubin 1.5 H Direct Bilirubin 1.2 H GGT 148 H 141 H AST 73 H 259 H ALT 233 H 394 H Alkaline Phosphatase 143 H 141 H Lactate Dehydrogenase 291 H NT-Pro-B Natriuret Pep Total Protein 5.8 L 5.6 L Albumin 2.7 L 2.7 L Albumin/Globulin Ratio 0.9 L 0.9 L Urine Occult Blood Urine Nitrate Urine Urobilinogen Ur Leukocyte Esterase Urine WBC Urine Bacteria Hyaline Casts Urine Mucus 08/24/18 08/23/18 08/23/18 04:20 17:55 12:48 WBC 19.4 H RBC 3.53 L Hgb 10.1 L Hct 30.8 L RDW 15.8 H Plt Count Gran % 90.8 H Lymph % (Auto) 3.6 L Gran # 17.6 H Lymph # (Auto) 0.7 L VBG Lactic Acid 3.1 H Sodium Chloride Glucose Phosphorus Magnesium Total Bilirubin Direct Bilirubin GGT AST ALT Alkaline Phosphatase Lactate Dehydrogenase NT-Pro-B Natriuret Pep Total Protein Albumin Albumin/Globulin Ratio Urine Occult Blood 0.03 A Urine Nitrate Pos A Urine Urobilinogen 4.0 A Ur Leukocyte Esterase 25 A Urine WBC 46 H Urine Bacteria Many A Hyaline Casts 12 H Urine Mucus Many A 08/23/18 08/23/18 08/23/18 12:27 12:24 11:36 WBC RBC Hgb Hct RDW Plt Count Gran % Lymph % (Auto) Gran # Lymph # (Auto) VBG Lactic Acid 2.1 H Sodium 128 L Chloride 92 L Glucose 140 H Phosphorus Magnesium Total Bilirubin Direct Bilirubin GGT AST 239 H ALT 207 H Alkaline Phosphatase Lactate Dehydrogenase NT-Pro-B Natriuret Pep 616.3 H Total Protein Albumin Albumin/Globulin Ratio Urine Occult Blood Urine Nitrate Urine Urobilinogen Ur Leukocyte Esterase Urine WBC Urine Bacteria Hyaline Casts Urine Mucus 08/23/18 11:36 WBC 28.4 H RBC Hgb Hct RDW 16.5 H Plt Count 464 H Gran % 97.4 H Lymph % (Auto) 0.9 L Gran # 27.6 H Lymph # (Auto) 0.3 L VBG Lactic Acid Sodium Chloride Glucose Phosphorus Magnesium Total Bilirubin Direct Bilirubin GGT AST ALT Alkaline Phosphatase Lactate Dehydrogenase NT-Pro-B Natriuret Pep Total Protein Albumin Albumin/Globulin Ratio Urine Occult Blood Urine Nitrate Urine Urobilinogen Ur Leukocyte Esterase Urine WBC Urine Bacteria Hyaline Casts Urine Mucus Meds: Medications Acetaminophen (Tylenol) 650 mg PO Q6HP PRN PRN Reason: PAIN/FEVER > 101 Last Admin: 08/25/18 04:38 Dose: 650 mg Albuterol Sulfate (Ventolin) 2.5 mg NEB Q2HP PRN PRN Reason: Shortness Of Breath Last Admin: 08/25/18 00:45 Dose: 2.5 mg Ceftriaxone Sodium (Rocephin) 1 gm IV Q24H [facility] Last Admin: 08/25/18 09:18 Dose: 1 gm Docusate Sodium (Colace) 100 mg PO BID [facility] Last Admin: 08/25/18 09:19 Dose: 100 mg Famotidine (Pepcid) 20 mg PO HS [facility] Last Admin: 08/24/18 20:39 Dose: 20 mg Fluoxetine HCl (Prozac) 40 mg PO DAILY [facility] Last Admin: 08/25/18 09:19 Dose: 40 mg Heparin Sodium (Porcine) (Heparin) 5,000 unit SQ Q12 [facility] Last Admin: 08/25/18 09:19 Dose: 5,000 unit Levothyroxine Sodium (Synthroid) 100 mcg PO QAMAC [facility] Last Admin: 08/25/18 07:50 Dose: 100 mcg Memantine (Namenda) 10 mg PO DAILY [facility] Last Admin: 08/25/18 09:19 Dose: 10 mg Ondansetron HCl (Zofran) 4 mg IV Q6HP PRN PRN Reason: Nausea And Vomiting Oxycodone HCl (Roxicodone) 5 mg PO Q4HP PRN PRN Reason: pain not responding to tylenol Last Admin: 08/25/18 04:38 Dose: 5 mg Sodium Chloride (Saline Flush) 10 ml IV Q8 [facility] Last Admin: 08/25/18 04:37 Dose: 10 ml Vitamin D (Vitamin D3) 5,000 unit PO DAILY [facility] Last Admin: 08/25/18 10:21 Dose: 5,000 unit Medical - PN: A/P - Time Spent With Patient Total time spent is greater than 50% in coordination of care (as documented) at patient's floor/unit and/or counseling patient: - Narrative A/P Narrative: A/P Sepsis Urinary tract infection. Hypertension Hypothyroidism Dementia Hyponatremia Elevated LFT Chronic pain Plan Wbc trending down, urine culture shows gram neg bacillus, pt on rocephin, await sensitivities. lactic acidosis resolved Hyponatremia improving, monitor. LFT trending down now, likely related to sepsis. Resume home medications as appropriate DVT hep sq Diet regular ST/OT/PT eval Medical - PN: Qual - VTE Deep Vein Thrombosis/Pulmonary Embolism Present on Admission: No
[2018-08-25] MEDS: FAMOTIDINE 20 MG TABLET PO SCH (21:05)
[2018-08-26 05:44] LABS: Basophils # (Auto) 0 K/mcL (0.0-0.3); Basophils % (Auto) 0.4 % (0.0-2.0); Eosinophils # (Auto) 0.8 K/mcL (0.0-0.7); Eosinophils % (Auto) 8.3 % (0.0-7.0); Granulocytes % (Auto) 72.6 % (38.0-78.0); Lymphocytes # (Auto) 1.3 K/mcL (1.5-4.8); Lymphocytes % (Auto) 12.8 % (15.5-49.0); Mean Cell Volume 85.5 fL (80.0-100.0); Mean Corpuscular HGB Conc 34.6 g/dL (31.0-36.0); Monocytes # (Auto) 0.6 K/mcL (0.1-0.9); Monocytes % (Auto) 5.9 % (1.0-12.0); Platelet Count 381 K/mcL (140-440); RBC 3.55 M/mcL (4.00-5.20); Red Cell Distribution Width 16.2 % (11.5-14.5)
[2018-08-26 06:07] LABS: ALT/SGPT 163 U/l (0-40); Albumin 3.2 gm/dL (3.2-5.2); Alkaline Phosphatase 136 U/L (39-117); Bilirubin,Direct < 0.2 mg/dL (0.0-0.3); Blood Urea Nitrogen 13 mg/dl (8-23); Gamma Glutamyl Transpeptidase 147 U/L (5-36); Uric Acid 2.4 mg/dL (2.5-8.0)
[2018-08-26] MEDS ORDERED: VITAMIN D3 5,000 UNIT CAPSULE PO SCH (09:00)
--- NOTE | 2018-08-26 09:24 | Discharge Summary ---
Medical - DS: Prov Patient information: Note initiated : 08/26/18 at 9:17 am Service Date, if different from initiated Date: [] Patient: Fidelina Blackwell 87 y/o F admitted on 08/23/18 for Chest Pain. Chief Complaint: [] Date of admission: 08/23/18 14:50 Discharge date: 08/26/18 Primary care physician: Shaye Noonan Consults: 08/23/18 13:54 Consult to Physician [CONS] Stat Comment: Consulting Provider: Miki Barragan Reason For Exam: Physician to Consult Discharging clinician: Miki Barragan Medical - DS: Meds - Discharge Medications Prescriptions: Cephalexin [Keflex] 500 mg PO BID #14 cap Active and Home Medications: Home Medications FLUoxetine HCL [Fluoxetine HCl] 40 mg PO DAILY 12/02/16 [History Confirmed 08/23 Last Taken 03/07/18 07:00] Levothyroxine [Synthroid] 100 mcg PO QAMAC 12/02/16 [History Confirmed 08/23/18 Last Taken 03/07/18 05:08] Memantine [Namenda] 10 mg PO DAILY 12/02/16 [History Confirmed 08/23/18 Last Taken 03/07/18 07:00] amLODIPine [Norvasc] 2.5 mg PO DAILY 12/02/16 [History Confirmed 08/23/18 Last Taken 03/07/18 11:43] Ranitidine HCl [Zantac] 300 mg PO DAILY 09/18/17 [History Confirmed 08/23/18 Last Taken 03/07/18 07:00] Vitamin D3 5,000 unit PO DAILY 12/26/17 [History Confirmed 08/23/18 Last Taken 03/07/18 07:00] Docusate Sodium [Colace] 100 mg PO BID 03/07/18 [History Confirmed 08/23/18 Last Taken 03/06/18] Melatonin [Melatin] 5 mg PO HSP PRN 03/07/18 [History Confirmed 08/23/18 Last Taken 03/05/18 08:41] Acetaminophen W/Codeine #3 [Tylenol #3] 1 tab PO TIDP PRN #10 tab 03/14/18 [Rx Confirmed 08/23/18 Last Taken Unknown] nitrofurantoin monohydrate/macrocrystals 100 mg capsule 1 cap PO Q12H 7 Days # 14 cap 08/22/18 [Rx Confirmed 08/23/18 Last Taken Unknown] phenazopyridine 200 mg tablet 200 mg PO TID PRN #6 tab 08/22/18 [Rx Confirmed Last Taken Unknown] Losartan [Cozaar] 50 mg PO BID 08/23/18 [History Confirmed 08/23/18 Last Taken Unknown] Spironolactone [Aldactone] 25 mg PO DAILY 08/23/18 [History Confirmed 08/23/18 Last Taken Unknown] diphenhydrAMINE [Benadryl] 25 mg PO BIDP PRN 08/23/18 [History Confirmed Last Taken Unknown] Medical - DS: Hosp Hospital course: Ms. Blackwell is a 87 year old F with history of dementia, according to daughter wheelchair-bound, lives in preferred care assisted living presents to the emergency room today for evaluation of not feeling well for last 1 day. The patient complained about burning urination or painful urination yesterday, she was seen at the urgent care center yesterday and was diagnosed with a urinary tract infection started on nitrofurantoin. The patient this morning had some nausea vomiting and diarrhea. She had a low-grade temperature and was therefore sent to the hospital for further management. The patient has a history of dementia is unable to provide any meaningful history most of the history is from the daughter. The patient denies any acute complaints or concerns at this time. In the emergency room patient was noted to have a low-grade temperature 100.1 heart rate and blood pressure are stable oxygen saturation is normal. Labs show elevated WBC count at 28.4 hemoglobin 12 platelets 464 lactic acid mildly elevated at 2.1 urinalysis is positive for nitrites sodium 128 potassium 4.7 bicarbonate 22 creatinine 1 glucose 140 AST ALT elevated to 39-207 alk phos is normal at 106 total bilirubin normal 0.6 troponin is -0.01 myoglobin normal at 38 BNP 616. 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 Chest x-ray possible left basilar infiltrate versus atelectasis. EKG is negative for any acute ST-T wave changes Patient is being admitted to the hospital for further management 08/24 Pt seen examined, no acute overnight issues, lactic acidosis resolved pt in bed comfortable, pleasantly confused. ADmits to some pain in the abdomen, but points predominantly lower abdomen. No nausea/vomiting reported today LFT uptrending, t yamil elevated, USG liver is negative, CBD 5MM, Gall bladder absent. Urine culture gram neg bacillus, On rocephin. Wbc trending down. 08/25 pt seen examined, sitting comfortably ,having breakfast no complaints or concerns, abdominal pain better lft trending down. urine culture results pending, pt still has a low grade temp 08/26 Pt seen examined, no acute overnight events, no new complaints or concerns labs stable, afebrile since yesterday, lft trending down urine culture, klebsiella sensitive to keflex, will d/c on same for another 7 days. In Summary: Patient presented to the hospital with UTI and Sepsis with lactic acidosis. Blood cultures were negative. Urine cultures positive for klebsiella She was initially treated with rocephin with good response. She will be dischaged on oral keflex for another 7 days. No other changes made to her chronic home medication list. Discharge diagnosis: Urosepsis - Time Spent with Patient Total time spent providing and/or coordinating discharge services: Less than 30 minutes Medical - DS: Exam - Constitutional Vitals: Vital Signs Temp Pulse Resp BP BP Pulse Ox 08/26/18 06:53 97.4 F 20 142/78 93 08/26/18 04:00 98.1 F 70 18 136/64 94 08/25/18 23:38 97.7 F 81 18 142/70 92 08/25/18 19:13 97.8 F 73 16 130/62 95 08/25/18 15:34 98.2 F 76 20 152/75 95 08/25/18 12:00 98.6 F 72 18 128/62 92 Intake and Output 08/25/18 08/26/18 08/26/18 21:59 05:59 13:59 Intake Total 600 / 600 200 / 200 300 / 300 Output Total 1226 / 1226 3 / 3 Balance -626 / -626 197 / 197 300 / 300 Intake: Oral 600 / 600 200 / 200 300 / 300 Output: Urine Catheter Amount 1025 / 1025 Void Amount 200 / 200 1 / # of times incontinent of urine 2 / 2 Other: Meal Dinner Breakfast Percent of Meal Consumed 100% 100% Feeding Ability Independent Assist with Tray Set Up Urine Appearance Clear Clear Urine Color Bright Yellow Bright Yellow # Voids 1 Weight 124 lb Additional comments: Constitutional; Afebrile, cooperative, alert, not in distress. Respiratory system: Air Entry equal on both sides, No crackles or wheezing, no rhonchi. CVS- Rate rhythm regular, S1,S2 heard, no gallop, no rub. 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 Medical - DS: Data Labs on day of discharge: Labs from last 24 hours 08/26/18 08/26/18 04:25 04:25 WBC 10.0 RBC 3.55 L Hgb 10.5 L Hct 30.4 L MCV 85.5 MCH 29.6 MCHC 34.6 RDW 16.2 H Plt Count 381 MPV 8.0 Gran % 72.6 Lymph % (Auto) 12.8 L [place] % (Auto) 5.9 Eos % (Auto) 8.3 H Baso % (Auto) 0.4 Gran # 7.3 Lymph # (Auto) 1.3 L [place] # (Auto) 0.6 Eos # (Auto) 0.8 H Baso # (Auto) 0 Sodium 133 Potassium 3.6 Chloride 100 Carbon Dioxide 23 Anion Gap 10.0 BUN 13 Creatinine 0.5 L GFR Calculation 88 Glucose 102 Uric Acid 2.4 L Calcium 9.2 Phosphorus 3.4 Magnesium 1.6 Total Bilirubin 0.3 Direct Bilirubin < 0.2 GGT 147 H AST 28 ALT 163 H Alkaline Phosphatase 136 H Lactate Dehydrogenase 148 Total Protein 6.3 Albumin 3.2 Globulin 3.1 Albumin/Globulin Ratio 1.0 Triglycerides 96 Preliminary micro results at discharge 08/23/18 13:00 Blood Culture - Preliminary Blood 08/23/18 12:55 Blood Culture - Preliminary Blood Medical - DS: A/P - Patient/Caregiver Discharge Instructions Activity: increase activity as tolerated Diet: Regular Diet Additional Instructions: Take Cephalexin 500mg twice daily for another 7 days Follow up with PCP in 1 week Go to the ER for worsening symptoms, fever, chest pain, shortness of breath or any other acute concern. - Follow up Plan Follow up with: Shaye Noonan MD [Primary Care Provider] - (Please call/schedule hospital follow up.) Disposition: Home Health Service Prognosis: Fair Rehab Potential: Fair I certify that the patient requires SNF services: No Overall status at discharge: patient is progressing back to baseline Medical - DS: Qual - VTE Deep Vein Thrombosis/Pulmonary Embolism Present on Admission: No
[2018-08-26] MEDS: DOCUSATE SODIUM 100 MG CAPSULE PO SCH (09:33)
[2018-08-26] MEDS: MEMANTINE 10 MG TABLET PO SCH (09:33)
[2018-08-26] MEDS: LEVOTHYROXINE 100 MCG TABLET PO SCH (09:33)
[2018-08-26] MEDS: FLUoxetine HCL 20 MG CAPSULE PO SCH (09:33)
[2018-08-26] MEDS: 0.9 % SODIUM CHLORIDE 10 ML SYRINGE IV SCH ×2 (09:34)
[2018-08-26] MEDS: cefTRIAXone 1 GM VIAL IV SCH (09:34)
[2018-08-26] MEDS: HEPARIN 5,000 UNIT/ML VIAL SQ SCH (09:34)
== END 2018-08-26 10:40 | disposition home health service (06) | DRG 872 ==
LOC: ED 11:35 → MEDSUR 14:50
PROVIDERS: ADMIT Internal Medicine; ATTEND Internal Medicine

== ENCOUNTER 2019-02-12 11:46 | Inpatient (IN) ==
[2019-02-12] MEDS ORDERED: PHENobarb/HYOSCY/ATROPINE/SCOP 1 DOSE BOTTLE PO ONE (11:55)
[2019-02-12 12:47] LABS: Basophils # (Auto) 0.1 K/mcL (0.0-0.3); Basophils % (Auto) 0.6 % (0.0-2.0); Eosinophils # (Auto) 1.7 K/mcL (0.0-0.7); Eosinophils % (Auto) 17.3 % (0.0-7.0); Granulocytes % (Auto) 53.9 % (38.0-78.0); Hematocrit 37.8 % (36.0-48.0); Hemoglobin 12.6 g/dL (12.0-15.0); Lymphocytes % (Auto) 20.6 % (15.5-49.0); Mean Corpuscular HGB Conc 33.4 g/dL (31.0-36.0); Mean Platelet Volume 7.4 fL (7.4-10.4); Monocytes # (Auto) 0.7 K/mcL (0.1-0.9); Monocytes % (Auto) 7.6 % (1.0-12.0); Platelet Count 500 K/mcL (140-440); RBC 4.29 M/mcL (4.00-5.20); Red Cell Distribution Width 14.6 % (11.5-14.5); WBC 9.7 K/mcL (4.5-11.0)
[2019-02-12 13:14] LABS: ALT/SGPT 15 U/l (0-40); AST/SGOT 15 U/l (0-37); Albumin 4.2 gm/dL (3.2-5.2); Albumin/Globulin Ratio 1.2 (1.0-2.3); Alkaline Phosphatase 90 U/L (39-117); Bilirubin,Total 0.3 mg/dL (0.0-1.0); Blood Urea Nitrogen 11 mg/dl (8-23); Calcium 9.2 mg/dl (8.6-10.4); Carbon Dioxide 24 mmol/L (22-30); Chloride 86 mmol/L (96-108); Creatine Kinase 33 IU/L (24-170); Creatine Kinase MB 1.2 ng/ml (0-2.9); Globulin 3.5 gm/dL (2.2-3.7); Glomerular Filtration Rate 78; Glucose 87 mg/dL (70-105); Lipase 50 U/L (7-60); Myoglobin < 25 ng/ml (25-58); Potassium 4.9 mmol/L (3.3-5.1); Sodium 121 mmol/L (133-145)
--- NOTE | 2019-02-12 14:38 | Emergency Department Note ---
Chest Pain HPI - General Chief Complaint: Chest Pain Stated Complaint: Intremittent L chest pain Time Seen by Provider: 02/12/19 11:54 Source: patient, family Mode of arrival: ambulatory - History of Present Illness HPI Narrative: 88-year-old female presents with intermittent chest pain for the last 3 days. Is a sharp stabbing type pain that comes once in a while and lasts a few seconds to a few minutes at a time under the left breast. States this also feels like acid reflux. It does go completely away and then comes back. If she pushes on this area it is also tender to palpation. No rash. No fever chills. No nausea, vomiting, or diarrhea. Patient has dementia. Daughter is with her. States she is a poor historian and often worries about things and has attention seeking behavior so she is not sure if there is something real going on or she is trying to get attention. However the patient states she does have some pain now that feels like acid reflux. Nothing seems to make it better but it is get worse does get worse if she pushes on the area. Associated symptoms: Denies: nausea, vomiting, diaphoresis, dyspnea, syncope, palpitations, fever, cough, leg swelling Treatments prior to arrival chest pain: none - Related Data Home Medications Medication Instructions Recorded Confirmed FLUoxetine HCL [Fluoxetine HCl] 40 mg PO DAILY 12/02/16 02/12/19 Levothyroxine [Synthroid] 100 mcg PO QAMAC 12/02/16 02/12/19 Memantine [Namenda] 10 mg PO DAILY 12/02/16 02/12/19 amLODIPine [Norvasc] 2.5 mg PO DAILY 12/02/16 02/12/19 Ranitidine HCl [Zantac] 300 mg PO DAILY 09/18/17 02/12/19 Vitamin D3 5,000 unit PO DAILY 12/26/17 02/12/19 Docusate Sodium [Colace] 100 mg PO BID 03/07/18 02/12/19 Melatonin [Melatin] 5 mg PO HSP PRN 03/07/18 02/12/19 Losartan [Cozaar] 50 mg PO BID 08/23/18 02/12/19 Spironolactone [Aldactone] 25 mg PO DAILY 08/23/18 02/12/19 diphenhydrAMINE [Benadryl] 25 mg PO BIDP PRN 08/23/18 02/12/19 Acetaminophen W/Codeine #3 1 tab PO TID PRN 02/12/19 02/12/19 [Tylenol #3] Amoxicillin/Potassium Clav 875 mg PO Q12H 02/12/19 02/12/19 [Augmentin] Allergies Allergy/AdvReac Type Severity Reaction Status Date / Time Sulfa (Sulfonamide Allergy Intermediate Rash Verified 02/12/19 11:51 Antibiotics) Review of Systems All systems ED: reviewed and negative except as stated. Chest Pain PMH - Past Medical History [facility] Narrative: Medical History (Last Reviewed 08/24/18 @ 07:27 by Alexsandra Christiansen PA-C) Hives (Acute) Allergic reaction (Acute) Fall (Acute) Medical history: Reports: dementia, GERD, hypertension, thyroid disease, other (urinary incontinence) Psychiatric history: Reports: depression - Social History smoking status: Never smoker Alcohol use: Reports: None Drug use: Reports: none Physical Exam General appearance: alert (Alert, pleasant and cooperative but very forgetful at times.) Head: atraumatic, normocephalic, normal inspection Eye: Present: normal appearance. Absent: conjunctival injection ENT: mucous membranes moist Neck: Present: normal inspection, trachea midline. Absent: tenderness, lymphadenopathy Chest: Present: symmetric chest wall rise Respiratory: Present: normal lung sounds bilaterally. Absent: respiratory distress, rales/crackles, accessory muscle use Cardiovascular: Present: regular rate, normal rhythm, normal heart sounds Abdominal: Present: soft, normal bowel sounds. Absent: distention, tenderness, guarding, mass Extremities: Present: normal capillary refill Neurological: Present: alert Psychiatric: Present: normal affect, normal mood Skin: Present: warm, dry, intact, normal color Course Course Narrative: At [address] I did speak with Dr. Burns, hospitalist who agrees to accept this patient. Vital Signs Temperature 97.2 F 02/12/19 11:47 Pulse Rate 71 02/12/19 11:47 Respiratory Rate 16 02/12/19 11:47 Blood Pressure 157/73 02/12/19 11:47 Pulse Oximetry (%) 98 02/12/19 11:47 Temperature 97.2 F 02/12/19 11:47 Pulse Rate 61 02/12/19 13:31 Respiratory Rate 14 02/12/19 13:31 Blood Pressure 167/66 02/12/19 13:31 Pulse Oximetry (%) 98 02/12/19 13:31 Chest Pain - Lab Data Lab results reviewed: Yes I reviewed the patient's lab results. Result diagrams: 02/12/19 12:01 02/12/19 12:01 Lab Results 02/12/19 02/12/19 02/12/19 Range/Units 12:01 12:01 12:01 WBC 9.7 (4.5-11.0) K/mcL RBC 4.29 (4.00-5.20) M/mcL Hgb 12.6 (12.0-15.0) g/dL Hct 37.8 (36.0-48.0) % MCV 88.0 (80.0-100.0) fL MCH 29.4 (26.0-34.0) pg MCHC 33.4 (31.0-36.0) g/dL RDW 14.6 H (11.5-14.5) % Plt Count 500 H (140-440) K/mcL MPV 7.4 (7.4-10.4) fL Gran % 53.9 (38.0-78.0) % Lymph % (Auto) 20.6 (15.5-49.0) % [place] % (Auto) 7.6 (1.0-12.0) % Eos % (Auto) 17.3 H (0.0-7.0) % Baso % (Auto) 0.6 (0.0-2.0) % Gran # 5.2 (1.8-8.0) K/mcL Lymph # (Auto) 2.0 (1.5-4.8) K/mcL [place] # (Auto) 0.7 (0.1-0.9) K/mcL Eos # (Auto) 1.7 H (0.0-0.7) K/mcL Baso # (Auto) 0.1 (0.0-0.3) K/mcL Sodium 121 L (133-145) mmol/L Potassium 4.9 (3.3-5.1) mmol/L Chloride 86 L (96-108) mmol/L Carbon Dioxide 24 (22-30) mmol/L Anion Gap 11.0 (8-16) BUN 11 (8-23) mg/dl Creatinine 0.7 (0.6-1.1) mg/dl GFR Calculation 78 Glucose 87 (70-105) mg/dL Calcium 9.2 (8.6-10.4) mg/dl Total Bilirubin 0.3 (0.0-1.0) mg/dL AST 15 (0-37) U/l ALT 15 (0-40) U/l Alkaline Phosphatase 90 (39-117) U/L Total Creatine Kinase 33 (24-170) IU/L CK-MB (CK-2) 1.2 (0-2.9) ng/ml Myoglobin < 25 L (25-58) ng/ml Troponin T < 0.01 (0-0.03) ng/ml Total Protein 7.7 (5.9-8.4) gm/dL Albumin 4.2 (3.2-5.2) gm/dL Globulin 3.5 (2.2-3.7) gm/dL Albumin/Globulin Ratio 1.2 (1.0-2.3) Lipase 50 (7-60) U/L - Radiology Data Radiology results reviewed: Yes I reviewed the patient's radiology results. Disposition Pt seen by PLATFORM BUILDER/PA only: Yes Clinical Impression: Chest pain, Hyponatremia Disposition: Xfer As Outpt/Obs ([facility]) Condition: Fair Instructions: Chest Pain (ED), Hyponatremia (ED) Referrals: Shaye Noonan MD [Primary Care Provider] - Time of Disposition: 15:05
[2019-02-12] MEDS ORDERED: 0.9 % SODIUM CHLORIDE 1,000 ML IV SCH (14:45)
--- NOTE | 2019-02-12 15:43 | Internal Med History&Physical ---
Medical - H&P: HPI Patient information: Note initiated : 02/12/19 at 3:41 pm Service Date, if different from initiated Date: [] Patient: Fidelina Blackwell 88 y/o F admitted on for Intremittent L chest pain. Chief Complaint: [] History of present illness: Ms. Blackwell is a 88 year old F With advanced dementia presented to ED musculoskeletal lower left lateral chest wall pain. Cardiac etiology ruled out in the ED. She was found to have sodium of 121. She is wheelchair-bound. Has no acute complaints no shortness of breath nausea vomiting. She is on Aldactone as well as an SSRI. Daughter states she takes a couple cups of tea in the morning and then 3 large glass of water in the day. She is currently being treated for urinary tract infection with Augmentin. Review of Systems: Pertinent positives as above. Denies headache/fever/chills/nausea/vomiting/chest or abdominal pain/cough/dyspnea/diarrhea. 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 Hypertension GERD Hypothyroidism Past surgical history: Back surgery Family family history: Mother diabetes Father with CVA Social history: Denies tobacco alcohol she is wheelchair-bound for about a year Lives at an assisted living facility preferred care Medical - H&P: Meds Home Medications Medication Instructions Recorded Confirmed Type FLUoxetine HCL [Fluoxetine HCl] 40 mg PO DAILY 12/02/16 02/12/19 History Levothyroxine [Synthroid] 100 mcg PO QAMAC 12/02/16 02/12/19 History Memantine [Namenda] 10 mg PO DAILY 12/02/16 02/12/19 History amLODIPine [Norvasc] 2.5 mg PO DAILY 12/02/16 02/12/19 History Ranitidine HCl [Zantac] 300 mg PO DAILY 09/18/17 02/12/19 History Vitamin D3 5,000 unit PO DAILY 12/26/17 02/12/19 History Docusate Sodium [Colace] 100 mg PO BID 03/07/18 02/12/19 History Melatonin [Melatin] 5 mg PO HSP PRN 03/07/18 02/12/19 History Losartan [Cozaar] 50 mg PO BID 08/23/18 02/12/19 History Spironolactone [Aldactone] 25 mg PO DAILY 08/23/18 02/12/19 History diphenhydrAMINE [Benadryl] 25 mg PO BIDP PRN 08/23/18 02/12/19 History Acetaminophen W/Codeine #3 1 tab PO TID PRN 02/12/19 02/12/19 History [Tylenol #3] Amoxicillin/Potassium Clav 875 mg PO Q12H 02/12/19 02/12/19 History [Augmentin] Allergies Allergy/AdvReac Type Severity Reaction Status Date / Time Sulfa (Sulfonamide Allergy Intermediate Rash Verified 02/12/19 11:51 Antibiotics) Medical - H&P: Exam - Constitutional Vitals: Temp Pulse Resp BP Pulse Ox 97.2 F 64 19 169/77 96 02/12/19 11:47 02/12/19 14:31 02/12/19 15:10 02/12/19 15:01 02/12/19 14:31 Exam: General: Alert, Awake, No acute Distress Eyes/N/T: EOMI, PEERL, DMM Head/Neck: neck supple, normocephalic atraumatic CV: RRR, No murmurs, normal s1/s2 Pulm: Clear b/l, no wheezing/rhonchi/rales Abd: soft, nontender, +BS x4 Ext: no clubbing/cyanosis/edema Neuro: Alert, no focal deficits, moves all extremities, CN 2-12 grossly intact, symmetrical strength b/l upper/lower, sensations intact b/l upper/lower Skin: warm/dry Medical - H&P: Reslt - Labs CBC & Chem 7: 02/12/19 12:01 02/12/19 12:01 Labs: Short CBC 02/12/19 Range/Units 12:01 WBC 9.7 (4.5-11.0) K/mcL Hgb 12.6 (12.0-15.0) g/dL Hct 37.8 (36.0-48.0) % Plt Count 500 H (140-440) K/mcL BMP 02/12/19 12:01 Sodium 121 L Potassium 4.9 Chloride 86 L Carbon Dioxide 24 BUN 11 Creatinine 0.7 Glucose 87 Calcium 9.2 Cardiac Enzymes 02/12/19 02/12/19 Range/Units 12:01 12:01 Total Creatine Kinase 33 (24-170) IU/L CK-MB (CK-2) 1.2 (0-2.9) ng/ml Troponin T < 0.01 (0-0.03) ng/ml Liver Function 02/12/19 Range/Units 12:01 Total Bilirubin 0.3 (0.0-1.0) mg/dL AST 15 (0-37) U/l ALT 15 (0-40) U/l Alkaline Phosphatase 90 (39-117) U/L Albumin 4.2 (3.2-5.2) gm/dL Medical - H&P: A/P - Narrative A/P Narrative: A: *Acute on chronic hyponatremia: Suspect SIADH but could be also diuretic induced with her Aldactone *HTN: Elevated on admission *UTI: Diagnosed outpatient finishing course of Augmentin *Advanced dementia: *Poor functional status: Wheelchair-bound for about a year *Depression: *GERD: *Hypothyroid: Recent TSH wnl * P: -d/c aldactone -consider weaning off SSRI -Urine studies pending including osmolalities -Salt tabs -Fluid restrict -Increase Norvasc with as needed blood pressure medications -Finish antibiotic course for UTI -High risk for delirium and patient -ppx: Lovenox
--- NOTE | 2019-02-12 16:52 | XRay Report ---
CLINICAL INFORMATION: Chest Pain COMPARISON: 08/23/2018 FINDINGS: Heart size, mediastinum and pulmonary vessels are unremarkable. Lungs are clear. Right diaphragm is mildly elevated - as before. IMPRESSION: No acute disease. Mild chronic elevation right diaphragm Interpreted and Authenticated by: Oumar Lei 02/12/19
[2019-02-12] MEDS ORDERED: ONDANSETRON 4 MG/2 ML VIAL IV PRN (17:03)
[2019-02-12] MEDS ORDERED: ENALAPRILAT 2.5 MG/2 ML VIAL IV PRN (17:03)
[2019-02-12] MEDS ORDERED: MELATONIN 3 MG TABLET PO PRN ×2 (17:03→21:00)
[2019-02-12] MEDS ORDERED: diphenhydrAMINE 25 MG CAPSULE PO PRN (17:03)
[2019-02-12] MEDS ORDERED: ACETAMINOPHEN 325 MG TABLET PO PRN (17:03)
[2019-02-12] MEDS ORDERED: ACETAMINOPHEN W/CODEINE #3 1 TABLET PO PRN (17:03)
[2019-02-12] MEDS ORDERED: PROCHLORPERAZINE 10 MG/2 ML VIAL IV PRN (17:03)
[2019-02-12] MEDS ORDERED: ALBUTEROL SULFATE 2.5 MG/3 ML NEBULIZER NEB PRN (17:03)
[2019-02-12 17:34] LABS: Appearance,Urine CLEAR; Bilirubin,Urine NEG (NEG); Color,Urine STRAW; Culture Indicated,Urine NO; Glucose,Urine (UA) NEGATIVE (NEG); Ketones,Urine NEG (NEG); Leukocyte Esterase,Urine NEG /uL (NEG); Nitrate,Urine NEG (NEG); Protein,Urine NEG (NEG); Specific Gravity,Urine 1.006 (1.000-1.035); Urine Blood NEG mg/dL (<0.03); Urobilinogen,Urine NEG (NEG)
[2019-02-12 17:35] LABS: Sodium, Urine Random 62 mmol/L
[2019-02-12 17:41] LABS: Osmolality,Urine 239 mOsm/kg (80-1000)
[2019-02-12 18:05] LABS: Uric Acid 2.1 mg/dL (2.5-8.0)
[2019-02-12] MEDS: SODIUM CHLORIDE 1 GM TABLET PO SCH ×2 (18:55→20:39)
--- NOTE | 2019-02-12 18:58 | Emergency Department Note ---
ED Note Addendum Note Addendum: I discussed this case with the mid-level provider and agree with the assessment and plan.
[2019-02-12 19:32] LABS: Blood Urea Nitrogen 8 mg/dl (8-23); Calcium 9.2 mg/dl (8.6-10.4); Carbon Dioxide 22 mmol/L (22-30); Chloride 89 mmol/L (96-108); Glomerular Filtration Rate 82; Glucose 87 mg/dL (70-105); Potassium 5.3 mmol/L (3.3-5.1); Sodium 123 mmol/L (133-145)
[2019-02-12] MEDS ORDERED: LABETALOL 5 MG/ML ML IV PRN (20:13)
[2019-02-12] MEDS: 0.9 % SODIUM CHLORIDE 10 ML SYRINGE IV SCH (20:39)
[2019-02-12] MEDS: DOCUSATE SODIUM 100 MG CAPSULE PO SCH (20:39)
[2019-02-12] MEDS: FAMOTIDINE 20 MG TABLET PO SCH (20:39)
[2019-02-12] MEDS: AMOXICILLIN/POTASSIUM CLAV 875 MG TABLET PO SCH (20:39)
[2019-02-12] MEDS ORDERED: LOSARTAN 50 MG TABLET PO SCH (21:00)
[2019-02-13] MEDS: 0.9 % SODIUM CHLORIDE 10 ML SYRINGE IV SCH ×3 (04:23→21:12)
[2019-02-13 05:02] LABS: Basophils # (Auto) 0.1 K/mcL (0.0-0.3); Basophils % (Auto) 0.6 % (0.0-2.0); Eosinophils # (Auto) 1.9 K/mcL (0.0-0.7); Eosinophils % (Auto) 20.8 % (0.0-7.0); Granulocytes % (Auto) 49.6 % (38.0-78.0); Hemoglobin 12.2 g/dL (12.0-15.0); Lymphocytes # (Auto) 1.9 K/mcL (1.5-4.8); Lymphocytes % (Auto) 20.7 % (15.5-49.0); Mean Cell Volume 89.5 fL (80.0-100.0); Mean Corpuscular HGB Conc 32.9 g/dL (31.0-36.0); Mean Platelet Volume 7.5 fL (7.4-10.4); Monocytes # (Auto) 0.8 K/mcL (0.1-0.9); Monocytes % (Auto) 8.3 % (1.0-12.0); Platelet Count 420 K/mcL (140-440); RBC 4.14 M/mcL (4.00-5.20); Red Cell Distribution Width 14.3 % (11.5-14.5); WBC 9.3 K/mcL (4.5-11.0)
[2019-02-13 05:52] LABS: ALT/SGPT 12 U/l (0-40); AST/SGOT 13 U/l (0-37); Albumin 3.7 gm/dL (3.2-5.2); Albumin/Globulin Ratio 1.2 (1.0-2.3); Alkaline Phosphatase 83 U/L (39-117); Bilirubin,Direct < 0.2 mg/dL (0.0-0.3); Bilirubin,Total 0.3 mg/dL (0.0-1.0); Blood Urea Nitrogen 11 mg/dl (8-23); Calcium 9.3 mg/dl (8.6-10.4); Carbon Dioxide 23 mmol/L (22-30); Chloride 91 mmol/L (96-108); Globulin 3.1 gm/dL (2.2-3.7); Glomerular Filtration Rate 78; Glucose 87 mg/dL (70-105); Lactate Dehydrogenase 164 U/L (94-250); Magnesium 1.9 mg/dL (1.6-2.5); Phosphorous 3.3 mg/dL (2.7-4.5); Potassium 4.7 mmol/L (3.3-5.1); Sodium 126 mmol/L (133-145); Triglycerides 48 mg/dl (<150); Uric Acid 2.5 mg/dL (2.5-8.0)
--- NOTE | 2019-02-13 07:19 | Internal Med Progress Note ---
Medical - PN: Subj Patient information: Note initiated : 02/13/19 at 7:11 am Service Date, if different from initiated Date: [] Patient: Fidelina Blackwell 88 y/o F admitted on 02/12/19 for Intremittent L chest pain. Chief Complaint: [] Interval history: Ms. Blackwell is a 88 year old F With advanced dementia presented to ED musculoskeletal lower left lateral chest wall pain. Cardiac etiology ruled out in the ED. She was found to have sodium of 121. She is wheelchair-bound. Has no acute complaints no shortness of breath nausea vomiting. She is on Aldactone as well as an SSRI. Daughter states she takes a couple cups of tea in the morning and then 3 large glass of water in the day. She is currently being treated for urinary tract infection with Augmentin. 02/13 No overnight events. Patient doing well. Sodium improving. Blood pressure good. Review of Systems: denies headache/fever/chills/nausea/vomiting/chest or abdominal pain/cough/dyspnea/diarrhea. Otherwise see above. - Constitutional Vitals: Vital Signs Temp Pulse Resp BP Pulse Ox 98.2 F 63 16 118/50 94 02/13/19 03:42 02/13/19 03:42 02/13/19 03:42 02/13/19 03:42 02/13/19 03:42 Period Temp Pulse Resp BP Sys/Bacon Pulse Ox Last 24 Hr 97.2 F-98.2 F 57-72 14-24 113-204/50-114 94-100 Intake and Output 02/12/19 02/13/19 02/13/19 21:59 05:59 13:59 Intake Total 240 Output Total 200 2 Balance -200 238 Weight 53.524 kg Intake & Output: Intake & Output 02/12/19 02/13/19 02/13/19 21:59 05:59 13:59 Intake Total 240 Output Total 200 2 Balance -200 238 Weight 53.524 kg Intake: Oral 240 Output: Void Amount 200 # of times incontinent of urine 2 Other: Meal Dinner Percent of Meal Consumed 100% Stool Size Moderate Stool Color Brown # Voids 1 1 # Unmeasured Emesis 1 # Bowel Movements 1 1 Exam: General: Alert, Awake, No acute Distress Eyes/N/T: EOMI, Head/Neck: neck supple, CV: RRR, No murmurs, Pulm: Clear b/l, no wheezing/rhonchi/rales Abd: soft, nontender, +BS x4 Ext: no clubbing/cyanosis/edema Neuro: Alert, no focal deficits, moves all extremities, Skin: warm/dry Medical - PN: Obj Da - Labs CBC & Chem 7: 02/13/19 03:40 02/13/19 03:40 Labs: Abnormal Lab Results 02/13/19 02/13/19 02/12/19 03:40 03:40 18:08 RDW Plt Count Eos % (Auto) 20.8 H Eos # (Auto) 1.9 H Sodium 126 L 123 L Potassium 5.3 H Chloride 91 L 89 L Osmolality Uric Acid Myoglobin 02/12/19 02/12/19 02/12/19 16:45 12:01 12:01 RDW 14.6 H Plt Count 500 H Eos % (Auto) 17.3 H Eos # (Auto) 1.7 H Sodium 121 L Potassium Chloride 86 L Osmolality 255 L Uric Acid 2.1 L Myoglobin < 25 L Meds: Medications Acetaminophen (Tylenol) 650 mg PO Q6HP PRN PRN Reason: PAIN/FEVER > 101 Acetaminophen/Codeine Phosphate (Tylenol #3) 1 tab PO TIDP PRN PRN Reason: Pain Albuterol Sulfate (Ventolin) 2.5 mg NEB Q2HP PRN PRN Reason: Shortness Of Breath Amlodipine Besylate (Norvasc) 5 mg PO DAILY [facility] Amoxicillin/Clavulanate Potassium (Augmentin) 875 mg PO Q12H [facility]; Protocol Stop: 02/13/19 09:01 Last Admin: 02/12/19 20:39 Dose: 875 mg Documented by: Diphenhydramine HCl (Benadryl) 25 mg PO BIDP PRN PRN Reason: Allergy Symptoms Docusate Sodium (Colace) 100 mg PO BID [facility] Last Admin: 02/12/19 20:39 Dose: Not Given Documented by: Enalaprilat (Vasotec) 0 mg IV Q2HP PRN PRN Reason: Hypertension Enoxaparin Sodium (Lovenox) 30 mg SQ DAILY [facility] Famotidine (Pepcid) 20 mg PO BID [facility] Last Admin: 02/12/19 20:39 Dose: 20 mg Documented by: Fluoxetine HCl (Prozac) 30 mg PO DAILY [facility] Labetalol HCl (Trandate) 0 mg IV Q2HP PRN PRN Reason: Hypertension Levothyroxine Sodium (Synthroid) 100 mcg PO QAMAC [facility] Melatonin (Melatonin 3mg Tablet) 6 mg PO HSP PRN PRN Reason: Insomnia Memantine (Namenda) 10 mg PO DAILY [facility] Ondansetron HCl (Zofran) 4 mg IV Q6HP PRN PRN Reason: Nausea And Vomiting Prochlorperazine (Compazine) 5 mg IV Q4HP PRN PRN Reason: Nausea And Vomiting Sodium Chloride (Saline Flush) 10 ml IV Q8 [facility] Last Admin: 02/13/19 04:23 Dose: 10 ml Documented by: Sodium Chloride (Sodium Chloride) 1 gm PO TID [facility] Last Admin: 02/12/19 20:39 Dose: 1 gm Documented by: Medical - PN: A/P - Time Spent With Patient Total time spent is greater than 50% in coordination of care (as documented) at patient's floor/unit and/or counseling patient: - Narrative A/P Narrative: A: *Acute on chronic hyponatremia: appears to be SIADH but Aldactone could also be component -improving, cortisol/tsh wnl *HTN: Elevated on admission, better controlled now *UTI: Diagnosed outpatient finishing course of Augmentin *Advanced dementia: *Poor functional status: Wheelchair-bound for about a year *Depression: *GERD: *Hypothyroid: Recent TSH wnl (02/07) * P: -d/c aldactone -consider weaning off SSRI (decreased some already, consider continued wean per PCP) -Salt tabs, Fluid restrict -Increase Norvasc from 2.5 to 5mg -Finish antibiotic course for UTI -High risk for delirium and patient -ppx: Lovenox Medical - PN: Qual - VTE Deep Vein Thrombosis/Pulmonary Embolism Present on Admission: No
[2019-02-13] MEDS: LEVOTHYROXINE 100 MCG TABLET PO SCH (07:35)
[2019-02-13] MEDS: ENOXAPARIN 30 MG/0.3 ML SYRINGE SQ SCH (09:17)
[2019-02-13] MEDS: FAMOTIDINE 20 MG TABLET PO SCH ×2 (09:18→21:11)
[2019-02-13] MEDS: amLODIPine 5 MG TABLET PO SCH (09:18)
[2019-02-13] MEDS: FLUoxetine HCL 10 MG CAPSULE PO SCH (09:18)
[2019-02-13] MEDS: MEMANTINE 10 MG TABLET PO SCH (09:18)
[2019-02-13] MEDS: SODIUM CHLORIDE 1 GM TABLET PO SCH ×3 (09:18→21:11)
[2019-02-13] MEDS: DOCUSATE SODIUM 100 MG CAPSULE PO SCH ×2 (09:19→21:11)
[2019-02-13] MEDS: AMOXICILLIN/POTASSIUM CLAV 875 MG TABLET PO SCH (09:22)
--- NOTE | 2019-02-13 09:37 | Discharge Summary ---
Medical - DS: Prov Patient information: Note initiated : 02/13/19 at 9:34 am Service Date, if different from initiated Date: [] Patient: Fidelina Blackwell 88 y/o F admitted on 02/12/19 for Intremittent L chest pain. Chief Complaint: [] Date of admission: 02/12/19 16:53 Discharge date: 02/14/19 Primary care physician: Shaye Noonan Medical - DS: Meds - Discharge Medications Prescriptions: amLODIPine [Norvasc] 5 mg PO DAILY #30 tab Sodium Chloride 1 gm PO DAILY #30 tab Active and Home Medications: Home Medications FLUoxetine HCL [Fluoxetine HCl] 40 mg PO DAILY 12/02/16 [History Confirmed 02/12/19 Last Taken 02/12/19] Levothyroxine [Synthroid] 100 mcg PO QAMAC 12/02/16 [History Confirmed 02/12/19 Last Taken 02/12/19] Memantine [Namenda] 10 mg PO DAILY 12/02/16 [History Confirmed 02/12/19 Last Taken 02/11/19] amLODIPine [Norvasc] 2.5 mg PO DAILY 12/02/16 [History Confirmed 02/12/19 Last Taken 02/12/19] Ranitidine HCl [Zantac] 300 mg PO DAILY 09/18/17 [History Confirmed 02/12/19 Last Taken 02/11/19] Vitamin D3 5,000 unit PO DAILY 12/26/17 [History Confirmed 02/12/19 Last Taken 02/12/19] Docusate Sodium [Colace] 100 mg PO BID 03/07/18 [History Confirmed 02/12/19 Last Taken 02/11/19] Melatonin [Melatin] 5 mg PO HSP PRN 03/07/18 [History Confirmed 02/12/19 Last Taken 02/11/19] Losartan [Cozaar] 50 mg PO BID 08/23/18 [History Confirmed 02/12/19 Last Taken 02/12/19] Spironolactone [Aldactone] 25 mg PO DAILY 08/23/18 [History Confirmed 02/12/19 Last Taken 02/12/19] diphenhydrAMINE [Benadryl] 25 mg PO BIDP PRN 08/23/18 [History Confirmed 02/12/19 Last Taken Unknown] Acetaminophen W/Codeine #3 [Tylenol #3] 1 tab PO TID PRN 02/12/19 [History Confirmed 02/12/19 Last Taken Unknown] Acetaminophen [Tylenol] 1 - 2 tab PO Q6HP PRN 02/12/19 [History Confirmed 02/12/19 Last Taken Unknown] Amoxicillin/Potassium Clav [Augmentin] 875 mg PO Q12H 02/12/19 [History Confirmed 02/12/19 Last Taken 02/12/19] Fexofenadine [Emily] 1 tab PO DAILY 02/12/19 [History Confirmed 02/12/19 Last Taken Unknown] Ketotifen Fumarate [Children's [place]] 1 drp BID 02/12/19 [History Confirmed 02/12/19 Last Taken Unknown] Nystatin 1 appful TOPICAL PRN PRN 02/12/19 [History Confirmed 02/12/19 Last Taken Unknown] Phenylephrine/Shk Lv/Mo/Pet,Wh [Hemorrhoidal Ointment] 1 dose TOPICAL QIDP PRN 02/12/19 [History Confirmed 02/12/19 Last Taken Unknown] Polyethylene Glycol 3350 [Miralax] 17 gm PO DAILY 02/12/19 [History Confirmed 02/12/19 Last Taken Unknown] guaiFENesin/DEXTROMETHORPHAN [Tussin Dm Cough Syrup] 10 ml PO Q4HP PRN 02/12/19 [History Confirmed 02/12/19 Last Taken Unknown] Home Medications Levothyroxine [Synthroid] 100 mcg PO QAMAC 12/02/16 [History Confirmed 02/12/19 Last Taken 02/12/19] Memantine [Namenda] 10 mg PO DAILY 12/02/16 [History Confirmed 02/12/19 Last Taken 02/11/19] Ranitidine HCl [Zantac] 300 mg PO DAILY 09/18/17 [History Confirmed 02/12/19 Last Taken 02/11/19] Vitamin D3 5,000 unit PO DAILY 12/26/17 [History Confirmed 02/12/19 Last Taken 02/12/19] Docusate Sodium [Colace] 100 mg PO BID 03/07/18 [History Confirmed 02/12/19 Last Taken 02/11/19] Melatonin [Melatin] 5 mg PO HSP PRN 03/07/18 [History Confirmed 02/12/19 Last Taken 02/11/19] Losartan [Cozaar] 50 mg PO BID 08/23/18 [History Confirmed 02/12/19 Last Taken 02/12/19] diphenhydrAMINE [Benadryl] 25 mg PO BIDP PRN 08/23/18 [History Confirmed 02/12/19 Last Taken Unknown] Acetaminophen W/Codeine #3 [Tylenol #3] 1 tab PO TID PRN 02/12/19 [History Confirmed 02/12/19 Last Taken Unknown] Acetaminophen [Tylenol] 1 - 2 tab PO Q6HP PRN 02/12/19 [History Confirmed 02/12/19 Last Taken Unknown] Fexofenadine [Emily] 1 tab PO DAILY 02/12/19 [History Confirmed 02/12/19 Last Taken Unknown] Ketotifen Fumarate [Children's [place]] 1 drp BID 02/12/19 [History Confirmed 02/12/19 Last Taken Unknown] Nystatin 1 appful TOPICAL PRN PRN 02/12/19 [History Confirmed 02/12/19 Last Taken Unknown] Phenylephrine/Shk Lv/Mo/Pet,Wh [Hemorrhoidal Ointment] 1 dose TOPICAL QIDP PRN 02/12/19 [History Confirmed 02/12/19 Last Taken Unknown] Polyethylene Glycol 3350 [Miralax] 17 gm PO DAILY 02/12/19 [History Confirmed 02/12/19 Last Taken Unknown] guaiFENesin/DEXTROMETHORPHAN [Tussin Dm Cough Syrup] 10 ml PO Q4HP PRN 02/12/19 [History Confirmed 02/12/19 Last Taken Unknown] FLUoxetine HCL [Prozac] 30 mg PO DAILY capsule 02/13/19 [Rx Last Taken Unknown] Sodium Chloride 1 gm PO DAILY #30 tab 02/13/19 [Rx Last Taken Unknown] amLODIPine [Norvasc] 5 mg PO DAILY #30 tab 02/13/19 [Rx Last Taken Unknown] Medical - DS: Hosp Hospital course: Ms. Blackwell is a 88 year old F With advanced dementia presented to ED musculoskeletal lower left lateral chest wall pain. Cardiac etiology ruled out in the ED. She was found to have sodium of 121. She is wheelchair-bound. Has no acute complaints no shortness of breath nausea vomiting. She is on Aldactone as well as an SSRI. Daughter states she takes a couple cups of tea in the morning and then 3 large glass of water in the day. She is currently being treated for urinary tract infection with Augmentin. 02/13 No overnight events. Patient doing well. Sodium improving. Blood pressure good. 02/14 Doing well. No overnight events. Stable for discharge. Discharge diagnosis: Hyponatremia SIADH advanced dementia hypertensive urgency UTI Secondary discharge diagnosis: Impression GERD hypothyroidism - Time Spent with Patient Total time spent providing and/or coordinating discharge services: Greater than 30 minutes Medical - DS: Exam - Constitutional Vitals: Vital Signs Temp Pulse Pulse Resp BP BP Pulse Ox 02/13/19 08:00 96.9 F L 67 18 130/62 96 02/13/19 03:42 98.2 F 63 16 118/50 94 02/12/19 23:11 97.8 F 62 16 113/56 94 02/12/19 19:46 97.3 F 72 16 148/68 96 02/12/19 19:37 16 96 02/12/19 18:15 66 18 02/12/19 17:30 98.2 F 20 174/71 96 02/12/19 17:29 98.2 F 64 20 174/71 96 02/12/19 17:04 97.2 F 63 18 165/64 96 02/12/19 16:33 63 18 96 02/12/19 16:31 62 19 165/64 95 02/12/19 16:16 63 20 172/68 95 02/12/19 16:01 64 19 162/63 96 02/12/19 15:46 62 24 H 162/65 97 02/12/19 15:31 64 18 172/73 99 02/12/19 15:16 21 168/76 02/12/19 15:10 19 02/12/19 15:01 16 169/77 02/12/19 14:51 20 184/70 02/12/19 14:31 64 17 161/70 96 02/12/19 14:16 61 16 135/114 98 02/12/19 14:01 62 18 159/60 97 02/12/19 13:46 65 24 H 149/82 100 02/12/19 13:31 61 14 167/66 98 02/12/19 13:16 58 L 19 153/65 100 02/12/19 13:01 57 L 18 154/63 96 02/12/19 12:46 61 21 164/77 97 02/12/19 12:31 69 20 204/69 94 02/12/19 12:16 64 17 164/74 99 02/12/19 12:08 65 16 173/72 97 02/12/19 11:47 97.2 F 71 16 157/73 98 Intake and Output 02/12/19 02/13/19 02/13/19 21:59 05:59 13:59 Intake Total 240 Output Total 200 2 Balance -200 238 Intake: Oral 240 Output: Void Amount 200 # of times incontinent of urine 2 Other: Meal Dinner Percent of Meal Consumed 100% Stool Size Moderate Stool Color Brown # Voids 1 1 # Unmeasured Emesis 1 # Bowel Movements 1 1 Weight 53.524 kg Medical - DS: Data Labs on day of discharge: Labs from last 24 hours 02/13/19 02/13/19 02/13/19 03:40 03:40 03:40 WBC 9.3 RBC 4.14 Hgb 12.2 Hct 37.0 MCV 89.5 MCH 29.5 MCHC 32.9 RDW 14.3 Plt Count 420 MPV 7.5 Gran % 49.6 Lymph % (Auto) 20.7 [place] % (Auto) 8.3 Eos % (Auto) 20.8 H Baso % (Auto) 0.6 Gran # 4.6 Lymph # (Auto) 1.9 [place] # (Auto) 0.8 Eos # (Auto) 1.9 H Baso # (Auto) 0.1 Sodium 126 L Potassium 4.7 Chloride 91 L Carbon Dioxide 23 Anion Gap 12.0 BUN 11 Creatinine 0.7 GFR Calculation 78 Glucose 87 Osmolality Uric Acid 2.5 Calcium 9.3 Phosphorus 3.3 Magnesium 1.9 Total Bilirubin 0.3 Direct Bilirubin < 0.2 GGT 25 AST 13 ALT 12 Alkaline Phosphatase 83 Lactate Dehydrogenase 164 Total Creatine Kinase CK-MB (CK-2) Myoglobin Troponin T Total Protein 6.8 Albumin 3.7 Globulin 3.1 Albumin/Globulin Ratio 1.2 Triglycerides 48 Lipase Random Cortisol 5.62 Urine Color Urine Appearance Urine pH Ur Specific [place] Urine Protein Urine Glucose (UA) Urine Ketones Urine Occult Blood Urine Nitrate Urine Bilirubin Urine Urobilinogen Ur Leukocyte Esterase Ur Culture Indicated? Urine Osmolality Ur Random Creatinine Ur Random Sodium 02/12/19 02/12/19 02/12/19 18:08 16:45 16:45 WBC RBC Hgb Hct MCV MCH MCHC RDW Plt Count MPV Gran % Lymph % (Auto) [place] % (Auto) Eos % (Auto) Baso % (Auto) Gran # Lymph # (Auto) [place] # (Auto) Eos # (Auto) Baso # (Auto) Sodium 123 L Potassium 5.3 H Chloride 89 L Carbon Dioxide 22 Anion Gap 12.0 BUN 8 Creatinine 0.6 GFR Calculation 82 Glucose 87 Osmolality 255 L Uric Acid 2.1 L Calcium 9.2 Phosphorus Magnesium Total Bilirubin Direct Bilirubin GGT AST ALT Alkaline Phosphatase Lactate Dehydrogenase Total Creatine Kinase CK-MB (CK-2) Myoglobin Troponin T Total Protein Albumin Globulin Albumin/Globulin Ratio Triglycerides Lipase Random Cortisol Urine Color Straw Urine Appearance Clear Urine pH 7.0 Ur Specific [place] 1.006 Urine Protein Neg Urine Glucose (UA) Negative Urine Ketones Neg Urine Occult Blood Neg Urine Nitrate Neg Urine Bilirubin Neg Urine Urobilinogen Neg Ur Leukocyte Esterase Neg Ur Culture Indicated? No Urine Osmolality Ur Random Creatinine Ur Random Sodium 02/12/19 02/12/19 02/12/19 16:45 16:45 12:01 WBC RBC Hgb Hct MCV MCH MCHC RDW Plt Count MPV Gran % Lymph % (Auto) [place] % (Auto) Eos % (Auto) Baso % (Auto) Gran # Lymph # (Auto) [place] # (Auto) Eos # (Auto) Baso # (Auto) Sodium Potassium Chloride Carbon Dioxide Anion Gap BUN Creatinine GFR Calculation Glucose Osmolality Uric Acid Calcium Phosphorus Magnesium Total Bilirubin Direct Bilirubin GGT AST ALT Alkaline Phosphatase Lactate Dehydrogenase Total Creatine Kinase CK-MB (CK-2) Myoglobin Troponin T < 0.01 Total Protein Albumin Globulin Albumin/Globulin Ratio Triglycerides Lipase Random Cortisol Urine Color Urine Appearance Urine pH Ur Specific [place] Urine Protein Urine Glucose (UA) Urine Ketones Urine Occult Blood Urine Nitrate Urine Bilirubin Urine Urobilinogen Ur Leukocyte Esterase Ur Culture Indicated? Urine Osmolality 239 Ur Random Creatinine 22.8 Ur Random Sodium 62 02/12/19 02/12/19 12:01 12:01 WBC 9.7 RBC 4.29 Hgb 12.6 Hct 37.8 MCV 88.0 MCH 29.4 MCHC 33.4 RDW 14.6 H Plt Count 500 H MPV 7.4 Gran % 53.9 Lymph % (Auto) 20.6 [place] % (Auto) 7.6 Eos % (Auto) 17.3 H Baso % (Auto) 0.6 Gran # 5.2 Lymph # (Auto) 2.0 [place] # (Auto) 0.7 Eos # (Auto) 1.7 H Baso # (Auto) 0.1 Sodium 121 L Potassium 4.9 Chloride 86 L Carbon Dioxide 24 Anion Gap 11.0 BUN 11 Creatinine 0.7 GFR Calculation 78 Glucose 87 Osmolality Uric Acid Calcium 9.2 Phosphorus Magnesium Total Bilirubin 0.3 Direct Bilirubin GGT AST 15 ALT 15 Alkaline Phosphatase 90 Lactate Dehydrogenase Total Creatine Kinase 33 CK-MB (CK-2) 1.2 Myoglobin < 25 L Troponin T Total Protein 7.7 Albumin 4.2 Globulin 3.5 Albumin/Globulin Ratio 1.2 Triglycerides Lipase 50 Random Cortisol Urine Color Urine Appearance Urine pH Ur Specific [place] Urine Protein Urine Glucose (UA) Urine Ketones Urine Occult Blood Urine Nitrate Urine Bilirubin Urine Urobilinogen Ur Leukocyte Esterase Ur Culture Indicated? Urine Osmolality Ur Random Creatinine Ur Random Sodium Medical - DS: A/P - Patient/Caregiver Discharge Instructions Activity: as per physical therapy Diet: Regular Diet Prescriptions: amLODIPine [Norvasc] 5 mg PO DAILY #30 tab Sodium Chloride 1 gm PO DAILY #30 tab - Follow up Plan Follow up with: Shaye Noonan MD [Primary Care Provider] - Disposition: Xfer Other Prognosis: Fair Rehab Potential: Fair Overall status at discharge: patient is back to baseline Medical - DS: Qual - VTE Deep Vein Thrombosis/Pulmonary Embolism Present on Admission: No
[2019-02-14] MEDS: 0.9 % SODIUM CHLORIDE 10 ML SYRINGE IV SCH (04:35)
[2019-02-14 05:59] LABS: Blood Urea Nitrogen 18 mg/dl (8-23); Calcium 8.9 mg/dl (8.6-10.4); Carbon Dioxide 23 mmol/L (22-30); Chloride 98 mmol/L (96-108); Glomerular Filtration Rate 78; Glucose 96 mg/dL (70-105); Potassium 4.2 mmol/L (3.3-5.1); Sodium 131 mmol/L (133-145)
[2019-02-14] MEDS: LEVOTHYROXINE 100 MCG TABLET PO SCH (06:55)
[2019-02-14] MEDS: SODIUM CHLORIDE 1 GM TABLET PO SCH (09:07)
[2019-02-14] MEDS: FAMOTIDINE 20 MG TABLET PO SCH (09:07)
[2019-02-14] MEDS: amLODIPine 5 MG TABLET PO SCH (09:07)
[2019-02-14] MEDS: MEMANTINE 10 MG TABLET PO SCH (09:07)
[2019-02-14] MEDS: FLUoxetine HCL 10 MG CAPSULE PO SCH (09:08)
[2019-02-14] MEDS: ENOXAPARIN 30 MG/0.3 ML SYRINGE SQ SCH (09:08)
[2019-02-14] MEDS: DOCUSATE SODIUM 100 MG CAPSULE PO SCH (09:08)
== END 2019-02-14 12:45 | disposition other institution (70) | DRG 644 ==
LOC: ED 11:46 → INTOOBSV 16:53 → MEDSUR 16:53 → OBSVTOIN 16:53 → MEDSUR 17:04
PROVIDERS: ADMIT Internal Medicine; ATTEND Internal Medicine